=== PATIENT | female | born 1955 | race Caucasian/White ===

== ENCOUNTER → 2018-08-17 09:47 | Outpatient (CLI) | payer OTHER, SELFPAY ==
[2018-03-27 11:15] VITALS: BMI 42.0
--- NOTE | 2018-08-17 09:49 | DI.MG.S_ITS ---
BILATERAL DIGITAL SCREENING MAMMOGRAM 3D/2D WITH CAD: 08/17/2018 CLINICAL: Routine screening. Family history of breast cancer. Comparison is made to exams dated: 03/28/2016 mammogram, 03/25/2015 mammogram, and 03/20/2014 mammogram - [facility]. There are scattered fibroglandular elements in both breasts. Current study was also evaluated with a Computer Aided Detection (CAD) system. No significant masses, calcifications, or other findings are seen in either breast. There has been no significant interval change. IMPRESSION: NEGATIVE There is no mammographic evidence of malignancy. A 1 year screening mammogram is recommended.(08/18/2019) This exam was interpreted at Station ID: [id number]. NOTE: For mammograms, a report in lay terms will be sent to the patient. Approximately 15% of breast malignancies will not be visualized mammographically. In the management of a palpable breast mass, a negative mammogram must not discourage biopsy of a clinically suspicious lesion. Electronically Signed By: Morelia saldaña/asaf:08/19/2018 10:52:02 letter sent: Normal Exam ACR BI-RADS Category 1: Negative 3341F
== END ==
PROVIDERS: PCP Internal Medicine; Visit Provider Internal Medicine
DX: Z12.31 Encounter for screening mammogram for malignant neoplasm of breast (principal); Z80.3 Family history of malignant neoplasm of breast
CPT/HCPCS: 77063; 77067

== ENCOUNTER → 2019-03-11 12:03 | Outpatient (CLI) | payer OTHER, SELFPAY ==
[2018-03-27 11:15] VITALS: BMI 42.0
--- NOTE | 2019-03-11 12:05 | DI.RAD.S_ITS ---
PROCEDURE: XR HIP W PEL IF DONE LT MIN 4V INDICATIONS: hip pain TECHNIQUE: AP pelvis with lateral view(s) of the right hip(s). COMPARISON: None. FINDINGS: Bones: No fractures or dislocations. Pelvic ring appears intact. No suspicious bony lesions. Moderate degenerative changes of the right hip are present. There also are mild to moderate degenerative changes involving the remainder of the imaged pelvic joints. Soft tissues: The visualized bowel gas pattern is normal. No suspicious soft tissue calcifications. IMPRESSION: Moderate degenerative changes of the right hip without a displaced fracture evident. Dictated by: Rich Mora M.D. on 03/11/2019 at 12:37 Approved by: Rich Mora M.D. on 03/11/2019 at 12:37
== END ==
PROVIDERS: PCP Internal Medicine; Visit Provider Physician Assistant
DX: M16.11 Unilateral primary osteoarthritis, right hip (principal); M25.559 Pain in unspecified hip
CPT/HCPCS: 73522

== ENCOUNTER → 2019-04-10 11:33 | Outpatient (CLI) | payer OTHER, SELFPAY ==
[2018-03-27 11:15] VITALS: BMI 42.0
[2019-04-10 12:14] LABS: Influenza A and B by PCR Rapid Negative (Negative)
== END ==
PROVIDERS: PCP Internal Medicine; Visit Provider Physician Assistant
DX: R68.89 Other general symptoms and signs (principal)
CPT/HCPCS: 87400

== ENCOUNTER → 2019-04-10 15:32 | Outpatient (CLI) | payer OTHER, SELFPAY ==
[2018-03-27 11:15] VITALS: BMI 42.0
--- NOTE | 2019-04-10 15:34 | DI.RAD.S_ITS ---
PROCEDURE: XR CHEST 2V INDICATIONS: left upper lobe abnormal lung sounds TECHNIQUE: 2 views of the chest were acquired. COMPARISON: None. FINDINGS: Surgical changes and devices: None. Lungs and pleura: Patchy airspace opacities noted in the right lung concerning for pneumonia. No pleural effusions or pneumothorax. Mediastinum: Mediastinal contours are normal. Heart size is normal. Bones and chest wall: No suspicious bony abnormalities. Soft tissues appear unremarkable. IMPRESSION: Patchy right lung airspace opacities concerning for multilobar pneumonia. Dictated by: Vanessa Calvillo MD, PhD on 04/10/2019 at 15:50 Approved by: Vanessa Calvillo MD, PhD on 04/10/2019 at 15:51
== END ==
PROVIDERS: PCP Internal Medicine; Visit Provider Physician Assistant
DX: R05 Cough (principal); R68.89 Other general symptoms and signs
CPT/HCPCS: 71046; 87400

== ENCOUNTER → 2019-04-15 09:38 | Outpatient (CLI) | payer OTHER, SELFPAY ==
[2018-03-27 11:15] VITALS: BMI 42.0
--- NOTE | 2019-04-15 09:40 | DI.RAD.S_ITS ---
PROCEDURE: XR CHEST 2V INDICATIONS: cough TECHNIQUE: 2 views of the chest were acquired. COMPARISON: [facility], CR, XR CHEST 2V, 04/10/2019, 15:37. FINDINGS: Surgical changes and devices: None. Lungs and pleura: There is interval improvement of right upper lobe and right lower lobe consolidation since 04/10/19.. No pleural effusions or pneumothorax. Mediastinum: Mediastinal contours are normal. Heart size is normal. Bones and chest wall: No suspicious bony abnormalities. Soft tissues appear unremarkable. IMPRESSION: Interval improvement in right upper lobe and right lower lobe pneumonia since 04/10/19. Persistent bilateral ill-defined mild and groundglass opacities raise the possibility of background chronic interstitial disease/scarring versus superimposed pulmonary edema. Recommend clinical correlation. If there is persistent clinical diagnostic uncertainty, continued surveillance with short interval chest radiographs after treatment is recommended. Dictated by: Rodolfo Salinas M.D. on 04/15/2019 at 9:16 Approved by: Rodolfo Salinas M.D. on 04/15/2019 at 9:24
== END ==
PROVIDERS: PCP Internal Medicine; Visit Provider Physician Assistant
DX: J18.9 Pneumonia, unspecified organism (principal); R05 Cough
CPT/HCPCS: 71046

== ENCOUNTER → 2019-04-18 15:25 | Outpatient (CLI) | payer OTHER, SELFPAY ==
[2018-03-27 11:15] VITALS: BMI 42.0
[2019-04-18 17:35] LABS: Blood Urea Nitrogen 12 mg/dL (7-17); Calcium 9.8 mg/dL (8.4-10.2); Carbon Dioxide 33 mmol/L (22-32); Chloride 101 mmol/L (98-107); Estimated Glomerular Filt Rate > 60.0 mL/min (>60); Glucose 134 mg/dL (80-110); HEMOLYSIS < 15 (0-50); Potassium 5.2 mmol/L (3.4-5.1); Sodium 141 mmol/L (137-145)
[2019-04-18 17:41] LABS: Hematocrit 37.7 % (36-46); Mean Corpuscular HGB Conc 31.9 % (30-36); Mean Corpuscular Hemoglobin 23.7 PG (26-34); Mean Corpuscular Volume 74.3 fL (80-100); Platelet Count 458 X10^3/uL (150-400); Red Blood Cell Count 5.07 X10^6/uL (4.0-5.2); Red Cell Distribution Width 18.6 % (11.6-14.8); White Blood Cell Count 10.3 X10^3/uL (4.5-11.0)
[2019-04-18 17:48] LABS: Add Manual Diff / Slide Review YES
[2019-04-18 18:30] LABS: Anisocytosis 1+; Neutrophils Absolute Manual 8240 /uL (3000-5900); Total Cells Counted 100
[2019-04-18 18:31] LABS: Hypochromasia 1+; Poikilocytosis 1+
== END ==
PROVIDERS: PCP Family Medicine; Visit Provider Hospitalist
DX: J18.9 Pneumonia, unspecified organism (principal)
CPT/HCPCS: 36415; 80048; 85025

== ENCOUNTER → 2019-05-02 08:45 | Outpatient (CLI) | payer OTHER, SELFPAY ==
[2018-03-27 11:15] VITALS: BMI 42.0
[2019-05-02 09:04] LABS: Add Manual Diff / Slide Review NO; Basophils Absolute Auto 100 /uL (0-100); Basophils Percent Auto 1.3 % (0-2); Eosinophils Absolute Auto 400 /uL (0-450); Eosinophils Percent Auto 7.9 % (2-4); Hematocrit 37.7 % (36-46); Hemoglobin 12.1 g/dL (12.0-16.0); Lymphocytes Absolute Auto 2000 /uL (1100-4500); Lymphocytes Percent Auto 41.6 % (25-40); Mean Corpuscular HGB Conc 32.2 % (30-36); Mean Corpuscular Volume 74.7 fL (80-100); Monocytes Absolute Auto 500 /uL (0-900); Monocytes Percent Auto 9.4 % (3-14); Neutrophils Absolute Auto 1900 /uL (1500-7000); Neutrophils Percent Auto 39.8 % (50-75); Platelet Count 220 X10^3/uL (150-400); Red Blood Cell Count 5.04 X10^6/uL (4.0-5.2); Red Cell Distribution Width 19.8 % (11.6-14.8); White Blood Cell Count 4.8 X10^3/uL (4.5-11.0)
[2019-05-02 09:27] LABS: Blood Urea Nitrogen 14 mg/dL (7-17); Calcium 9.2 mg/dL (8.4-10.2); Carbon Dioxide 30 mmol/L (22-32); Chloride 104 mmol/L (98-107); Estimated Glomerular Filt Rate > 60.0 mL/min (>60); Glucose 98 mg/dL (80-110); HEMOLYSIS < 15 (0-50); Potassium 4.3 mmol/L (3.4-5.1); Sodium 139 mmol/L (137-145)
== END ==
PROVIDERS: PCP Family Medicine; Visit Provider Hospitalist
DX: E87.5 Hyperkalemia (principal); J18.9 Pneumonia, unspecified organism
CPT/HCPCS: 36415; 80048; 85025

== ENCOUNTER → 2019-05-28 14:33 | Outpatient (CLI) | payer OTHER, SELFPAY ==
[2018-03-27 11:15] VITALS: BMI 42.0
[2019-05-28 14:57] LABS: Add Manual Diff / Slide Review NO; Basophils Absolute Auto 100 /uL (0-100); Basophils Percent Auto 1.4 % (0-2); Eosinophils Absolute Auto 300 /uL (0-450); Eosinophils Percent Auto 4.3 % (2-4); Hemoglobin 12.3 g/dL (12.0-16.0); Lymphocytes Absolute Auto 2300 /uL (1100-4500); Lymphocytes Percent Auto 34.5 % (25-40); Mean Corpuscular HGB Conc 31.6 % (30-36); Mean Corpuscular Hemoglobin 24.7 PG (26-34); Mean Corpuscular Volume 78.2 fL (80-100); Monocytes Absolute Auto 600 /uL (0-900); Monocytes Percent Auto 9.6 % (3-14); Neutrophils Absolute Auto 3400 /uL (1500-7000); Neutrophils Percent Auto 50.2 % (50-75); Platelet Count 193 X10^3/uL (150-400); Red Blood Cell Count 4.98 X10^6/uL (4.0-5.2); White Blood Cell Count 6.8 X10^3/uL (4.5-11.0)
[2019-05-28 15:40] LABS: Alanine Aminotransferase 18 IU/L (9-52); Albumin 4.2 g/dL (3.5-5.0); Albumin Globulin Ratio 1.3 (1.0-2.8); Alkaline Phosphatase 63 U/L (38-126); Aspartate Aminotransferase 19 IU/L (14-36); Blood Urea Nitrogen 12 mg/dL (7-17); Calcium 9.4 mg/dL (8.4-10.2); Carbon Dioxide 30 mmol/L (22-32); Chloride 104 mmol/L (98-107); Cholesterol 194 mg/dL (140-199); Estimated Glomerular Filt Rate > 60.0 mL/min (>60); Globulin 3.2 g/dL (1.7-4.1); Glucose 89 mg/dL (80-110); HDL Cholesterol 100 mg/dL (40-60); HEMOLYSIS < 15 (0-50); LDL Cholesterol Calculated 82 mg/dL (<100); Potassium 4.2 mmol/L (3.4-5.1); Sodium 141 mmol/L (137-145); Total Protein 7.4 g/dL (6.3-8.2); Triglycerides 62 mg/dL (35-150)
[2019-05-28 15:51] LABS: Appearance Urine UA CLEAR; Bilirubin Urine UA NEGATIVE (NEGATIVE); Color Urine UA YELLOW; Glucose Urine UA NEGATIVE (Negative); Ketones Urine UA NEGATIVE (NEGATIVE); Leukocyte Esterase Urine UA 1+ (NEGATIVE); Nitrite Urine UA NEGATIVE (Negative); Occult Blood Urine UA NEGATIVE (Negative); Protein Urine UA NEGATIVE (Negative); Specific Gravity Urine UA 1.015 (1.000-1.035); Urobilinogen Urine UA 0.2 E.U./dL (0.2)
[2019-05-28 15:52] LABS: Bacteria Urine None Seen; RBC Urine None Seen (0-5/HPF); WBC Urine None Seen (0-5/HPF)
[2019-05-28 15:57] LABS: Free T3, Triiodothyronine Free 3.55 pg/mL (2.77-5.27)
[2019-05-28 16:07] LABS: Culture Indicated Urine Specimen Cultured; Renal Epithelial Cells Urine 0-1/HPF (0-1/HPF)
[2019-05-28 16:10] LABS: Thyroid Stimulating Hormone 0.85 uIU/mL (0.47-4.68)
== END ==
PROVIDERS: PCP Family Medicine; Visit Provider Family Medicine
DX: M25.551 Pain in right hip (principal); Z13.220 Encounter for screening for lipoid disorders; Z13.29 Encounter for screening for other suspected endocrine disorder; Z51.81 Encounter for therapeutic drug level monitoring
CPT/HCPCS: 36415; 80053; 80061; 81003; 81015; 84439; 84443; 84481; 85025; 87086; 87147

== ENCOUNTER → 2020-03-29 08:54 | Outpatient (CLI) | payer OTHER, SELFPAY ==
[2018-03-27 11:15] VITALS: BMI 42.0
[2020-03-29 10:39] LABS: Thyroid Stimulating Hormone 0.55 uIU/mL (0.47-4.68)
== END ==
PROVIDERS: PCP Nurse Practitioner Family; Referring Provider Nurse Practitioner Family; Visit Provider Nurse Practitioner Family
DX: E03.9 Hypothyroidism, unspecified (principal)
CPT/HCPCS: 36415; 84443

== ENCOUNTER → 2020-09-14 10:36 | Outpatient (CLI) | payer OTHER, SELFPAY ==
[2018-03-27 11:15] VITALS: BMI 42.0
[2020-09-15 06:45] LABS: COVID19 Sendout Not Detected (Not Detect)
== END ==
PROVIDERS: PCP Nurse Practitioner Family; Visit Provider Nurse Practitioner
DX: Z11.59 Encounter for screening for other viral diseases (principal)
CPT/HCPCS: 87635

== ENCOUNTER 2020-09-17 07:28 | Day surgery (SDC) | payer OTHER, SELFPAY ==
[2018-03-27 11:15] VITALS: BMI 42.0
--- NOTE | 2020-09-17 | PATH_ITS ---
[facility] Accession Number: [id number] . 01 Material submitted: . body - HYPERPLASTIC POLYPS AT 15CM . 02 Diagnosis: Colon, Polyps at 15 cm, Biopsy: Hyperplastic polyps. MRV 09/21/2020 1050 Local . 02 Electronically signed: . Cristina Wilhelm MD, Pathologist NPI- [id number] . 01 Gross description: . The specimen is received in formalin, labeled hyperplastic polyp at 15 cm, and consists of two banks-pink fragments of soft tissue measuring 0.5 x 0.4 x 0.2 cm in aggregate. The specimen is entirely submitted in cassette A1. ([id number]) /FRR 09/18/2020 1718 Local . 02 Pathologist provided ICD-10: K63.5 . 02 CPT . 934541 Performed at: 01 [facility] Located within [facility] [address], [place], [place] [id number] MD Jacob Lim MD Phone: [phone] Performed at: 02 [facility] [address] [place], [place] [id number] MD Cristina Wilhelm MD Phone: [phone]
[2020-09-17 07:45] VITALS: BMI 41.8
[2020-09-17 07:50] VITALS: BP 142/83; PULSE 82; RESP 12; TEMP 36.8; O2SAT 95
[2020-09-17] MEDS: SODIUM CHLORIDE 0.9% 1,000 ML 200 ML IV (07:58)
--- NOTE | 2020-09-17 08:16 | P.HP_ITS ---
History of Present Illness History of Present Illness Date Patient Seen: 09/17/20 Time Patient Seen: 08:17 Chief complaint: SDC Narrative: This is a 65-year-old woman who had a prior colonoscopy 14 years ago, which was reportedly normal. She denies any new symptoms of hematochezia, melena, unexplained abdominal pain, unexplained weight loss. She denies any significant medical problems with her heart or any difficulty tolerating sedation in the past. She denies sleep apnea or dyspnea on exertion. ROS: Sinus drainage, arthritis, urinary frequency/urgency, urinary incontinence, depression. Thirteen system review is otherwise negative other than as mentione d below and in HPI. PE GENERAL: Well groomed and cooperative. Morbidly obese, with weight distribution in the abdomen and hips. Appears stated age. Answers questions promptly and appropriately. Vital signs noted. HENT: Normocephalic, atraumatic. Hearing intact. EYES: Conjunctiva pink, sclera white, no periorbital swelling. CARDIOVASCULAR: Regular rate. No pedal edema. RESPIRATORY: Non-tachypneic, breathing comfortably on room air. GASTROINTESTINAL: Abdomen soft and non-distended GENITALURINARY: No flank tenderness. MUSCULOSKELETAL: Equal tone and mass bilaterally. SKIN: Warm, dry, soft, appropriate color for ethnicity. No other lesions, rashes, or wounds. NEURO: Alert and Oriented X 3. No gross sensory deficits, or cognitive issues. PSYCH: Appropriate affect and mood. Patient History Medical History Ankle fracture, left (Acute) Arthritis (Acute) Depression (Acute) Heartburn (Acute) History of urinary frequency (Acute) Hypothyroidism (Acute) Knee pain, bilateral (Acute) Menopause (Acute) Pneumonia (Acute) Screening for malignant neoplasm of breast (Acute) Screening for malignant neoplasm of colon (Acute) Urinary urgency (Acute) Vision impairment (Acute) Vitamin D deficiency (Acute) Surgical History H/O knee surgery (Acute) H/O knee surgery (Acute) Family & Social History Social History: household members spouse Tobacco & Substance use: Tobacco type cigarettes Smoking Status Former smoker alcohol intake current alcohol intake frequency 0-2 drinks per day Substance Use Type does not use Meds Home Medications and Allergies Home Medications Medication Instructions Recorded Confirmed Type Glucosamine-MSM Complex 3,000 mg PO QDAY 03/19/18 09/17/20 History cholecalciferol (vitamin D3) 5,000 unit PO DAILY 03/19/18 09/17/20 History [Vitamin D3] cyanocobalamin (vitamin B-12) 1,000 mcg PO DAILY 03/19/18 09/17/20 History [Vitamin B-12] trazodone 50 mg tablet 50 mg PO BEDTIME #90 tab 05/28/19 09/17/20 Rx levothyroxine 88 mcg tablet 88 mcg PO DAILY #90 tab 08/26/20 09/17/20 Rx fluoxetine 60 mg tablet 60 mg PO DAILY #90 tab 09/12/20 09/17/20 Rx Allergies Allergy/AdvReac Type Severity Reaction Status Date / Time oxytetracycline Allergy Unknown Rash Verified 09/17/20 07:41 [From Terramycin] Penicillins Allergy Unknown Rash Verified 09/17/20 07:41 codeine AdvReac Intermediate Vomiting Verified 09/17/20 07:41 Exam Vital Signs (past 8 hours): - 09/17/20 07:50 Temperature 98.3 F Pulse Rate 82 Respiratory Rate 12 Blood Pressure 142/83 H Pulse Oximetry 95 Oxygen Delivery Method Room Air Assessment & Plan Assessment and plan (1) At average risk for colon cancer: Status: Acute Assessment & Plan narrative: Risks and benefits of screening colonoscopy and possible polypectomy were discussed with the patient including risk of bleeding, perforation, need for additional procedures, risks of anesthesia. The patient desires to proceed with the colonoscopy procedure. COVID-19 COVID-19 status: Negative Result date/Date tested (Pos, Neg/Pending): 09/14/20 Time Spent With Patient Time with patient: 15-24 minutes Quality VTE Deep Vein Thrombosis/Pulmonary Embolism Present on Admission: No
[2020-09-17] MEDS: fentaNYL 250 MCG/5 ML INJ IV (08:18)
[2020-09-17] MEDS: MIDAZOLAM 5 MG/5 ML VIAL IV (08:18)
--- NOTE | 2020-09-17 08:19 | P.OP.ENDO_ITS ---
Operative Date/Time/Diagnoses Date of procedure: 09/17/20 Time of procedure: 08:19 Pre-op diagnosis: Average risk for colon cancer Post-op diagnosis: other (Two small polyps) Procedure & Clinicians Study performed: Colonoscopy Procedural sedation performed by the endoscopist Polypectomy x2 with cold forceps Same procedure as scheduled: Yes Indications: Average risk for colon cancer, greater than 10 years since last colonoscopy Surgeon: Elisabeth Reilly Procedure Notes SCOAP/Timeout: Performed Procedure in detail: The patient was brought to the room and placed in left lateral decubitus position with all bony prominences padded. A time-out was performed and then the patient was given procedural sedation starting with 2 mg of Versed and 100 mcg of fentanyl. A total of 4 mg of Versed and 150 micro g of fentanyl were given for the entire procedure. Vitals were monitored throughout the procedure and remained stable. Once adequately sedated, the procedure was begun. A rectal exam was performed revealing no abnormalities. The colonoscope was then introduced to the rectum and advanced to the cecum in the usual fashion. The cecum was identified by the appendiceal orifice, the mucosal tri- fold, and the ileocecal valve. The scope was then retracted while rotating side to side and examining each mucosal fold. Two small polyps were found at 15 cm in the rectum, and removed completely with Jumbo forceps. At the conclusion of the procedure retroflexion was performed and small grade 1-2 internal hemorrhoids without stigmata of bleeding were seen. The scope was then withdrawn from the rectum the procedure was concluded. The patient tolerated the procedure well and was transferred to the PACU in stable condition. Scope withdrawal time: 11 Sedation minutes: 28 Findings: polyp Specimen(s): other (Two small polyps from the rectum) Complications: none Impression: Two benign-appearing polyps were found and removed from the rectum. Post-procedure Recommendations: Colonscopy in 10 years (Final recommendation will be sent to the patient after pathology results are returned) Follow up: as needed Disposition: PACU
[2020-09-17 08:55] VITALS: BP 119/78; PULSE 87; RESP 17; TEMP 36.3; O2SAT 96
[2020-09-17 09:05] VITALS: BP 132/76; PULSE 68; RESP 15; O2SAT 96
[2020-09-17 09:10] VITALS: BP 108/66; PULSE 63; RESP 14; TEMP 36.9; O2SAT 97
== END 2020-09-17 09:22 | disposition home or self-care (01) ==
PROVIDERS: PCP Nurse Practitioner Family; Referring Provider Nurse Practitioner Family; Visit Provider Surgery
PROC: 0DJD8ZZ Inspection of Lower Intestinal Tract, Via Natural or Artificial Opening Endoscopic (ICD-10-PCS; CPT 45378; principal; 2020-09-17 08:30)
DX: Z12.11 Encounter for screening for malignant neoplasm of colon (principal); N39.41 Urge incontinence; F32.9 Major depressive disorder, single episode, unspecified; K64.0 First degree hemorrhoids; K63.5 Polyp of colon
CPT/HCPCS: 45380; 99152; 99153; J2250; J3010

== ENCOUNTER → 2020-09-18 08:13 | Outpatient (CLI) | payer OTHER, SELFPAY ==
[2018-03-27 11:15] VITALS: BMI 42.0
--- NOTE | 2020-09-18 08:14 | DI.MG.S_ITS ---
BILATERAL DIGITAL SCREENING MAMMOGRAM 3D/2D WITH CAD: 09/18/2020 CLINICAL: Routine screening. Family history of breast cancer. Comparison is made to exams dated: 08/17/2018 mammogram, 03/28/2016 mammogram, and 03/25/2015 mammogram - [facility]. There are scattered fibroglandular elements in both breasts. Current study was also evaluated with a Computer Aided Detection (CAD) system. No significant masses, calcifications, or other findings are seen in either breast. There has been no significant interval change. IMPRESSION: NEGATIVE There is no mammographic evidence of malignancy. A 1 year screening mammogram is recommended. This exam was interpreted at Station ID: [id number]. NOTE: For mammograms, a report in lay terms will be sent to the patient. Approximately 15% of breast malignancies will not be visualized mammographically. In the management of a palpable breast mass, a negative mammogram must not discourage biopsy of a clinically suspicious lesion. Electronically Signed By: Jacob dempsey/asaf:09/20/2020 07:51:10 letter sent: Normal Exam ACR BI-RADS Category 1: Negative 3341F
== END ==
PROVIDERS: PCP Nurse Practitioner Family; Referring Provider Nurse Practitioner Family; Visit Provider Nurse Practitioner Family
DX: Z12.31 Encounter for screening mammogram for malignant neoplasm of breast (principal); Z80.3 Family history of malignant neoplasm of breast
CPT/HCPCS: 77063; 77067

== ENCOUNTER 2020-10-17 16:53 | Emergency (ER) | payer OTHER, SELFPAY ==
[2018-03-27 11:15] VITALS: BMI 42.0
[2020-10-17] VITALS (10 sets, daily range): BP systolic 124–148; BP diastolic 70–78; PULSE 60–92; RESP 16–20; TEMP 36; O2SAT 93–98
--- NOTE | 2020-10-17 17:02 | DI.RAD.S_ITS ---
PROCEDURE: XR SHOULDER LT MIN 2V INDICATIONS: fall pain TECHNIQUE: 3 views of the shoulder were acquired. COMPARISON: None. FINDINGS: Bones: No fractures or dislocations. No suspicious bony lesions. Visualized ribs appear intact. Mild degenerative changes of the acromioclavicular and glenohumeral joints. Soft tissues: No suspicious soft tissue calcifications. IMPRESSION: No acute osseous abnormality. Dictated by: Morgan Figueroa D.O. on 10/17/2020 at 16:27 Approved by: Morgan Figueroa D.O. on 10/17/2020 at 16:28
--- NOTE | 2020-10-17 17:02 | DI.RAD.S_ITS ---
PROCEDURE: XR CHEST 1V INDICATIONS: fall TECHNIQUE: One view of the chest was acquired. COMPARISON: [facility]erged [facility], CR, XR CHEST 2V, 04/15/2019, 10:02. FINDINGS: Surgical changes and devices: None. Lungs and pleura: No focal consolidation, pneumothorax, or pleural effusion. There is interval resolution of previously noted opacities. Mediastinum: Mediastinal contours appear normal. Heart size is normal. Bones and chest wall: No suspicious bony lesions. No displaced rib fractures. Overlying soft tissues appear unremarkable. IMPRESSION: No acute cardiopulmonary abnormality. No displaced rib fractures within limits of this exam. Dictated by: Morgan Figueroa D.O. on 10/17/2020 at 16:14 Approved by: Morgan Figueroa D.O. on 10/17/2020 at 16:17
--- NOTE | 2020-10-17 17:02 | DI.RAD.S_ITS ---
PROCEDURE: XR PELVIS 1-2V INDICATIONS: fall TECHNIQUE: 1 view(s) of the pelvis acquired. COMPARISON: None. FINDINGS: Bones: No fractures or dislocations. No suspicious bony lesions. Moderate degenerative changes of the hips. Degenerative changes of the spine are incompletely evaluated. Soft tissues: Visualized bowel gas pattern is normal. Pelvic phleboliths. IMPRESSION: No acute osseous abnormality. Moderate degenerative changes of the hips. Dictated by: Morgan Figueroa D.O. on 10/17/2020 at 16:17 Approved by: Morgan Fgiueroa D.O. on 10/17/2020 at 16:19
--- NOTE | 2020-10-17 17:02 | DI.CT.S_ITS ---
PROCEDURE: CT HEAD/BRAIN WO CON INDICATIONS: fall down stairs TECHNIQUE: Noncontrast 4.5 mm thick angled axial sections acquired from the foramen magnum to the vertex, with coronal and sagittal reformats. For radiation dose reduction, the following was used: automated exposure control, adjustment of mA and/or kV according to patient size. COMPARISON: None. FINDINGS: Image quality: Excellent. CSF spaces: Basal cisterns are patent. No extra-axial fluid collections. Ventricles are normal in size and shape. Brain: No midline shift. No intracranial masses or hemorrhage. Wilson-white matter interface is normal. Skull and face: Calvarium and visualized facial bones are intact, without suspicious lesions. Large hematoma overlying the left occiput. Sinuses: Visualized sinuses and mastoids are clear. IMPRESSION: Large soft tissue hematoma overlying the left occiput. No evidence of a displaced skull fracture or acute intracranial hemorrhage. Dictated by: Morgan Figueroa D.O. on 10/17/2020 at 16:29 Approved by: Morgan Figueroa D.O. on 10/17/2020 at 16:32
--- NOTE | 2020-10-17 17:02 | DI.CT.S_ITS ---
PROCEDURE: CT CERVICAL SPINE WO CON INDICATIONS: fall down stairs TECHNIQUE: Noncontrast 3 mm thick sections acquired from the skull base to the T4 level. Sagittal and coronal reformats were then constructed. For radiation dose reduction, the following was used: automated exposure control, adjustment of mA and/or kV according to patient size. COMPARISON: [facility], CR, XR SHOULDER LT MIN 2V, 10/17/2020, 17:07. FINDINGS: Image quality: Excellent. Bones: There is a nondisplaced fracture of the superior facet on the right C6. No additional fractures are noted. No listhesis. Vertebral body heights are maintained. There is multilevel intervertebral disc space loss worse C5-C6 and C6-C7. There is endplate degenerative changes. No significant spinal canal stenosis. There is mild to moderate neural foraminal stenosis at these levels. Soft tissues: Prevertebral soft tissues are normal in thickness. No paravertebral hematomas. No apical pneumothoraces. IMPRESSION: Nondisplaced fracture of the superior facet of C6. No additional fracture or traumatic subluxation. Moderate degenerative spondylopathy worse at C5-C6 and C6-C7. Findings discussed with the ordering provider Dr. Elli Nicole by Dr. Morgan Figueroa over the telephone 4:45 p.m. [place] Standard time on 10/17/2020 Dictated by: Mrogan Figueroa D.O. on 10/17/2020 at 16:33 Approved by: Morgan Figueroa D.O. on 10/17/2020 at 16:49
[2020-10-17] MEDS: MORPHINE 2 MG/ML INJ IV (17:41)
[2020-10-17] MEDS: ONDANSETRON 4 MG/2 ML INJ IV (17:41)
--- NOTE | 2020-10-17 17:49 | ED_ITS ---
HPI - Trauma <Elli Nicole DO - Last Filed: 10/18/20 07:09> General Chief Complaint: Trauma Stated Complaint: modified trauma Time Seen by Provider: 10/17/20 17:02 Source: patient and EMS Mode of arrival: Ambulatory Limitations: no limitations History of Present Illness HPI narrative: Patient is a 65-year-old female who fell down at least 5 stairs. She apparently was bringing the vacuum up the stairs she fell up putting her head through the drywall. She does not remember getting up to sit in the chair but her eventually found her in the chair. She is not on any blood thin ner she has no nausea or vomiting. Complaining of left shoulder pain as well. MD complaint: fall Onset (ago): unknown Loss of Consciousness: yes Location: head Location - Extremities: Left: shoulder Related Data Home Medications Medication Instructions Recorded Confirmed Glucosamine-MSM Complex 3,000 mg PO QDAY 03/19/18 09/17/20 cholecalciferol (vitamin D3) 5,000 unit PO DAILY 03/19/18 09/17/20 [Vitamin D3] cyanocobalamin (vitamin B-12) 1,000 mcg PO DAILY 03/19/18 09/17/20 [Vitamin B-12] Previous Rx's Medication Instructions Recorded trazodone 50 mg tablet 50 mg PO BEDTIME #90 tab 05/28/19 levothyroxine 88 mcg tablet 88 mcg PO DAILY #90 tab 08/26/20 fluoxetine 60 mg tablet 60 mg PO DAILY #90 tab 09/12/20 Allergies Allergy/AdvReac Type Severity Reaction Status Date / Time oxytetracycline Allergy Unknown Rash Verified 09/17/20 07:41 [From Terramycin] Penicillins Allergy Unknown Rash Verified 09/17/20 07:41 codeine AdvReac Intermediate Vomiting Verified 09/17/20 07:41 Review of Systems <DO Emory Vasquez Last Filed: 10/18/20 07:09> Review of Systems Narrative: GENERAL: Denies chills, fatigue, malaise, fever, sweats, travel HEENT: Denies sinus pain, ear pain, sore throat, difficulty swallowing, neck pain RESPIRATORY: Denies dyspnea, cough, wheezing, hemoptysis, sputum. CARDIOVASCULAR: Denies chest pain, palpitations, orthopnea, edema GASTROINTESTINAL: Denies nausea, vomiting, abdominal pain, diarrhea, constipation, melena. : Denies dysuria, frequency, incontinence, hematuria, urinary retention, flank pain. MUSCULOSKELETAL: See HPI SKIN: No rash, no erythema, no pruritus NEUROLOGIC: Denies weakness, dizziness, headache, numbness, change in speech, confusion PSYCHIATRIC: No concerning psychosocial issues. 12 point review of systems is negative except for those stated above and HPI Patient History <Elli Nicole DO - Last Filed: 10/18/20 07:09> Medical History (Updated 10/17/20 @ 21:38 by Kenton Aldana DO) Ankle fracture, left Arthritis Depression Heartburn History of urinary frequency Hypothyroidism Knee pain, bilateral Menopause Pneumonia Screening for malignant neoplasm of breast Screening for malignant neoplasm of colon Urinary urgency Vision impairment Vitamin D deficiency Surgical History H/O knee surgery H/O knee surgery Social History household members: spouse Smoking Status: Former smoker alcohol intake: current Smoking Status: Former smoker alcohol intake frequency: 0-2 drinks per day Substance Use Type: does not use Exam <Elli Nicole DO - Last Filed: 10/18/20 07:09> Initial Vital Signs Initial Vital Signs: Vital Signs Temperature 96.8 F L 10/17/20 17:02 Pulse Rate 60 10/17/20 17:02 Respiratory Rate 20 10/17/20 17:02 Blood Pressure 142/76 H 10/17/20 17:02 Pulse Oximetry 98 10/17/20 17:02 GENERAL: Well-appearing, well-nourished and in no acute distress. HEENT: Head contusion left parietal,, EOMI, pupils reactive, face symmetric, moist mucous membranes, no hemotympanum, no septal hematoma NECK: Midline tenderness and some right-sided tenderness about C5 see 6. C- collar placed in the ED CARDIOVASCULAR: Regular rate and rhythm without murmurs, rubs or gallops. RESPIRATORY: Breath sounds equal bilaterally, no wheezes rales or rhonchi. No crepitations, no subcutaneous air, chest is nontender, no signs of trauma ABDOMEN: Soft, nontender. Normoactive bowel sounds all 4 quadrants. No guarding or rebound. BACK: Nontender vertebrae, no step-offs, no contusions PELVIS: stable. EXTREMITIES: Normal range of motion, no clubbing or edema. Right upper extremity: Within normal limits Left upper extremity: Abrasion possible deformity and on the left shoulder sensation deltoid intact again strong distal radial pulse Right lower extremity: Within normal limits Left lower extremity:Within normal limits NEUROLOGICAL: Cranial nerves II through XII grossly intact. Normal gait and speech. SKIN: Warm, dry, no petechiae, no rashes or lesions, no contusions or ecchymosis <Kenton Aldana, DO - Last Filed: 10/17/20 23:23> Initial Vital Signs Initial Vital Signs: Vital Signs Temperature 96.8 F L 10/17/20 17:02 Pulse Rate 60 10/17/20 17:02 Respiratory Rate 20 10/17/20 17:02 Blood Pressure 142/76 H 10/17/20 17:02 Pulse Oximetry 98 10/17/20 17:02 Course <Elli Nicole DO - Last Filed: 10/18/20 07:09> Orders Ordered: Discontinued Medications Hydromorphone HCl (Hydromorphone 0.5 Mg Inj) 0.5 mg IV NOW ONE Stop: 10/17/20 18:22 Last Admin: 10/17/20 18:30 Dose: 0.5 mg Documented by: Morphine Sulfate (Morphine 2 Mg/Ml Inj) 2 mg IV NOW ONE Stop: 10/17/20 17:03 Last Admin: 10/17/20 17:41 Dose: 2 mg Documented by: MMINOR Ondansetron HCl (Ondansetron 4 Mg/2 Ml Inj) 4 mg IV NOW ONE Stop: 10/17/20 17:03 Last Admin: 10/17/20 17:41 Dose: 4 mg Documented by: MMINOR Vital Signs Vital signs: Vital Signs - 8 hr 10/17/20 17:02 10/17/20 17:38 10/17/20 18:00 Temperature 96.8 F L Pulse Rate 60 63 72 Respiratory Rate 20 Blood Pressure 142/76 H 148/75 H Pulse Oximetry 98 98 95 10/17/20 18:30 10/17/20 19:00 10/17/20 19:30 Temperature Pulse Rate 78 88 86 Respiratory Rate Blood Pressure 145/70 H 138/76 128/73 Pulse Oximetry 97 96 95 10/17/20 20:00 10/17/20 20:30 10/17/20 21:00 Temperature Pulse Rate 88 92 H 90 Respiratory Rate 17 Blood Pressure 143/74 H 135/78 124/74 Pulse Oximetry 96 95 93 10/17/20 21:30 Temperature Pulse Rate 91 H Respiratory Rate 16 Blood Pressure 129/75 Pulse Oximetry 94 <Kenton Aldana, DO - Last Filed: 10/17/20 23:23> Course Course Narrative: Patient received in sign-out from Dr. Nicole. I have performed an independent history and physical have no significant additions to make. She continues to have no numbness, tingling or weakness of her right upper extremity. We have searched for an [place] collar but have known in stock until it least tomorrow. Images have been pushed to [facility] have placed a call to speak with spine trauma 1854 - [facility] who requests I speak with Neurosurgery 1934 - call from Dr. Sellers who has reviewed images, not likely surgical candidate, but accepts transfer, requests we speak with ED 1940 - Dr. Martinez ([facility]) happy to accept Orders Ordered: Discontinued Medications Hydromorphone HCl (Hydromorphone 0.5 Mg Inj) 0.5 mg IV NOW ONE Stop: 10/17/20 18:22 Last Admin: 10/17/20 18:30 Dose: 0.5 mg Documented by: Morphine Sulfate (Morphine 2 Mg/Ml Inj) 2 mg IV NOW ONE Stop: 10/17/20 17:03 Last Admin: 10/17/20 17:41 Dose: 2 mg Documented by: MMINOR Ondansetron HCl (Ondansetron 4 Mg/2 Ml Inj) 4 mg IV NOW ONE Stop: 10/17/20 17:03 Last Admin: 10/17/20 17:41 Dose: 4 mg Documented by: MMINOR Vital Signs Vital signs: Vital Signs - 8 hr 10/17/20 17:02 10/17/20 17:38 10/17/20 18:00 Temperature 96.8 F L Pulse Rate 60 63 72 Respiratory Rate 20 Blood Pressure 142/76 H 148/75 H Pulse Oximetry 98 98 95 10/17/20 18:30 10/17/20 19:00 10/17/20 19:30 Temperature Pulse Rate 78 88 86 Respiratory Rate Blood Pressure 145/70 H 138/76 128/73 Pulse Oximetry 97 96 95 10/17/20 20:00 10/17/20 20:30 10/17/20 21:00 Temperature Pulse Rate 88 92 H 90 Respiratory Rate 17 Blood Pressure 143/74 H 135/78 124/74 Pulse Oximetry 96 95 93 10/17/20 21:30 Temperature Pulse Rate 91 H Respiratory Rate 16 Blood Pressure 129/75 Pulse Oximetry 94 MDM - Trauma <Elli Nicole, DO - Last Filed: 10/18/20 07:09> Lab Data Result diagrams: 10/17/20 17:37 10/17/20 17:37 Labs: Lab Results 10/17/20 10/17/20 10/17/20 Range/Units 17:37 17:37 18:58 WBC 9.6 (4.5-11.0) X10^3/uL RBC 5.00 (4.0-5.2) X10^6/uL Hgb 14.4 (12.0-16.0) g/dL Hct 43.3 (36-46) % MCV 86.5 (80-100) fL MCH 28.8 (26-34) PG MCHC 33.3 (30-36) % RDW 15.3 H (11.6-14.8) % Plt Count 168 (150-400) X10^3/uL Neut % (Auto) 72.3 (50-75) % Lymph % (Auto) 18.1 L (25-40) % Kendall % (Auto) 7.7 (3-14) % Eos % (Auto) 1.2 L (2-4) % Baso % (Auto) 0.7 (0-2) % Neut # (Auto) 6900 (0166-9730) /uL Lymph # (Auto) 1700 (1645-1403) /uL Kendall # (Auto) 700 (0-900) /uL Eos # (Auto) 100 (0-450) /uL Baso # (Auto) 100 (0-100) /uL Sodium 138 (137-145) mmol/L Potassium 3.6 (3.4-5.1) mmol/L Chloride 106 (98-107) mmol/L Carbon Dioxide 27 (22-32) mmol/L BUN 19 H (7-17) mg/dL Creatinine 0.69 (0.52-1.04) mg/dL Estimated GFR > 60.0 (>60) mL/min BUN/Creatinine Ratio 27.5 H (6-22) Glucose 126 H (80-110) mg/dL Calcium 9.3 (8.4-10.2) mg/dL Total Bilirubin 0.8 (0.2-1.3) mg/dL AST 38 H (14-36) IU/L ALT 16 (<35) IU/L Alkaline Phosphatase 72 (38-126) U/L Total Creatine Kinase 719 H (30-135) U/L CK-MB (CK-2) 13.40 H (<2.37) ng/mL CK-MB (CK-2) Rel Index 1.9 (1.5-5.0) % Troponin I < 0.012 (0.01-0.034) ng/mL Total Protein 7.4 (6.3-8.2) g/dL Albumin 4.0 (3.5-5.0) g/dL Globulin 3.4 (1.7-4.1) g/dL Albumin/Globulin Ratio 1.2 (1.0-2.8) COVID-19 PCR Negative (Negative) Imaging Data CT scan - head: Radiologist's Impression: PROCEDURE: CT HEAD/BRAIN WO CON INDICATIONS: fall down stairs TECHNIQUE: Noncontrast 4.5 mm thick angled axial sections acquired from the foramen magnum to the vertex, with coronal and sagittal reformats. For radiation dose reduction, the following was used: automated exposure control, adjustment of mA and/or kV according to patient size. COMPARISON: None. FINDINGS: Image quality: Excellent. CSF spaces: Basal cisterns are patent. No extra-axial fluid collections. Ventricles are normal in size and shape. Brain: No midline shift. No intracranial masses or hemorrhage. Wilson-white matter interface is normal. Skull and face: Calvarium and visualized facial bones are intact, without suspicious lesions. Large hematoma overlying the left occiput. Sinuses: Visualized sinuses and mastoids are clear. IMPRESSION: Large soft tissue hematoma overlying the left occiput. No evidence of a displaced skull fracture or acute intracranial hemorrhage. Dictated by: Morgan Figueroa D.O. on 10/17/2020 at 16:29 CT - cervical spine: Radiologist's Impression: PROCEDURE: CT CERVICAL SPINE WO CON INDICATIONS: fall down stairs TECHNIQUE: Noncontrast 3 mm thick sections acquired from the skull base to the T4 level. Sagittal and coronal reformats were then constructed. For radiation dose reduction, the following was used: automated exposure control, adjustment of mA and/or kV according to patient size. COMPARISON: [facility], , XR SHOULDER LT MIN 2V, 10/17/2020, 17:07. FINDINGS: Image quality: Excellent. Bones: There is a nondisplaced fracture of the superior facet on the right C6. No additional fractures are noted. No listhesis. Vertebral body heights are maintained. There is multilevel intervertebral disc space loss worse C5-C6 and C6-C7. There is endplate degenerative changes. No significant spinal canal stenosis. There is mild to moderate neural foraminal stenosis at these levels. Soft tissues: Prevertebral soft tissues are normal in thickness. No paravertebral hematomas. No apical pneumothoraces. IMPRESSION: Nondisplaced fracture of the superior facet of C6. No additional fracture or traumatic subluxation. Moderate degenerative spondylopathy worse at C5-C6 and C6-C7. Findings discussed with the ordering provider Dr. Elli Nicole by Dr. Morgan Figueroa over the telephone 4:45 p.m. [place] Standard time on 10/17/2020 Dictated by: Morgan Figueroa D.O. on 10/17/2020 at 16:33 Extremity x-ray #1: Radiologist's Impression: PROCEDURE: XR SHOULDER LT MIN 2V INDICATIONS: fall pain TECHNIQUE: 3 views of the shoulder were acquired. COMPARISON: None. FINDINGS: Bones: No fractures or dislocations. No suspicious bony lesions. Visualized ribs appear intact. Mild degenerative changes of the acromioclavicular and glenoh umeral joints. Soft tissues: No suspicious soft tissue calcifications. IMPRESSION: No acute osseous abnormality. Dictated by: Morgan Figueroa D.O. on 10/17/2020 at 16:27 Extremity x-ray #2: Radiologist's Impression: PROCEDURE: XR PELVIS 1-2V INDICATIONS: fall TECHNIQUE: 1 view(s) of the pelvis acquired. COMPARISON: None. FINDINGS: Bones: No fractures or dislocations. No suspicious bony lesions. Moderate degenerative changes of the hips. Degenerative changes of the spine are incompletely evalua francisco. Soft tissues: Visualized bowel gas pattern is normal. Pelvic phleboliths. IMPRESSION: No acute osseous abnormality. Moderate degenerative changes of the hips. Dictated by: Morgan Figueroa D.O. on 10/17/2020 at 16:17 ECG Data Attestation: I personally reviewed and interpreted this ECG as follows: Prior ECG tracings: available for review Interpretation: Normal sinus rhythm rate 69 p.r. interval 139 QRS [address] changes similar to previous EKG MDM Narrative Medical decision making narrative: Patient is found to have a C6 facet fracture. Patient signed out to Dr. Aldana for further management <Kenton Aldana, - Last Filed: 10/17/20 23:23> Lab Data Labs: Lab Results 10/17/20 10/17/20 10/17/20 Range/Units 17:37 17:37 18:58 WBC 9.6 (4.5-11.0) X10^3/uL RBC 5.00 (4.0-5.2) X10^6/uL Hgb 14.4 (12.0-16.0) g/dL Hct 43.3 (36-46) % MCV 86.5 (80-100) fL MCH 28.8 (26-34) PG MCHC 33.3 (30-36) % RDW 15.3 H (11.6-14.8) % Plt Count 168 (150-400) X10^3/uL Neut % (Auto) 72.3 (50-75) % Lymph % (Auto) 18.1 L (25-40) % Kendall % (Auto) 7.7 (3-14) % Eos % (Auto) 1.2 L (2-4) % Baso % (Auto) 0.7 (0-2) % Neut # (Auto) 6900 (6448-1650) /uL Lymph # (Auto) 1700 (0730-4124) /uL Kendall # (Auto) 700 (0-900) /uL Eos # (Auto) 100 (0-450) /uL Baso # (Auto) 100 (0-100) /uL Sodium 138 (137-145) mmol/L Potassium 3.6 (3.4-5.1) mmol/L Chloride 106 (98-107) mmol/L Carbon Dioxide 27 (22-32) mmol/L BUN 19 H (7-17) mg/dL Creatinine 0.69 (0.52-1.04) mg/dL Estimated GFR > 60.0 (>60) mL/min BUN/Creatinine Ratio 27.5 H (6-22) Glucose 126 H (80-110) mg/dL Calcium 9.3 (8.4-10.2) mg/dL Total Bilirubin 0.8 (0.2-1.3) mg/dL AST 38 H (14-36) IU/L ALT 16 (<35) IU/L Alkaline Phosphatase 72 (38-126) U/L Total Creatine Kinase 719 H (30-135) U/L CK-MB (CK-2) 13.40 H (<2.37) ng/mL CK-MB (CK-2) Rel Index 1.9 (1.5-5.0) % Troponin I < 0.012 (0.01-0.034) ng/mL Total Protein 7.4 (6.3-8.2) g/dL Albumin 4.0 (3.5-5.0) g/dL Globulin 3.4 (1.7-4.1) g/dL Albumin/Globulin Ratio 1.2 (1.0-2.8) COVID-19 PCR Negative (Negative) Discharge Plan Departure Patient Disposition: [facility] Clinical Impression: C6 cervical fracture Qualifiers: Encounter type: initial encounter Fracture type: closed Fracture morphology: unspecified fracture morphology Fracture alignment: nondisplaced Qualified Code(s): S12.501A - Unspecified nondisplaced fracture of sixth cervical vert ebra, initial encounter for closed fracture Concussion Qualifiers: Encounter type: initial encounter Loss of consciousness presence/duration: with LOC of 30 min or less Qualified Code(s): S06.0X1A - Concussion with loss of consciousness of 30 minutes or less, initial encounter Prescriptions: No Action fluoxetine 60 mg tablet 60 mg PO DAILY Qty: 90 RF: 1 trazodone 50 mg tablet 50 mg PO BEDTIME Qty: 90 RF: 1 levothyroxine 88 mcg tablet 88 mcg PO DAILY Qty: 90 RF: 2 cyanocobalamin (vitamin B-12) [Vitamin B-12] 1,000 mcg Tablet 1,000 mcg PO DAILY RF: 0 Glucosamine-MSM Complex 500-333-5 mg Capsule 3,000 mg PO QDAY RF: 0 cholecalciferol (vitamin D3) [Vitamin D3] 5,000 unit Tablet 5,000 unit PO DAILY RF: 0 Referrals: Eugene Allen ARNP [Primary Care Provider] -
[2020-10-17 17:53] LABS: Add Manual Diff / Slide Review NO; Basophils Absolute Auto 100 /uL (0-100); Basophils Percent Auto 0.7 % (0-2); Eosinophils Absolute Auto 100 /uL (0-450); Eosinophils Percent Auto 1.2 % (2-4); Hematocrit 43.3 % (36-46); Hemoglobin 14.4 g/dL (12.0-16.0); Lymphocytes Absolute Auto 1700 /uL (1100-4500); Lymphocytes Percent Auto 18.1 % (25-40); Mean Corpuscular HGB Conc 33.3 % (30-36); Mean Corpuscular Hemoglobin 28.8 PG (26-34); Mean Corpuscular Volume 86.5 fL (80-100); Monocytes Absolute Auto 700 /uL (0-900); Monocytes Percent Auto 7.7 % (3-14); Neutrophils Absolute Auto 6900 /uL (1500-7000); Neutrophils Percent Auto 72.3 % (50-75); Platelet Count 168 X10^3/uL (150-400); Red Cell Distribution Width 15.3 % (11.6-14.8); White Blood Cell Count 9.6 X10^3/uL (4.5-11.0)
[2020-10-17 18:01] LABS: Alanine Aminotransferase 16 IU/L (<35); Albumin Globulin Ratio 1.2 (1.0-2.8); Alkaline Phosphatase 72 U/L (38-126); Aspartate Aminotransferase 38 IU/L (14-36); BUN Creatinine Ratio 27.5 (6-22); Bilirubin Total 0.8 mg/dL (0.2-1.3); Blood Urea Nitrogen 19 mg/dL (7-17); Calcium 9.3 mg/dL (8.4-10.2); Carbon Dioxide 27 mmol/L (22-32); Chloride 106 mmol/L (98-107); Creatine Kinase 719 U/L (30-135); Estimated Glomerular Filt Rate > 60.0 mL/min (>60); Globulin 3.4 g/dL (1.7-4.1); Glucose 126 mg/dL (80-110); HEMOLYSIS < 15 (0-50); Potassium 3.6 mmol/L (3.4-5.1); Sodium 138 mmol/L (137-145); Total Protein 7.4 g/dL (6.3-8.2)
[2020-10-17 18:13] LABS: Troponin I < 0.012 ng/mL (0.01-0.034)
[2020-10-17 18:17] LABS: CKMB % Relative Index 1.9 % (1.5-5.0)
[2020-10-17] MEDS: HYDROMORPHONE 0.5 MG INJ IV (18:30)
[2020-10-17 19:40] LABS: COVID19 -Nasal RAPID Negative (Negative)
== END 2020-10-17 21:55 | disposition short-term general hospital (02) ==
PROVIDERS: Emergency Medicine; Emergency Provider Emergency Medicine; PCP Nurse Practitioner Family
DX: S12.501A Unspecified nondisplaced fracture of sixth cervical vertebra, initial encounter for closed fracture (principal); S06.0X1A Concussion with loss of consciousness of 30 minutes or less, initial encounter; M25.512 Pain in left shoulder; W10.9XXA Fall (on) (from) unspecified stairs and steps, initial encounter
CPT/HCPCS: 36415; 70450; 71045; 72125; 72170; 73030; 80053; 82550; 82553; 84484; 85025; 87635; 93005; 93010; 96374; 96375; 99285; J1170; J2270; J2405

== ENCOUNTER → 2020-10-25 12:54 | Outpatient (CLI) | payer OTHER, SELFPAY ==
[2018-03-27 11:15] VITALS: BMI 42.0
--- NOTE | 2020-10-25 13:10 | DI.RAD.S_ITS ---
PROCEDURE: XR CERVICAL SPINE 2V OR 3V INDICATIONS: C SPINE INJURY TECHNIQUE: 3 view(s) of the cervical spine were acquired. COMPARISON: None. FINDINGS: Bones: No fracture. Mild levocurvature. Multilevel degenerative endplate sclerosis and spurring. Diffuse facet arthropathy. Moderate narrowing of the C5-C6 and C6-C7 disc spaces. Soft tissues: No prevertebral soft tissue swelling. IMPRESSION: Cervical spondylosis and facet arthropathy, most pronounced at C5-C6 and C6-C7. Mild levocurvature Dictated by: Rodolfo Salinas M.D. on 10/25/2020 at 14:18 Approved by: Rodolfo Salinas M.D. on 10/25/2020 at 14:20
== END ==
PROVIDERS: PCP Nurse Practitioner Family; Referring Provider Neurological Surgery; Visit Provider Neurological Surgery
DX: S12.501A Unspecified nondisplaced fracture of sixth cervical vertebra, initial encounter for closed fracture (principal); M47.812 Spondylosis without myelopathy or radiculopathy, cervical region; X58.XXXA Exposure to other specified factors, initial encounter
CPT/HCPCS: 72040

== ENCOUNTER → 2020-12-10 11:53 | Outpatient (CLI) | payer OTHER, SELFPAY ==
[2018-03-27 11:15] VITALS: BMI 42.0
--- NOTE | 2020-12-10 | DI.RAD.S_ITS ---
PROCEDURE: XR CERVICAL SPINE 4V OR 5V INDICATIONS: Unspecified nondisplaced fracture of sixth cervical vertebra TECHNIQUE: For views of the cervical spine were acquired. COMPARISON: [facility], CR, XR CERVICAL SPINE 2V OR 3V, 10/25/2020, 13:13. FINDINGS: Bones: No fractures or dislocations to the T1 level. No suspicious bony lesions. There is normal range of motion between flexion and extension, with preserved normal bony alignment. There is a moderate degree of C5-6 and C6-7 degenerative disc disease with small endplate osteophytes but during flexion and extension imaging subluxation across these areas is not present. Soft tissues: Prevertebral soft tissues are normal in thickness. IMPRESSION: No abnormal subluxation seen on flexion and extension imaging. Moderate degenerative disc disease at C5-6 and C6-7. Dictated by: Hank Rosen M.D. on 12/10/2020 at 14:15 Approved by: Hank Rosen M.D. on 12/10/2020 at 14:16
== END ==
PROVIDERS: PCP Nurse Practitioner Family; Referring Provider Neurological Surgery; Visit Provider Neurological Surgery
DX: S12.501D Unspecified nondisplaced fracture of sixth cervical vertebra, subsequent encounter for fracture with routine healing (principal); M50.322 Other cervical disc degeneration at C5-C6 level
CPT/HCPCS: 72050

== ENCOUNTER → 2020-12-15 08:49 | Outpatient (CLI) | payer OTHER, SELFPAY ==
[2018-03-27 11:15] VITALS: BMI 42.0
[2020-12-15 09:53] LABS: Hematocrit 43.7 % (36-46); Mean Corpuscular HGB Conc 32.1 % (30-36); Mean Corpuscular Hemoglobin 28.4 PG (26-34); Mean Corpuscular Volume 88.6 fL (80-100); Platelet Count 176 X10^3/uL (150-400); Red Blood Cell Count 4.93 X10^6/uL (4.0-5.2); Red Cell Distribution Width 14.5 % (11.6-14.8)
[2020-12-15 10:09] LABS: Alanine Aminotransferase 11 IU/L (<35); Albumin Globulin Ratio 1.2 (1.0-2.8); Alkaline Phosphatase 63 U/L (38-126); Aspartate Aminotransferase 20 IU/L (14-36); BUN Creatinine Ratio 22.8 (6-22); Bilirubin Total 1.3 mg/dL (0.2-1.3); Blood Urea Nitrogen 13 mg/dL (7-17); Carbon Dioxide 32 mmol/L (22-32); Chloride 105 mmol/L (98-107); Cholesterol 201 mg/dL (140-199); Estimated Glomerular Filt Rate > 60.0 mL/min (>60); Globulin 3.3 g/dL (1.7-4.1); Glucose 100 mg/dL (80-110); HDL Cholesterol 97 mg/dL (40-60); HEMOLYSIS < 15 (0-50); LDL Cholesterol Calculated 92 mg/dL (<100); Potassium 4.1 mmol/L (3.4-5.1); Sodium 139 mmol/L (137-145); Total Protein 7.3 g/dL (6.3-8.2); Triglycerides 61 mg/dL (35-150)
[2020-12-15 11:07] LABS: Vitamin D 25 Hydroxy (D3) 37.6 ng/mL (30.0-100.0)
[2020-12-15 11:22] LABS: Thyroid Stimulating Hormone 0.898 uIU/mL (0.47-4.68)
== END ==
PROVIDERS: PCP Nurse Practitioner Family; Referring Provider Nurse Practitioner Family; Visit Provider Nurse Practitioner Family
DX: E03.9 Hypothyroidism, unspecified (principal); Z00.00 Encounter for general adult medical examination without abnormal findings; E55.9 Vitamin D deficiency, unspecified; Z13.6 Encounter for screening for cardiovascular disorders
CPT/HCPCS: 36415; 80053; 80061; 82306; 84443; 85027

== ENCOUNTER → 2021-02-23 13:47 | Outpatient (CLI) | payer OTHER, SELFPAY ==
[2018-03-27 11:15] VITALS: BMI 42.0
[2021-02-23] MEDS: COVID-19 VACC #1, MRNA(MOD) 100 MCG/0.5 ML VIAL IM (13:57)
== END ==
PROVIDERS: PCP Nurse Practitioner Family; Visit Provider Internal Medicine
DX: Z23 Encounter for immunization (principal)
CPT/HCPCS: 0011A; 91301

== ENCOUNTER → 2021-03-23 13:45 | Outpatient (CLI) | payer OTHER, SELFPAY ==
[2018-03-27 11:15] VITALS: BMI 42.0
[2021-03-23] MEDS: COVID-19 VACC #2, MRNA(MOD) 100 MCG/0.5 ML VIAL IM (13:54)
== END ==
PROVIDERS: PCP Nurse Practitioner Family; Visit Provider Internal Medicine
DX: Z23 Encounter for immunization (principal)
CPT/HCPCS: 0012A; 91301

== ENCOUNTER → 2021-03-24 10:00 | Outpatient (CLI) | payer OTHER, SELFPAY ==
[2018-03-27 11:15] VITALS: BMI 42.0
[2021-03-24 11:13] LABS: Add Manual Diff / Slide Review NO; Basophils Absolute Auto 100 /uL (0-100); Eosinophils Absolute Auto 200 /uL (0-450); Eosinophils Percent Auto 3.7 % (2-4); Hematocrit 39.6 % (36-46); Hemoglobin 12.8 g/dL (12.0-16.0); Lymphocytes Absolute Auto 1800 /uL (1100-4500); Mean Corpuscular HGB Conc 32.3 % (30-36); Mean Corpuscular Hemoglobin 28.2 PG (26-34); Mean Corpuscular Volume 87.5 fL (80-100); Monocytes Absolute Auto 500 /uL (0-900); Monocytes Percent Auto 7.6 % (3-14); Neutrophils Absolute Auto 4000 /uL (1500-7000); Neutrophils Percent Auto 60.7 % (50-75); Platelet Count 197 X10^3/uL (150-400); Red Blood Cell Count 4.52 X10^6/uL (4.0-5.2); Red Cell Distribution Width 13.7 % (11.6-14.8); White Blood Cell Count 6.6 X10^3/uL (4.5-11.0)
[2021-03-24 11:36] LABS: Alanine Aminotransferase 12 IU/L (<35); Albumin 3.8 g/dL (3.5-5.0); Albumin Globulin Ratio 1.2 (1.0-2.8); Alkaline Phosphatase 66 U/L (38-126); Aspartate Aminotransferase 23 IU/L (14-36); BUN Creatinine Ratio 26.8 (6-22); Blood Urea Nitrogen 15 mg/dL (7-17); Calcium 9.2 mg/dL (8.4-10.2); Carbon Dioxide 29 mmol/L (22-32); Chloride 105 mmol/L (98-107); Cholesterol 186 mg/dL (140-199); Estimated Glomerular Filt Rate > 60.0 mL/min (>60); Globulin 3.1 g/dL (1.7-4.1); Glucose 101 mg/dL (80-110); HDL Cholesterol 97 mg/dL (40-60); HEMOLYSIS < 15 (0-50); LDL Cholesterol Calculated 79 mg/dL (<100); Sodium 140 mmol/L (137-145); Total Protein 6.9 g/dL (6.3-8.2); Triglycerides 48 mg/dL (35-150)
[2021-03-24 11:49] LABS: Vitamin D 25 Hydroxy (D3) 47.8 ng/mL (30.0-100.0)
[2021-03-24 12:03] LABS: Thyroid Stimulating Hormone 0.613 uIU/mL (0.47-4.68)
[2021-03-24 12:08] LABS: Free T4, Direct Thyroxine 1.26 ng/dL (0.78-2.19)
== END ==
PROVIDERS: PCP Nurse Practitioner Family; Referring Provider Nurse Practitioner Family; Visit Provider Nurse Practitioner Family
DX: E55.9 Vitamin D deficiency, unspecified (principal); E03.9 Hypothyroidism, unspecified
CPT/HCPCS: 36415; 80053; 80061; 82306; 84439; 84443; 85025

== ENCOUNTER → 2021-08-17 09:12 | Outpatient (CLI) | payer MEDICARE, SELFPAY ==
[2018-03-27 11:15] VITALS: BMI 42.0
[2021-08-17 10:00] LABS: Hematocrit 40.1 % (36-46); Hemoglobin 12.8 g/dL (12.0-16.0); Mean Corpuscular HGB Conc 31.8 % (30-36); Mean Corpuscular Hemoglobin 26.2 PG (26-34); Mean Corpuscular Volume 82.2 fL (80-100); Platelet Count 212 X10^3/uL (150-400); Red Blood Cell Count 4.88 X10^6/uL (4.0-5.2); Red Cell Distribution Width 16.2 % (11.6-14.8); White Blood Cell Count 6.5 X10^3/uL (4.5-11.0)
[2021-08-17 10:17] LABS: Alanine Aminotransferase 19 IU/L (<35); Albumin 4.2 g/dL (3.5-5.0); Albumin Globulin Ratio 1.3 (1.0-2.8); Alkaline Phosphatase 68 U/L (38-126); Aspartate Aminotransferase 28 IU/L (14-36); BUN Creatinine Ratio 28.8 (6-22); Bilirubin Total 0.5 mg/dL (0.2-1.3); Blood Urea Nitrogen 15 mg/dL (7-17); Calcium 9.6 mg/dL (8.4-10.2); Carbon Dioxide 30 mmol/L (22-32); Chloride 106 mmol/L (98-107); Estimated Glomerular Filt Rate > 60.0 mL/min (>60); Globulin 3.2 g/dL (1.7-4.1); Glucose 101 mg/dL (80-110); HEMOLYSIS < 15 (0-50); Potassium 4.6 mmol/L (3.4-5.1); Sodium 141 mmol/L (137-145); Total Protein 7.4 g/dL (6.3-8.2)
[2021-08-17 10:32] LABS: Free T4, Direct Thyroxine 1.36 ng/dL (0.78-2.19)
[2021-08-17 10:46] LABS: Thyroid Stimulating Hormone 0.825 uIU/mL (0.47-4.68)
== END ==
PROVIDERS: PCP Nurse Practitioner Family; Referring Provider Nurse Practitioner Family; Visit Provider Nurse Practitioner Family
DX: E03.9 Hypothyroidism, unspecified (principal); E55.9 Vitamin D deficiency, unspecified
CPT/HCPCS: 36415; 80053; 82306; 84439; 84443; 85027

== ENCOUNTER → 2021-09-08 09:09 | Outpatient (CLI) | payer MEDICARE, SELFPAY ==
[2018-03-27 11:15] VITALS: BMI 42.0
--- NOTE | 2021-09-08 09:11 | DI.US.S_ITS ---
PROCEDURE: US ABD AORTA ANEURYSM SCREEN INDICATIONS: SCREENING. FORMER SMOKER. TECHNIQUE: Real time scanning was performed of the aorta and iliac arteries, with image documentation. COMPARISON: None. FINDINGS: Aorta: Proximal aortic diameter measures 2.7 cm. Mid-aorta measures 2.3 cm. Distal aortic diameter is 2.2 cm. Iliac arteries: Right common iliac artery measures 1.3 cm. Left common iliac artery measures 1.5 cm. IMPRESSION: Negative for aneurysm. Dictated by: Keo Pittman M.D. on 09/08/2021 at 11:53 Approved by: Keo Pittman M.D. on 09/08/2021 at 11:53
--- NOTE | 2021-09-08 09:11 | DI.RAD.S_ITS ---
PROCEDURE: XR DEXA AXIAL SKELETON INDICATIONS: screening COMPARISON: None. FINDINGS: This blank DEXA report has been sent in error by the PACS system. The correct and complete report will be forthcoming in 1-2 days. Thank you for your patience and understanding. Dictated by: aVnessa Calvillo MD, PhD on 09/08/2021 at 12:29 Approved by: Vanessa Calvillo MD, PhD on 09/08/2021 at 12:29
== END ==
PROVIDERS: PCP Nurse Practitioner Family; Referring Provider Nurse Practitioner Family; Visit Provider Nurse Practitioner Family
DX: Z78.0 Asymptomatic menopausal state (principal); Z13.6 Encounter for screening for cardiovascular disorders; Z87.891 Personal history of nicotine dependence
CPT/HCPCS: 76706; 77080

== ENCOUNTER → 2021-10-01 09:24 | Outpatient (CLI) | payer MEDICARE, SELFPAY ==
[2018-03-27 11:15] VITALS: BMI 42.0
--- NOTE | 2021-10-01 09:25 | DI.MG.S_ITS ---
BILATERAL DIGITAL SCREENING MAMMOGRAM 3D/2D WITH CAD: 10/01/2021 CLINICAL: Routine screening. Family history of breast cancer. Comparison is made to exams dated: 09/18/2020 mammogram, 08/17/2018 mammogram, and 03/28/2016 mammogram - [facility]. There are scattered fibroglandular elements in both breasts. Current study was also evaluated with a Computer Aided Detection (CAD) system. No significant masses, calcifications, or other findings are seen in either breast. There has been no significant interval change. IMPRESSION: NEGATIVE There is no mammographic evidence of malignancy. A 1 year screening mammogram is recommended. This exam was interpreted at Station ID: [id number]. NOTE: For mammograms, a report in lay terms will be sent to the patient. Approximately 15% of breast malignancies will not be visualized mammographically. In the management of a palpable breast mass, a negative mammogram must not discourage biopsy of a clinically suspicious lesion. Electronically Signed By: Madiha melendrez/asaf:10/03/2021 10:32:05 letter sent: Normal Exam ACR BI-RADS Category 1: Negative [id number]
== END ==
PROVIDERS: PCP Nurse Practitioner Family; Referring Provider Nurse Practitioner Family; Visit Provider Nurse Practitioner Family
DX: Z12.31 Encounter for screening mammogram for malignant neoplasm of breast (principal); Z80.3 Family history of malignant neoplasm of breast
CPT/HCPCS: 77063; 77067

== ENCOUNTER → 2022-05-30 15:03 | Outpatient (CLI) | payer MEDICARE, SELFPAY ==
[2018-03-27 11:15] VITALS: BMI 42.0
--- NOTE | 2022-05-30 15:04 | DI.RAD.S_ITS ---
PROCEDURE: XR FOOT RT MIN 3V INDICATIONS: right heel pain TECHNIQUE: 3 views of the foot were acquired. COMPARISON: None. FINDINGS: Bones: No fractures or dislocations. No suspicious bony lesions. There is a moderate-sized plantar calcaneal spur. There is fragmentation of Achilles calcaneal spurs. Soft tissues: No tibiotalar joint effusion. Soft tissue thickening is present at the insertion of the Achilles tendon. IMPRESSION: Soft tissue thickening at the insertion of the Achilles tendon suspicious for tendinitis. Dictated by: Morelia Newman M.D. on 05/30/2022 at 17:08 Approved by: Morelia Newman M.D. on 05/30/2022 at 17:08
== END ==
PROVIDERS: PCP Family Medicine; Referring Provider Family Medicine; Visit Provider Family Medicine
DX: M79.671 Pain in right foot (principal)
CPT/HCPCS: 73630

== ENCOUNTER → 2022-08-24 09:42 | Outpatient (CLI) | payer MEDICARE, SELFPAY ==
[2018-03-27 11:15] VITALS: BMI 42.0
[2022-08-24 10:30] LABS: Add Manual Diff / Slide Review NO; Basophils Absolute Auto 100 /uL (0-100); Basophils Percent Auto 1.4 % (0-2); Eosinophils Absolute Auto 300 /uL (0-450); Eosinophils Percent Auto 4.9 % (2-4); Hematocrit 40.3 % (36-46); Hemoglobin 13.3 g/dL (12.0-16.0); Lymphocytes Absolute Auto 1300 /uL (1100-4500); Lymphocytes Percent Auto 25.8 % (25-40); Mean Corpuscular HGB Conc 32.9 % (30-36); Mean Corpuscular Hemoglobin 28.9 PG (26-34); Mean Corpuscular Volume 87.9 fL (80-100); Monocytes Absolute Auto 400 /uL (0-900); Neutrophils Absolute Auto 3100 /uL (1500-7000); Neutrophils Percent Auto 59.9 % (50-75); Platelet Count 185 X10^3/uL (150-400); Red Blood Cell Count 4.59 X10^6/uL (4.0-5.2); White Blood Cell Count 5.1 X10^3/uL (4.5-11.0)
[2022-08-24 11:10] LABS: Alanine Aminotransferase 15 IU/L (<35); Albumin 3.9 g/dL (3.5-5.0); Albumin Globulin Ratio 1.2 (1.0-2.8); Alkaline Phosphatase 62 U/L (38-126); Aspartate Aminotransferase 24 IU/L (14-36); BUN Creatinine Ratio 28.8 (6-22); Bilirubin Total 1.3 mg/dL (0.2-1.3); Blood Urea Nitrogen 17 mg/dL (7-17); Calcium 8.7 mg/dL (8.4-10.2); Carbon Dioxide 28 mmol/L (22-32); Chloride 105 mmol/L (98-107); Cholesterol 180 mg/dL (140-199); Estimated Glomerular Filt Rate > 60 mL/min (>60); Globulin 3.2 g/dL (1.7-4.1); Glucose 96 mg/dL (80-110); HDL Cholesterol 86 mg/dL (40-60); HEMOLYSIS < 15 (0-50); LDL Cholesterol Calculated 84 mg/dL (<100); Potassium 4.2 mmol/L (3.4-5.1); Sodium 140 mmol/L (137-145); Total Protein 7.1 g/dL (6.3-8.2); Triglycerides 49 mg/dL (35-150)
[2022-08-24 11:13] LABS: Vitamin D 25 Hydroxy (D3) 34.5 ng/mL (30.0-100.0)
[2022-08-24 11:29] LABS: TSH w/ Reflex to FT4 0.53 uIU/mL (0.47-4.68)
== END ==
PROVIDERS: PCP Family Medicine; Referring Provider Family Medicine; Visit Provider Family Medicine
DX: E03.9 Hypothyroidism, unspecified (principal); E55.9 Vitamin D deficiency, unspecified; E78.89 Other lipoprotein metabolism disorders; F32.9 Major depressive disorder, single episode, unspecified
CPT/HCPCS: 36415; 80053; 80061; 82306; 84439; 84443; 85025

== ENCOUNTER 2022-09-08 17:33 | Emergency (ER) | payer MEDICARE, SELFPAY ==
[2018-03-27 11:15] VITALS: BMI 42.0
--- NOTE | 2022-09-08 18:08 | ED_ITS ---
HPI - Extremity Problem <Fred Altamirano PA-C - Last Filed: 09/08/22 18:46> General Chief complaint: Extremity Problem,Nontraumatic Stated complaint: Left achilles tendon Time Seen by Provider: 09/08/22 17:43 Source: patient Mode of arrival: Family Vehicle History of Present Illness HPI Narrative: Patient is a 67-year-old female who presents to the emergency room today with complaint of left-sided pain soreness in the area started today around 4:20 p.m. as she was walking up the stairs and heard a pop as she was applying pressure to the left foot and ankle areas. Now unable to dorsiflex foot. Also admits to having soreness in the left Achilles area for about 3 weeks prior to this injury. Denies any type of fall associated with this injury. Related Data Home Medications Medication Instructions Recorded Confirmed B- complex PO 08/17/21 08/21/22 cholecalciferol (vitamin D3) 25 1,000 unit PO DAILY 05/30/22 08/21/22 mcg (1,000 unit) capsule Previous Rx's Medication Instructions Recorded diclofenac sodium 1 % topical gel 2 g topical QID #100 grams 03/29/21 fluoxetine 60 mg tablet 60 mg PO DAILY #90 tabs 04/17/22 meloxicam 15 mg tablet See Rx Instructions .Route 05/01/22 .COMPLEX #90 tabs levothyroxine 88 mcg tablet 88 mcg PO DAILY #90 tabs 05/11/22 trazodone 50 mg tablet See Rx Instructions .Route 09/04/22 .COMPLEX #90 tabs Allergies Allergy/AdvReac Type Severity Reaction Status Date / Time oxytetracycline Allergy Unknown Rash Verified 09/08/22 18:04 [From Terramycin] Penicillins Allergy Unknown Rash Verified 09/08/22 18:04 codeine AdvReac Intermediate Vomiting Verified 09/08/22 18:04 Review of Systems <Fred Altamirano PA-C - Last Filed: 09/08/22 18:46> Review of Systems Narrative: R.O.S.: General: No fever, chills or fatigue. Cardiovascular: No chest pain or palpitations Respiratory: No S.O.B. HEENT: No congestion, ear pain, rhinorrhea, sore throat or tinnitus Gastrointestinal: No nausea or vomiting : No urinary concerns Skin: No rash or associated abnormalities Musculoskeletal: Left Achilles pain? Neurological: Awake, alert and in not apparent distress. No Headaches, changes in vision or other related neurological concerns. Patient History <Fred Altamirano PA-C - Last Filed: 09/08/22 18:46> Medical History Ankle fracture, left Arthritis At average risk for colon cancer Bilateral hip pain Depression Elevated HDL Heartburn History of urinary frequency Hypothyroidism Knee pain, bilateral Menopause Pain of right heel Pneumonia Screening for malignant neoplasm of breast Screening for malignant neoplasm of colon Urinary urgency Vision impairment Vitamin D deficiency Surgical History H/O knee surgery H/O knee surgery Social History household members: spouse Smoking Status: Former smoker alcohol intake: current Smoking Status: Former smoker alcohol intake frequency: 0-2 drinks per day Substance Use Type: does not use Exam <Fred Altamirano PA-C - Last Filed: 09/08/22 18:46> Narrative Exam Narrative: Physical Exam: ? General: normal appearance, well developed, well nourished, alert, and awake. Not in acute distress. ? Head: Normocephalic, no lesions. Chest: Lungs CTAB, no rales, rhonchi or wheezes. ?? Heart: RRR, no murmurs, rubs or gallops. Eyes: PERRLA, EOM's full, conjunctivae clear. ? Neuro: Physiological, no localizing findings, CN3-12 intact. ?? Extremities/musculoskeletal: Patient has complaint of pain with minimal swelling or tenderness to palpation at the left inferior Achilles area. The patient is also unable to fully dorsiflex the left foot. Left lower extremity has intact sensation to touch and is vascularly intact. ? Skin: Normal, no rashes, no lesions noted. ?? PSYCHIATRIC: The mood is good, no blunted affect. Speech is clear. Thought process is linear, thought content is appropriate. The voice is without significant inflection. Gastrointestinal: Soft; NT; ND; Pos BS with Neg. rebound tenderness. No scars or major deformities noted on Visual Inspection. Initial Vital Signs Initial Vital Signs: Vital Signs Pulse Rate 80 09/08/22 18:15 Respiratory Rate 16 09/08/22 18:15 Blood Pressure 156/78 H 09/08/22 18:15 Pulse Oximetry 98 09/08/22 18:15 Oxygen Delivery Method 09/08/22 18:15 <Elli Nicole DO - Last Filed: 09/13/22 07:17> Initial Vital Signs Initial Vital Signs: Vital Signs Pulse Rate 80 09/08/22 18:15 Respiratory Rate 16 09/08/22 18:15 Blood Pressure 156/78 H 09/08/22 18:15 Pulse Oximetry 98 09/08/22 18:15 Oxygen Delivery Method 09/08/22 18:15 MDM - Extremity (Nontraumatic) <Fred Altamirano PA-C - Last Filed: 09/08/22 18:46> MDM Narrative Medical decision making narrative: Well-appearing with a classic case of a torn Achilles. Patient's pain was managed and patient placed in a splint to immobilize the left lower extremity and plantar flexion. Patient also issued crutches and instructed on use. Patient also referred to ortho. Discharge Plan Departure Patient Disposition: Home Clinical Impression: Achilles tendon rupture Instructions: DI for Achilles Tendon Rupture Activity Restrictions/Additional Instructions: *You have been diagnosed with rupture of your left Achilles tendon. Your left lower extremity has been placed in a splint and I suggest you wear the splint as instructed and to follow with Orthopedics. I also ordered crutches help your mobilization. Note: You are to wear the splint as ordered and to bear no weight on that lower extremity before following up with your orthopedic pr ovider. The orthopedic provider is Dr. Carmona and their phone number is [phone]. [ ] *What to do: *Please continue to take your regular medications as directed. [ ] New medication prescriptions sent to your pharmacy: [ ] [ ] New medication written as a paper prescription [x] No new medications given *Please follow up with your primary care provider in 2-3 days, call for an appointment. Let them know you were seen in the Emergency Department and that we ask that you be seen in follow up. We will electronically transmit a record of today's note if your PCP is in our system *If you do not have a primary care provider please contact the [facility] Resource line at [phone]. They will ask some questions about your medical history and help get you set up with a doctor in the community. *Return to Emergency Department if you should have any new, worsening or concerning symptoms, such as [fever greater than 101 F, shaking chills, worsening pain, persistent vomiting or other bothersome symptoms] Prescriptions: No Action fluoxetine 60 mg tablet 60 mg PO DAILY Qty: 90 1RF meloxicam 15 mg tablet See Rx Instructions .ROUTE .COMPLEX Qty: 90 1RF Dose Instruction: TAKE 1 TABLET BY MOUTH DAILY WITH FOOD NEEDED FOR ARTHRITIS PAIN. MAY ALSO TAKE WITH OMEPRAZOLE Rx Instructions: TAKE 1 TABLET BY MOUTH DAILY WITH FOOD NEEDED FOR ARTHRITIS PAIN. MAY ALSO TAKE WITH OMEPRAZOLE levothyroxine 88 mcg tablet 88 mcg PO DAILY Qty: 90 2RF trazodone 50 mg tablet See Rx Instructions .ROUTE .COMPLEX Qty: 90 3RF Dose Instruction: TAKE 1 TABLET BY MOUTH AT BEDTIME Rx Instructions: TAKE 1 TABLET BY MOUTH AT BEDTIME cholecalciferol (vitamin D3) 25 mcg (1,000 unit) capsule 1,000 unit PO DAILY diclofenac sodium 1 % gel 2 g topical QID Qty: 100 0RF Rx Instructions: apply to hips B- complex PO Referrals: Alex Michel MD [Primary Care Provider] - Killian Carmona MD [Physician] - Visit Report Forms: Patient Portal/API <Elli Nicole DO - Last Filed: 09/13/22 07:17> [facility] ED Attending Lizeth Attestation: I was immediately available in the department for consultation. Documentation has been reviewed. I agree with assessment and plan.
[2022-09-08 18:15] VITALS: BP 156/78; PULSE 80; RESP 16; O2SAT 98
== END 2022-09-08 19:22 | disposition home or self-care (01) ==
PROVIDERS: Emergency Provider Physician Assistant; PCP Family Medicine
DX: S86.012A Strain of left Achilles tendon, initial encounter (principal); X50.1XXA Overexertion from prolonged static or awkward postures, initial encounter
CPT/HCPCS: 29515; 99282; 99283

== ENCOUNTER → 2022-10-21 13:27 | Outpatient (CLI) | payer MEDICARE, SELFPAY ==
[2018-03-27 11:15] VITALS: BMI 42.0
--- NOTE | 2022-10-21 13:28 | DI.MG.S_ITS ---
BILATERAL DIGITAL SCREENING MAMMOGRAM 3D/2D WITH CAD: 10/21/2022 CLINICAL: Routine screening. Family history of breast cancer. Comparison is made to exams dated: 10/01/2021 mammogram, 09/18/2020 mammogram, 08/17/2018 mammogram, and 03/28/2016 mammogram - [facility]. There are scattered areas of fibroglandular density in both breasts (category b / 25%-50% glandular tissue). Current study was also evaluated with a Computer Aided Detection (CAD) system. No significant masses, calcifications, or other findings are seen in either breast. There has been no significant interval change. IMPRESSION: NEGATIVE There is no mammographic evidence of malignancy. A 1 year screening mammogram is recommended. Based on the Tyrer Cuzick model (a risk assessment model) the patient's lifetime risk is 7.5% and her 10 year risk is 3.8%. According to the ACR, ACS, and NCCN guidelines, an annual breast MRI exam along with mammogram is recommended if the patient's lifetime risk is 20% or greater. This exam was interpreted at Station ID: [id number]. NOTE: For mammograms, a report in lay terms will be sent to the patient. Approximately 15% of breast malignancies will not be visualized mammographically. In the management of a palpable breast mass, a negative mammogram must not discourage biopsy of a clinically suspicious lesion. Electronically Signed By: Ulisses campos/asaf:10/23/2022 10:48:10 letter sent: Normal Exam ACR BI-RADS Category 1: Negative 3341F
== END ==
PROVIDERS: PCP Family Medicine; Referring Provider Family Medicine; Visit Provider Family Medicine
DX: Z12.31 Encounter for screening mammogram for malignant neoplasm of breast (principal); Z80.3 Family history of malignant neoplasm of breast
CPT/HCPCS: 77063; 77067

== ENCOUNTER → 2023-03-29 15:42 | Outpatient (CLI) | payer MEDICARE, SELFPAY ==
[2018-03-27 11:15] VITALS: BMI 42.0
--- NOTE | 2023-03-29 15:44 | DI.RAD.S_ITS ---
PROCEDURE: XR HIP W PEL IF DONE RT 2V INDICATIONS: chronic right knee, right hip and low back pain TECHNIQUE: AP pelvis with lateral view(s) of the right hip(s). COMPARISON: [facility], , XR HIP W PEL IF DONE MAXI 3TO4V, 03/11/2019, 12:09. FINDINGS: Bones: No fractures or dislocations. Severe degenerative changes of both hips, more severe on the left. Pelvic ring appears intact. No suspicious bony lesions. Soft tissues: The visualized bowel gas pattern is normal. No suspicious soft tissue calcifications. IMPRESSION: 1. Severe degenerative changes of both hips consistent with osteoarthritis. 2. No acute abnormality. Dictated by: John Lindsey M.D. on 03/29/2023 at 17:01 Approved by: John Lindsey M.D. on 03/29/2023 at 17:20
--- NOTE | 2023-03-29 15:44 | DI.RAD.S_ITS ---
PROCEDURE: XR LUMBAR SPINE 2-3V INDICATIONS: chronic right knee, right hip and low back pain TECHNIQUE: 3 views of the lumbar spine were acquired. COMPARISON: None. FINDINGS: Bones: 5 [id number] vertebrae are present. There is normal bony alignment. L2-3 has disc space narrowing, endplate degenerative changes, osteophytes, and sclerosis of the anterior disc space. L4-5 demonstrates facet arthropathy and grade 1 anterolisthesis. No vertebral body compression fractures. No suspicious bony lesions. Soft tissues: Overlying bowel gas pattern is normal. No suspicious soft tissue calcifications. IMPRESSION: 1. Degenerative disc disease of L2-3. 2. Facet arthrosis at L4-5 with grade 1 anterolisthesis. 3. No acute abnormality. Dictated by: John Lindsey M.D. on 03/29/2023 at 16:58 Approved by: John Lindsey M.D. on 03/29/2023 at 17:01
--- NOTE | 2023-03-29 15:44 | DI.RAD.S_ITS ---
PROCEDURE: XR KNEE RT 3V INDICATIONS: chronic right knee, right hip and low back pain TECHNIQUE: 3 views of the knee were acquired. COMPARISON: [facility], [place], XR KNEE LT 1TO2V, 03/27/2018, 10:31. FINDINGS: Bones: No fractures or dislocations. No suspicious bony lesions. There are tricompartmental degenerative changes with lateral joint space narrowing. Tricompartmental osteophytes. Soft tissues: No joint effusion. No suspicious soft tissue calcifications. IMPRESSION: Tricompartmental degenerative changes consistent with osteoarthritis. Dictated by: John Lindsey M.D. on 03/29/2023 at 17:20 Approved by: John Lindsey M.D. on 03/29/2023 at 17:22
== END ==
PROVIDERS: PCP Family Medicine; Referring Provider Family Medicine; Visit Provider Family Medicine
DX: M47.816 Spondylosis without myelopathy or radiculopathy, lumbar region (principal); M51.36 Other intervertebral disc degeneration, lumbar region; M43.16 Spondylolisthesis, lumbar region; M25.551 Pain in right hip; M25.552 Pain in left hip; M25.561 Pain in right knee; M54.50 Low back pain, unspecified; E03.9 Hypothyroidism, unspecified
CPT/HCPCS: 72100; 73502; 73562

== ENCOUNTER → 2023-09-14 09:02 | Outpatient (CLI) | payer MEDICARE, SELFPAY ==
[2018-03-27 11:15] VITALS: BMI 42.0
[2023-09-14 11:48] LABS: TSH w/ Reflex to FT4 0.56 uIU/mL (0.47-4.68)
== END ==
PROVIDERS: PCP Family Medicine; Referring Provider Registered Nurse Diabetes Educator; Visit Provider Registered Nurse Diabetes Educator
DX: E03.9 Hypothyroidism, unspecified (principal)
CPT/HCPCS: 36415; 84443

== ENCOUNTER → 2023-09-18 08:44 | Outpatient (CLI) | payer MEDICARE, SELFPAY ==
[2018-03-27 11:15] VITALS: BMI 42.0
[2023-09-18 10:22] LABS: Add Manual Diff / Slide Review NO; Basophils Absolute Auto 100 /uL (0-100); Basophils Percent Auto 1.3 % (0-2); Eosinophils Absolute Auto 200 /uL (0-450); Eosinophils Percent Auto 3.1 % (2-4); Hematocrit 43.3 % (36-46); Hemoglobin 14.3 g/dL (12.0-16.0); Lymphocytes Absolute Auto 1600 /uL (1100-4500); Lymphocytes Percent Auto 27.6 % (25-40); Mean Corpuscular HGB Conc 33.1 % (30-36); Mean Corpuscular Hemoglobin 29.5 PG (26-34); Mean Corpuscular Volume 89.1 fL (80-100); Monocytes Absolute Auto 400 /uL (0-900); Monocytes Percent Auto 7.6 % (3-14); Neutrophils Absolute Auto 3400 /uL (1500-7000); Neutrophils Percent Auto 60.4 % (50-75); Platelet Count 180 X10^3/uL (150-400); Red Blood Cell Count 4.86 X10^6/uL (4.0-5.2); Red Cell Distribution Width 13.6 % (11.6-14.8); White Blood Cell Count 5.7 X10^3/uL (4.5-11.0)
[2023-09-18 10:46] LABS: Alanine Aminotransferase 17 IU/L (<35); Albumin 4.3 g/dL (3.5-5.0); Albumin Globulin Ratio 1.4 (1.0-2.8); Alkaline Phosphatase 56 U/L (38-126); Aspartate Aminotransferase 26 IU/L (14-36); BUN Creatinine Ratio 28.1 (6-22); Bilirubin Total 1.3 mg/dL (0.2-1.3); Blood Urea Nitrogen 16 mg/dL (7-17); Calcium 9.5 mg/dL (8.4-10.2); Carbon Dioxide 31 mmol/L (22-32); Chloride 102 mmol/L (98-107); Cholesterol 215 mg/dL (140-199); Estimated Glomerular Filt Rate > 60 mL/min (>60); Globulin 3.1 g/dL (1.7-4.1); Glucose 98 mg/dL (80-110); HEMOLYSIS < 15 (0-50); Potassium 4.4 mmol/L (3.4-5.1); Sodium 139 mmol/L (137-145); Total Protein 7.4 g/dL (6.3-8.2); Triglycerides 53 mg/dL (35-150)
[2023-09-18 10:47] LABS: Creatinine Urine Random 197.4 mg/dL
[2023-09-18 10:49] LABS: Microalbumin Urine Random 1.2 mg/dL (0-1.6)
[2023-09-18 10:54] LABS: HDL Cholesterol 112 mg/dL (40-60); LDL Cholesterol Calculated 92 mg/dL (<100)
[2023-09-18 11:37] LABS: Hep C Virus Ab w/Reflex Quant NEGATIVE s/c (NEGATIVE)
== END ==
PROVIDERS: PCP Family Medicine; Referring Provider Family Medicine; Visit Provider Family Medicine
DX: E78.89 Other lipoprotein metabolism disorders (principal); E55.9 Vitamin D deficiency, unspecified; Z78.0 Asymptomatic menopausal state; E03.9 Hypothyroidism, unspecified
CPT/HCPCS: 36415; 80053; 80061; 82043; 82570; 85025; 86803

== ENCOUNTER → 2023-11-06 14:46 | Outpatient (CLI) | payer MEDICARE, SELFPAY ==
[2018-03-27 11:15] VITALS: BMI 42.0
--- NOTE | 2023-11-06 14:47 | DI.MG.S_ITS ---
BILATERAL DIGITAL SCREENING MAMMOGRAM 3D/2D WITH CAD: 11/06/2023 CLINICAL: Routine screening. Family history of breast cancer. Comparison is made to exams dated: 10/21/2022 mammogram, 10/01/2021 mammogram, and 09/18/2020 mammogram - [facility]. There are scattered areas of fibroglandular density in both breasts (category b / 25%-50% glandular tissue). Current study was also evaluated with a Computer Aided Detection (CAD) system. No significant masses, calcifications, or other findings are seen in either breast. There has been no significant interval change. IMPRESSION: NEGATIVE There is no mammographic evidence of malignancy. A 1 year screening mammogram is recommended. Based on the Tyrer Cuzick model (a risk assessment model) the patient's lifetime risk is 7.1% and her 10 year risk is 3.7%. According to the ACR, ACS, and NCCN guidelines, an annual breast MRI exam along with mammogram is recommended if the patient's lifetime risk is 20% or greater. This exam was interpreted at Station ID: [id number]. NOTE: For mammograms, a report in lay terms will be sent to the patient. Approximately 15% of breast malignancies will not be visualized mammographically. In the management of a palpable breast mass, a negative mammogram must not discourage biopsy of a clinically suspicious lesion. Electronically Signed By: Madiha melendrez/asaf:11/06/2023 16:45:56 letter sent: Normal Exam ACR BI-RADS Category 1: Negative 3341F
== END ==
PROVIDERS: PCP Family Medicine; Referring Provider Family Medicine; Visit Provider Family Medicine
DX: Z12.31 Encounter for screening mammogram for malignant neoplasm of breast (principal); Z80.3 Family history of malignant neoplasm of breast
CPT/HCPCS: 77063; 77067

== ENCOUNTER → 2024-08-01 08:57 | Outpatient (CLI) | payer MEDICARE, SELFPAY ==
[2018-03-27 11:15] VITALS: BMI 42.0
[2024-08-01 10:09] LABS: Add Manual Diff / Slide Review NO; Basophils Absolute Auto 100 /uL (0-100); Basophils Percent Auto 1.8 % (0-2); Eosinophils Absolute Auto 300 /uL (0-450); Eosinophils Percent Auto 5.3 % (2-4); Hematocrit 37.2 % (36-46); Hemoglobin 12.2 g/dL (12.0-16.0); Lymphocytes Absolute Auto 1500 /uL (1100-4500); Lymphocytes Percent Auto 28.6 % (25-40); Mean Corpuscular HGB Conc 32.7 % (30-36); Mean Corpuscular Hemoglobin 27.4 PG (26-34); Mean Corpuscular Volume 83.8 fL (80-100); Monocytes Absolute Auto 400 /uL (0-900); Monocytes Percent Auto 7.3 % (3-14); Neutrophils Absolute Auto 3000 /uL (1500-7000); Platelet Count 226 X10^3/uL (150-400); Red Blood Cell Count 4.44 X10^6/uL (4.0-5.2); Red Cell Distribution Width 14.5 % (11.6-14.8); White Blood Cell Count 5.2 X10^3/uL (4.5-11.0)
[2024-08-01 10:21] LABS: Hemoglobin A1C% w Est Avg Glu 5.4 % (4.0-6.0)
[2024-08-01 10:24] LABS: Albumin 3.9 g/dL (3.5-5.0); BUN Creatinine Ratio 34.9 (6-22); Blood Urea Nitrogen 22 mg/dL (7-17); Calcium 9.4 mg/dL (8.4-10.2); Carbon Dioxide 29 mmol/L (22-32); Chloride 103 mmol/L (98-107); Estimated Glomerular Filt Rate > 60 mL/min (>60); Glucose 107 mg/dL (80-110); HEMOLYSIS < 15 (0-50); Potassium 4.6 mmol/L (3.4-5.1); Sodium 137 mmol/L (137-145)
[2024-08-01 10:40] LABS: Vitamin D 25 Hydroxy (D3) 38.6 ng/mL (30.0-100.0)
[2024-08-01 10:41] LABS: Prealbumin 18.8 mg/dL (17.6-36.0)
== END ==
LOC: LAB 08:58
PROVIDERS: PCP Family Medicine; Referring Provider Orthopaedic Surgery Adult Reconstructive Orthopaedic Surgery; Visit Provider Orthopaedic Surgery Adult Reconstructive Orthopaedic Surgery
DX: Z01.812 Encounter for preprocedural laboratory examination (principal); R77.0 Abnormality of albumin; R73.9 Hyperglycemia, unspecified; E55.9 Vitamin D deficiency, unspecified
CPT/HCPCS: 36415; 80048; 82040; 82306; 83036; 84134; 85025

== ENCOUNTER 2024-10-17 06:15 | Day surgery (SDC) | payer MEDICARE, SELFPAY ==
[2018-03-27 11:15] VITALS: BMI 42.0
[2024-10-08 09:55] VITALS: BMI 34.6
[2024-10-17] VITALS (14 sets, daily range): BP systolic 86–139; BP diastolic 44–78; PULSE 55–92; RESP 12–99; TEMP 36.2–37.2; O2SAT 14–100; BMI 35.9
--- NOTE | 2024-10-17 06:38 | DI.RAD.S_ITS ---
PROCEDURE: XR HIP W PEL IF DONE LT 2V INDICATIONS: netta TECHNIQUE: Multiple intraoperative views during left hip arthroplasty. COMPARISON: [facility], [facility], XR HIP W PEL IF DONE RT 2V, 03/29/2023, 15:48. [facility], [facility], XR HIP W PEL IF DONE MAXI 3TO4V, 03/11/2019, 12:09. FINDINGS: Bones: Multiple intraoperative views during left hip arthroplasty demonstrates appropriately position hardware. IMPRESSION: Multiple intraoperative views during left hip arthroplasty demonstrates appropriate position hardware. Dictated by: Raúl Crow M.D. on 10/17/2024 at 11:59 Approved by: Raúl Crow M.D. on 10/17/2024 at 12:00
[2024-10-17] MEDS: MELOXICAM 7.5 MG TABLET PO (06:48)
[2024-10-17] MEDS: ACETAMINOPHEN 325 MG TABLET 975 MG PO (06:48)
[2024-10-17] MEDS: LACTATED RINGERS 1,000 ML 42 ML IV ×2 (06:49→09:38)
[2024-10-17] MEDS: SCOPOLAMINE 1 PATCH TOP (07:06)
--- NOTE | 2024-10-17 07:45 | PM.PREOP ---
Pre-operative Note Interval Note History & Physical reviewed/Exam performed by Physician: Yes Changes to H&P: No
[2024-10-17] MEDS: CEFAZOLIN 2 GM/100 ML PREMIX 100 ML IV ×3 (07:58→23:35)
[2024-10-17] MEDS: TRANEXAMIC ACID 1,000 MG VIAL 2000 MG INJ ×2 (08:07→09:37)
--- NOTE | 2024-10-17 08:22 | SUR.OPER ---
Supine on padded [place] table with bilateral legs secured in padded positioning boots and suspended in positioning spars, operative leg in traction per surgeon. Head on one pillow. Arms secured on padded armboards <90 degrees abduction. Padded perineal post in place per surgeon.
[2024-10-17] MEDS: ROPIVACAINE/EPI/CLONIDINE/KET 50 ML SYRINGE INJ (08:26)
--- NOTE | 2024-10-17 09:44 | P.OP_ITS ---
Operative Date/Time/Diagnoses Date of procedure: 10/17/24 Pre-op diagnosis: Left hip osteoarthritis Post-op diagnosis: same Procedure & Clinicians Procedure: Left total hip arthroplasty Same procedure as scheduled: Yes Surgeon: Eb Cantu Psychologist Social: Nicky Collins Anesthesia Type: General, Spinal and Local Operative Notes Estimated Blood Loss (mL): 250 Procedure in detail: Left Uncemented Direct Anterior Depuy Total Hip Arthroplasty: Implants: * Yale Gription size 52 cup?with 2 screws (40 mm and 15 mm) * Actis femoral stem size 6 high offset? * 36 mm +1.5 ceramic femoral head? Procedure Summary: This 69-year-old female patient will return eventually for her right total hip arthroplasty. I had planned to intentionally lengthened her slightly during today's procedure and had templated her to have equal leg lengths with a +1.5 head so I initially trialed with a +5 head however I found this was quite hard to reduce and excessively long so I downsized to a +1.5 head. That was stable and still appeared slightly long radiographically so I used those sizes. 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 Procedure in Detail: This patient was seen preoperatively and evaluated for hip pain which was refractory to numerous nonoperative treatment modalities. Their hip pain correlated with radiographic changes demonstrating significant degeneration in the hip joint. The risks and benefits of continued nonoperative management versus operative management were discussed at length and all of the patient?s questions were answered. Additional educational materials providing further details beyond our discussion in clinic were provided via a publicly available patient education video which included the incidence of medical complications associated with total hip arthroplasty, reasons for revision following total hip arthroplasty, and patient satisfaction rates following total hip arthroplasty. That video can be accessed at [email or web address] . With this understanding of the risks inherent to the procedure, the patient elected to move forward with operative management. Following preoperative optimization, the patient was scheduled for surgery. The patient was met in the preoperative holding area the day of the procedure and all questions were answered. The patient?s nares were swabbed with betadine in order to decolonize them from MRSA. Informed consent was signed and the left limb was marked with indelible ink.? The patient was brought back to the operating room where anesthesia was induced. The patient was transferred to the Vista table and all bony prominences were padded. The operative site was prepped and draped in the usual sterile fashion. Prior to incision, tranexamic acid and cefazolin were administered. Operative templating images were displayed demonstrating the anticipated implant sizes and correct operative extremity. A timeout procedure was performed verifying the patient?s identity, medical comorbidities, allergies, relevant medications, anesthesia type and the surgical plan. All present were in agreement. The assistance of a physician assistant family teacher was required for positioning, room setup, soft tissue retraction and wound closure. Without this assistance, the procedure would have been significantly more challenging and time consuming.?? A direct anterior approach to the hip was utilized. This was performed with a longitudinal incision through a Heuter interval. The incision was planned 2 cm distal and 2 cm lateral to the ASIS extending towards the lateral patella, in line with the muscle body of the TFL. Following incision, the subcutaneous tissue was dissected while taking care to avoid injury to the lateral femoral cutaneous nerve. The fascia overlying the TFL was identified by dissecting off the overlying fat and identifying perforating vessels to the TFL. The TFL fascia was incised and dissected away from the medial border of the TFL. A cobra retractor was placed over the superior femoral neck between the abductors and the hip capsule and used to reflect the TFL laterally. A Sebastian self-retainer was then placed in the distal aspect of the wound between the TFL and the rectus femoris. This was tensioned to open up the direct anterior interval and the lateral circumflex vessels were identified and coagulated using electrocautery. The floor of the TFL fascia was incised, exposing the pericapsular fat overlying the hip capsule. A second cobra retractor was placed on the inferior femoral neck. A double-bent soft tissue retractor was placed on the anterior wall of the acetabulum and used to tension the reflected head of rectus femoris, which was then released in order to limit soft tissue tension. A capsulotomy was made in the midline of the anterior hip capsule in line with the femoral neck ending at the vastus tubercle. The double-bent retractor was removed in order to limit the amount of time that a soft tissue retractor remained on the anterior wall and protect the femoral nerve. Tag stitches were placed in the superior and inferior leaflets of the hip capsule. An Caden soft tissue retractor was introduced over the tag stitches and tensioned in the interval between the rectus femoris and the TFL in order to retract and protect those muscles. The cobra retractors were replaced intracapsularly, with one over the superior neck in the pocket created by the base of the greater trochanter and the other on the femoral head. The capsulotomy was extended laterally to the base of the greater trochanter and medially to the lesser trochanter. This required externally rotating the hip. Once the lesser trochanter had been identified, a neck cut was planned according to measurements from preoperative templating. A ruler was cut at the length measured between the superior aspect of the lesser trochanter and the collar of the prosthesis. This line was extended towards the inferior aspect of the lateral cobra retractor to plan a cut which would leave minimal residual femoral neck laterally. The neck was cut at 60 degrees of external rotation along that line. A second cut was performed to remove a large napkin ring and facilitate h ead extraction. The napkin ring cut and femoral head were removed.?? A broad anterior wall retractor was placed between the labrum and the anterior capsule so that the anterior capsule would prevent capturing and pinching the femoral nerve anteriorly. An additional retractor was placed on the posterior wall. External rotation and traction were applied through the Vista table so that the cut surface of the femoral neck would not restrict access to the acetabulum. The labrum was excised sharply and the pulvinar was excised with electrocautery to limit bleeding from branches of the obturator artery. Acetabular reamers were selected based on preoperative templating and measurements of the excised femoral head. These were introduced into the acetabulum. Fluoroscopy was utilized to replicate a standing AP pelvis radiograph by centering over the pelvis, rotating until there was appropriate symmetry between the obturator foramen, and introducing caudal tilt to match the position of the pubic symphysis relative to the sacrococcygeal junction according to the patient?s anatomy. Fluoroscopy was utilized to ensure appropriate reaming depth. Once satisfied with the reaming depth corresponding to the preoperative template and the pinch fit between the columns, an appropriate sized acetabular cup was selected which would provide 1 mm of press-fit. This cup was introduced and manipulated until appropriate abduction and anteversion angles were obtained with careful attention to appropriate abduction and anteversion angles as evaluated by the position of the cup relative to the anterior and posterior bailey of the acetabulum and the AP fluoroscopy which recreated the patient?s standing radiograph. The cup was impacted into place. Two screws were placed to provide additional fixation. Peripheral osteophytes were removed. The acetabular liner was then placed with care to ensure locking of the locking mechanism.? Attention was then turned to the femur. All retractors were removed, traction was released, a retractor was placed in the interval between the hip capsule and the gluteus minimus, and the hip was externally rotated to 90 degrees. Traction was applied through the Vista table to tension the lateral capsule and this was released using electrocautery. Traction was released and a Vista hook was placed posteriorly around the proximal femur at the level of the vastus ridge. The table height was lowered in order to restrict the tension on the anterior structures during hip hyperextension to limit the risk of femoral nerve palsy. With traction off and the hip at 90 degrees of external rotation, the hip was hyperextended and adducted while manually elevating the femur away from the acetabulum with the Vista hook to ensure it would not be caught behind the greater trochanter. An asymmetric retractor was placed over the calcar and a broad double-pronged retractor was placed over the greater trochanter. The tag stitch capturing the lateral leaflet of the capsule was moved to the medial side, leaving the conjoined and piriformis tendons isolated in the face of the greater trochanter. The hip was externally rotated and elevated. A release of the conjoined tendon was not necessary in order to obtain adequate exposure for broaching. The canal was opened with an opening broach and a rasp was used to remove cancellous bone. A rongeur was used to remove the residual lateral bone at the base of the greater trochanter to avoid placing the stem in varus. The femur was then broached to the appropriate sized stem yielding good rotational fit and fill of the canal as well as appropriate version of the stem trial. Neck and head trials were placed, all retractors were removed and the hip was returned to neutral abduction and extension. I then reduced the hip. Initial trialing was performed with a size 6 broach, a high offset neck and a +5 head. I initially manually externally rotated the hip and found no instability. I then locked the hip in 45 degrees of external rotation and dropped it to the floor with traction off which demonstrated no instability. An AP pelvis fluoroscopic image matching the preoperative standing radiograph with both lesser trochanters visible and both hips in 40 degrees of external rotation demonstrated that the operative site was excessively long. Additionally during reduction I would found that it was quite hard to get the hip into the socket, likely indicating excess lengthening. I therefore downsized to a +1.5 head. I rechecked stability and found that there was no dislocation with maximum external rotation or with a 45 degree drop test. AP and lateral hip fluoroscopic images were obtained to evaluate the broach size which demonstrated appropriate canal fill. The hip was dislocated and I returned to the broaching position. Based on my evaluation during initial trialing I planned to place these definitive components. The definitive stem was placed and the trunnion was cleaned and dried. I placed a ceramic head onto the trunnion and impacted it into place on the Moreno taper.?? All retractors were removed and the hip was reduced. A dilute mixture of betadine and peroxide was used to bathe the soft tissues during final fluoroscopic assessment. Appropriate component positioning was confirmed on an AP pelvis radiograph with the operative and nonoperative legs in 40 degrees of external rotation, evaluating leg length and offset. Appropriate stem fill was evaluated on AP and lateral hip radiographs. No fractures were identified on these radiographs. There was no hip instability with maximum (110?) external ro tation as well as a 45 degree drop test. The hip was copiously irrigated with pulse lavage. The capsule was closed with absorbable interrupted suture. The TFL fascia was closed with barbed suture w patrice carefully protecting the lateral femoral cutaneous nerve from entrapment. A mixture of Ropivacaine, Epinephrine, Clonidine and Toradol was infiltrated throughout the soft tissues. The skin was closed with 2-0 and 3-0 sutures. Surgical glue was applied and a soft dressing was placed.??The sponge, instrument and needle counts were reported as being correct at the end of the case.??No obvious complications occurred. The patient was transferred from the Vista table back to a stretcher. The patient emerged from anesthesia without difficulty and was taken to the PACU in a stable condition.? Plan for aftercare: * Anterior hip precautions * Weightbearing as tolerated * Aspirin 81 twice per day for DVT prophylaxis * Anticipate discharge home tomorrow * Change into normal clothes upon arrival on the hospital floor * Mobilize in the halls as much as is logistically possible. If physical therapy is unavailable for mobilization, then patient should mobilize with nursing s taff * Multimodal pain regimen with no IV opioids ordered * Apply ice machine to operative hip. Ensure that sufficient ice is in the chamber for the pad to remain cold * Follow up at [facility] in 2 weeks * Detailed postoperative instructions available at [email or web address]
--- NOTE | 2024-10-17 10:30 | DI.RAD.S_ITS ---
PROCEDURE: XR HIP W PEL IF DONE LT 2V INDICATIONS: POST OP ANTERIOR LEFT HIP TECHNIQUE: AP pelvis and lateral view of the hip acquired. COMPARISON: [facility], [place], XR HIP W PEL IF DONE LT 2V, 10/17/2024, 8:47. [facility], [place], XR HIP W PEL IF DONE RT 2V, 03/29/2023, 15:48. FINDINGS: Bones: Patient is status post left hip arthroplasty, with hardware components in expected positions. The hip joint appears congruent. The visualized bony structures appear intact. Severe right hip joint degeneration Soft tissues: Overlying postoperative changes are noted. No suspicious soft tissue densities. IMPRESSION: Expected post-operative appearance of a hip arthroplasty. Dictated by: Raúl Crow M.D. on 10/17/2024 at 11:58 Approved by: Raúl Crow M.D. on 10/17/2024 at 11:59
[2024-10-17] MEDS: hydrOXYzine HCL 25 MG TABLET PO (10:38)
[2024-10-17] MEDS: OXYCODONE IR 5 MG TABLET PO (10:38)
[2024-10-17] MEDS: LACTATED RINGERS 1,000 ML 100 ML IV (11:53)
[2024-10-17] MEDS: IBUPROFEN 600 MG TABLET PO ×3 (11:55→23:28)
--- NOTE | 2024-10-17 13:22 | PT-IP ANOTE ---
PT spoke with pt nurse Linda. Pt's current BP 97/44 and pt is dizzy/lightheaded right now. Not appropriate for PT evaluation/mobilization at this time
--- NOTE | 2024-10-17 16:20 | PT.IIE ---
Current Diagnoses Unilateral primary osteoarthritis, left hip (10/17/24) Surgery Performed Operation Date: 10/17/24 07:45 Actual Procedures p Total Hip Arthroplasty/Anterior Approach(Left) - Eb Cantu MD Surgical History (Last Reviewed 10/17/24 @ 06:41 by Cyndie Underwood, RN) H/O knee surgery H/O knee surgery History of ankle surgery (~2003) History of total left knee replacement (03/27/18) Hx of colonoscopy (09/17/20) Medical History (Last Reviewed 10/17/24 @ 06:41 by Cyndie Underwood, RN) Anesthesia complication Ankle fracture, left Arthritis At average risk for colon cancer Bilateral hip pain Bilateral primary osteoarthritis of hip Depression Elevated HDL Heartburn History of COVID-19 (08/22/24) History of urinary frequency Hypothyroidism Knee pain, bilateral Menopause Pain of right heel Pneumonia Screening for malignant neoplasm of breast Screening for malignant neoplasm of colon Urinary urgency Vision impairment Vitamin D deficiency Physical Therapy Inpatient Evaluation/Re-Eval M1 PT/OT-IP Prior Functional Status Start: 10/17/24 12:50 Freq: NEEDED Status: Active Protocol: Document 10/17/24 16:20 NM (Rec: 10/18/24 09:05 NM [id number]) Medical Review Prior Functional Status Medical History Reviewed Yes Diet/Fluid Consistency Regular Communication communicative and alert Mobility and Gait Mod I with FWW and spc for community and household distances Activities of Daily Living and IADL's IND Social History Household Members spouse Living Arrangements House Number of Floors (Floors) Two Floors Number of Stairs To Enter/Railing? 3 steps outside home to enter, B rails Indoors has 15 stairs (11 with R rail then turn and 4 steps with L rail) Bedroom located on 2nd floor Home Environment High Toilet,Walk in Shower Home Equipment Front Wheel Walker,Straight Cane,Raised Toilet Seat w/ Armrests,Shower Seat with Backrest,Grab Bars In Shower Additional Social History Comment Lives with Gigi Planning to stay for 1 week after d/c from hospital with friend in one-story home, no stairs to enter M2 PT-IP Current Condition Start: 10/17/24 12:50 Freq: NEEDED Status: Active Protocol: Document 10/17/24 16:20 NM (Rec: 10/18/24 09:05 NM [id number]) Physical Therapy Current Condition Current Condition Evaluation Date 10/17/24 Treatment Diagnosis s/p L WILLIAM Onset Date 10/17/24 M3 PT-IP Subjective Start: 10/17/24 12:50 Freq: NEEDED Status: Active Protocol: Document 10/17/24 16:20 NM (Rec: 10/18/24 09:05 NM [id number]) Subjective Physical Therapy Visit Type Type Initial Evaluation Visit Start Time 15:35 Visit Stop Time 16:20 Physical Therapy Visit Comments Patient Comments Pt agrees to participate in evaluation. , Gigi, present and assists in providing pt history. Pt reports no longer feeling dizzy or lightheaded. Therapy Pain Assessment Pain When Pain Assessed During Weight Bearing Location left hip Intensity 1 Description Aching M4 PT-IP Mobility and Gait Start: 10/17/24 12:50 Freq: NEEDED Status: Active Protocol: Document 10/17/24 16:20 NM (Rec: 10/18/24 09:05 NM [id number]) PT-Bed Mobility Assessment Supine to Sit Supine to Sit Contact Guard Assistance,1 Person Assistance,Head of Bed Elevated Sit to Supine Sit to Supine Contact Guard Assistance,1 Person Assistance Scooting Scooting to Edge of Bed Contact Guard Assistance Scooting Up and Down in Bed Standby Assistance PT-Transfer Assessment Sit to and From Stand Sit to and from Stand Contact Guard Assistance,1 Person Assistance,Use of Upper Extremities Equipment Transfer Assistive Device Gait Belt,Front Wheeled Walker Transfers Transfer Destination Bedside Commode Transfer Technique ambulation Transfer Ability Level of Assist Contact Guard Assistance Comments Mobility Comments Pt supine in bed with HOB elevated upon PT arrival. PT provided education on anterior hip precautions and WB status ; pt able to verbally demonstrate precautions. Pt transfers from supine > sitting on EOB with CGAx1, cueing needed for safety, pt able to slide LLE to EOB without UE use, HOB elevated. Pt then scoots EOB with CGA for safety, initially needs support at trunk for stability due to initial lightheadedness, resolves within seconds. Pt then transfers from sitting EOB> stand with FWW and CGA, using of 1 UE to assist. Pt performs 2 sit <> stand using FWW and CGA, cueing for execution with stand > sit for safety. Gait Assessment Gait Gait Assistance Required: Contact Guard Assist Able to Maintain Weight Bearing Status Yes During Gait Assistive Devices Assistive Device Gait Belt,Front Wheeled Walker Gait Deviations General Gait Pattern Antalgic,Decreased Stride Length,Step-to Gait Factors Limiting Gait Function Factors Limiting Gait Function Decreased Activity Tolerance, Decreased Strength,Limited Range of Motion,Pain Comments Gait Comments Pt ambulated x20 ft with FWW and CGA, cueing for pt to roll FWW during advancement instead of picking up FWW. Demos step-to pattern, antalgic gait. Pt then transferred to [facility] with FWW, cueing for pt to take small marching steps with turn to prevent max hip ER, prevent entangling with IV. Pt stand > sit on BSC with FWW and CGA, cueing for LLe slightly forward for comfort and use of 1 UE to assist with controlled descent. Pt able to urinate, performs pericare in sitting. Sit > stand via FWW with 1 UE assist, then ambulates x15 ft to sink, standing for several minutes to wash hands, then x10 ft to bed with FWW and CGA back to bed. Sit <> stand x1 CGA with FWW to don underwear with PT assist, cueing LLE first, working on standing balance at FWW. Pt fatigued, transfers sitting > supine with CGA, pt assisting LLE onto bed with UE . Pt able to reposition with SBA in bed. Pt left supine in bed HOB elevated, pillow on lateral side of LLE to prevent ER, call light within reach, bed alarm activated and RN aware. Stair Climbing Assessment Comments Stair Climbing Comments Did not assess due to pt fatigue PT-Balance Assessment Sitting Balance and Reactions Static Sitting Balance Ability Good Dynamic Sitting Balance Ability Good Standing Balance and Reactions Static Standing Balance Ability Good Dynamic Standing Balance Ability Fair Device Used FWW M5 PT-IP Objective Assessments Start: 10/17/24 12:50 Freq: NEEDED Status: Active Protocol: Document 10/17/24 16:20 NM (Rec: 10/18/24 09:05 NM [id number]) Orientation Orientation/Cognition Level of Alertness Alert Orientation Name,Birthday,Place,Situation Language Function Ability No Deficits Noted Safety Awareness Understands Safety Issues Memory Description No Deficits Noted Gross Range of Motion Upper Extremity ROM Assessment Within Functional Limits Lower Extremity ROM Assessment Left Impaired Strength Upper Extremity Strength Assessment Within Functional Limits Lower Extremity Strength Assessment Left Impaired Comments Strength Comments RLE 4/5 hip flex, abd; knee flex/ext; ankle dorsiflex/ plantarfled LLE impaired 3/5; able to slide LLE off of bed, demos knee ext, hip flex against gravity on EOB Sensation Assessment Sensation Gross Sensation WNL Light Touch Intact Comments Sensation Comments LLe intact to light touch sensation, reports mildly less sensitive than RLE at thigh Muscle Tone Muscle Tone WNL Yes M6 PT-IP Treatment Start: 10/17/24 12:50 Freq: NEEDED Status: Active Protocol: Document 10/17/24 16:20 NM (Rec: 10/18/24 09:05 NM [id number]) Physical Therapy Treatment Exercises Exercises Ankle Pumps,Gluteal Sets,Quad Sets,Heel Slides Education Education Provided Precautions,Weight Bearing Status,Post-Op Packet,Safety Other Treatments Other Treatment Performed Pt provided handouts with education to WBAT, exercises, safety strategies. Education on cryotherapy, use of pillows to prevent hip ER in sitting/ supine M7 PT-IP Assessment and Plan Start: 10/17/24 12:50 Freq: NEEDED Status: Active Protocol: Document 10/17/24 16:20 NM (Rec: 10/18/24 09:05 NM [id number]) PT Summary Assessment and Plan Potential Rehabilitation Potential Excellent Status of Condition at Evaluation Stable Summary Impairments Pain,ROM,Strength,Balance, Sensation,Bed Mobility, Transfers,Gait,Activity Tolerance Assessment Summary PT is a 69 y.o. presenting s/p L WILLIAM via anterior approach. She is CGA for bed mobility and SBA for repositioning. Pt is CGA for transfers and gait using FWW, CGA needed for occasional steadying and cueing for safety. Demos step- to approach with gait, needs cues to roll FWW. Pt is aware of anterior hip precautions and WB status; able to state and demonstrate precautions with minimal cueing. Pt lives with in 2nd story home with 15 stairs and 1 rail, bed room on 2nd floor; 3 steps to enter with rails. Prior to admit, she was using FWW or spc for mobility due to pain. Pt and are planning on staying with a friend in a single story home without stairs for 1 week. Pt already has DME at home including elevated toilet seat, guard rails, shower seat with walk- in shower. Pt's able to provide physical assistance to pt. Discharge recommendation home with assist and HHPT vs OP PT pending progression with stair training. Goals Bed Mobility Goal Independent Transfer Goal Standby Assistance Gait Goal Standby Assistance Gait Distance 150 ft Other Goals Pt will perform at least 15 stairs with 1 rail assist and LRAD if needed in order to get to 2nd floor bedroom Pt will ambulate using LRAD at least 150 ft and SBA or better in order to perform household mobility Days to Meet Goals 5 Frequency of Treatment Frequency Of Treatment Twice a Day Treatment Plan Physical Therapy Treatment Plan Bed Mobility Training,Transfer Training,Gait Training, Therapeutic Exercise,Post Op Education,Discharge Planning, Hot or Cold Pack Other Recommendations and Next Treatment Stair management and caregiver Focus training Precautions Anterior Hip Precautions No Hip External Rotation Other Precautions No hip hyperextension Weight Bearing Status Weight Bearing Status Weight Bear as Tolerated Recommendations To Nursing Amount of Assist Needed 1 Person Assist Discharge Recommendations PT Discharge Recommendations Home with Assistance,Home Health,Outpatient PT Other Discharge Recommendations Home Health pending progression with stair training Transportation Needs at Discharge Private Vehicle
[2024-10-17] MEDS: TRAMADOL 50 MG TABLET PO (16:51)
[2024-10-17] MEDS: DOCUSATE 100 MG CAPSULE PO (20:35)
[2024-10-17] MEDS: TRAZODONE 50 MG TABLET PO (20:35)
[2024-10-17] MEDS: ASPIRIN EC 81 MG TABLET PO (20:35)
[2024-10-18] MEDS: TRAMADOL 50 MG TABLET PO (01:37)
[2024-10-18 02:00] VITALS: BP 129/70; PULSE 78; RESP 14; TEMP 37.3; O2SAT 94
[2024-10-18] MEDS: SODIUM CHLORIDE 0.9% FLUSH 10 ML IV (02:27)
[2024-10-18] MEDS: IBUPROFEN 600 MG TABLET PO (05:09)
[2024-10-18 05:58] LABS: Hematocrit 29.7 % (36-46); Hemoglobin 9.8 g/dL (12.0-16.0)
[2024-10-18 08:00] VITALS: BP 94/45; PULSE 94; RESP 14; TEMP 37; O2SAT 96
--- NOTE | 2024-10-18 08:56 | P.PN_ITS ---
Subjective Subjective Interval history: CHIEF COMPLAINT My blood pressure still seems to be weird. SUBJECTIVE The patient, Kailyn Thacker, described her condition following a left total hip arthroplasty performed yesterday. She experienced lightheadedness and low blood pressure (97/44) when physical therapy came by yesterday, which prevented mobilization. Her blood pressure was recorded at 100/57 at the last check. She mentioned a very low reading (80/35) during the night but noted she did not feel dizzy, lightheaded, or nauseated. The patient reported urinating frequently, indicating adequate fluid intake. She stated, My knee is still hurting, particularly on the outside, which she attributes to positioning during surgery. She expressed a preference for tramadol over oxycodone for pain management, stating, I love tramadol as opposed to oxycodone. SOCIAL HISTORY None. PERTINENT PMH - None discussed. PRIOR HIP/KNEE PROCEDURES: Left Total Hip Arthroplasty 10/17/24: Implants: * [place] Gription size 52 cup?with 2 screws (40 mm and 15 mm) * Actis femoral stem size 6 high offset? * 36 mm +1.5 ceramic femoral head? Estimated Blood Loss (mL): 250 Procedure Summary: This 69-year-old female patient will return eventually for her right total hip arthroplasty. I had planned to intentionally lengthened her slightly during today's procedure and had templated her to have equal leg lengths with a +1.5 head so I initially trialed with a +5 head however I found this was quite hard to reduce and excessively long so I downsized to a +1.5 head. That was stable and still appeared slightly long radiographically so I used those sizes. 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 PHYSICAL EXAM None reported. RADIOLOGY None reported. LABS - Hemoglobin: 9.8 ASSESSMENT Postoperative status following left total hip arthroplasty with low blood pressure and knee pain likely due to surgical positioning. PLAN The patient will be monitored and allowed time to stabilize postoperatively without additional IV fluids. Pain management will transition to tramadol to minimize side effects. Physical therapy will commence to facilitate mobilization. The patient will be discharged with a tramadol prescription. - Monitor blood pressure and symptoms. Encourage oral intake to replenish fluids. Do not plan to administer supplemental IV boluses given high volume urination, indicating adequate hydration - Initiate physical therapy. - Prescribe tramadol for pain management. - Plan discharge with tramadol prescription sent to [facility]. PLAIN LANGUAGE SUMMARY You are recovering from your hip surgery, and your blood pressure is a bit low, but since you're not feeling lightheaded, I'm not too worried. We'll start physical therapy soon to get you moving. I'll send a prescription for tramadol to your pharmacy so you can use it instead of oxycodone for pain. Let's keep you hydrated, and we'll get you home soon where you can be more comfortable. Exam Vital Signs (past 8 hours): - 10/18/24 02:00 10/18/24 08:00 Temperature 99.1 F 98.6 F Pulse Rate 78 94 H Respiratory Rate 14 14 Blood Pressure 129/70 94/45 L Pulse Oximetry 94 96 Oxygen Flow Rate 0 0 Oxygen Delivery Method Room Air Oxygen Flow Rate 0 Objective Labs 10/18/24 05:30 Labs: Laboratory Results - last 24 hr 10/18/24 05:30 Hgb 9.8 L Hct 29.7 L PFSH Medical History Anesthesia complication History of COVID-19 (08/22/24) Bilateral primary osteoarthritis of hip Pain of right heel Elevated HDL Bilateral hip pain At average risk for colon cancer Screening for malignant neoplasm of breast Screening for malignant neoplasm of colon Vitamin D deficiency Menopause Vision impairment Urinary urgency History of urinary frequency Heartburn Arthritis Pneumonia Ankle fracture, left Depression Hypothyroidism Knee pain, bilateral Surgical History Hx of colonoscopy (09/17/20) History of total left knee replacement (03/27/18) History of ankle surgery (~2003) H/O knee surgery H/O knee surgery Social History household members: spouse Smoking Status: Former smoker alcohol intake: current Assessment & Plan Time-Based Coding :: [TOTAL MINUTES] spent with patient and on the chart (including review of chart, obtaining history, exam, reviewing outside data, placing orders, documenting exam and treatment plan, and counseling patient) on [DATE].
--- NOTE | 2024-10-18 09:00 | PT.IPTN ---
Current Diagnoses Unilateral primary osteoarthritis, left hip (10/17/24) Surgery Performed Operation Date: 10/17/24 07:45 Actual Procedures p Total Hip Arthroplasty/Anterior Approach(Left) - Eb Cantu MD Physical Therapy Treatment Note M2 PT-IP Current Condition Start: 10/17/24 12:50 Freq: NEEDED Status: Active Protocol: Document 10/17/24 16:20 NM (Rec: 10/18/24 09:05 NM [id number]) Physical Therapy Current Condition Current Condition Evaluation Date 10/17/24 Treatment Diagnosis s/p L WILLIAM Onset Date 10/17/24 M3 PT-IP Subjective Start: 10/17/24 12:50 Freq: NEEDED Status: Active Protocol: Document 10/18/24 09:14 TS (Rec: 10/18/24 09:22 TS [id number]) Subjective Physical Therapy Visit Type Type Treatment Note Visit Start Time 09:00 Visit Stop Time 09:14 Number of TRAINING AND DEVELOPMENT MANAGER Visits 1 Physical Therapy Visit Comments Patient Comments Pt found resting in the chair, she is agreeable to PT. M4 PT-IP Mobility and Gait Start: 10/17/24 12:50 Freq: NEEDED Status: Active Protocol: Document 10/18/24 09:14 TS (Rec: 10/18/24 09:22 TS [id number]) PT-Transfer Assessment Sit to and From Stand Sit to and from Stand Standby Assistance Equipment Transfer Assistive Device Gait Belt,Front Wheeled Walker Comments Mobility Comments Pt recalls 2/2 hip precautions . STS with FWW SBA. Pt ambulates with an emerging step thru gait SBA ~125' with FWW. She performs steps x3 with B handrails, pt has no LOB or buckling. She ambulates back to the room, was left in the chair, all needs met. Gait Assessment Gait Gait Assistance Required: Standby Assistance Distance (Feet) 125 Able to Maintain Weight Bearing Status Yes During Gait Assistive Devices Assistive Device Gait Belt,Front Wheeled Walker Gait Deviations General Gait Pattern Antalgic,Decreased Stride Length,Step-to Gait Factors Limiting Gait Function Factors Limiting Gait Function Decreased Activity Tolerance, Decreased Strength,Limited Range of Motion,Pain Stair Climbing Assessment Evaluation Level of Assist On Stairs Standby Assistance Devices Stair Climbing Assistive Devices Left Railing,Right Railing Technique/Endurance Stair Climbing Direction Ascend and Descend Stair Climbing Technique Step to Step Number of Steps Climbed 3 PT-Balance Assessment Sitting Balance and Reactions Static Sitting Balance Ability Good Dynamic Sitting Balance Ability Good Standing Balance and Reactions Static Standing Balance Ability Good Dynamic Standing Balance Ability Fair Device Used FWW M5 PT-IP Objective Assessments Start: 10/17/24 12:50 Freq: NEEDED Status: Active Protocol: Document 10/17/24 16:20 NM (Rec: 10/18/24 09:05 NM [id number]) Orientation Orientation/Cognition Level of Alertness Alert Orientation Name,Birthday,Place,Situation Language Function Ability No Deficits Noted Safety Awareness Understands Safety Issues Memory Description No Deficits Noted Gross Range of Motion Upper Extremity ROM Assessment Within Functional Limits Lower Extremity ROM Assessment Left Impaired Strength Upper Extremity Strength Assessment Within Functional Limits Lower Extremity Strength Assessment Left Impaired Comments Strength Comments RLE 4/5 hip flex, abd; knee flex/ext; ankle dorsiflex/ plantarfled LLE impaired 3/5; able to slide LLE off of bed, demos knee ext, hip flex against gravity on EOB Sensation Assessment Sensation Gross Sensation WNL Light Touch Intact Comments Sensation Comments LLe intact to light touch sensation, reports mildly less sensitive than RLE at thigh Muscle Tone Muscle Tone WNL Yes M6 PT-IP Treatment Start: 10/17/24 12:50 Freq: NEEDED Status: Active Protocol: Document 10/18/24 09:14 TS (Rec: 10/18/24 09:22 TS [id number]) Physical Therapy Treatment Education Education Provided Precautions,Weight Bearing Status,Post-Op Packet,Safety M7 PT-IP Assessment and Plan Start: 10/17/24 12:50 Freq: NEEDED Status: Active Protocol: Document 10/18/24 09:14 TS (Rec: 10/18/24 09:22 TS [id number]) PT Summary Assessment and Plan Potential Rehabilitation Potential Excellent Summary Impairments Pain,ROM,Strength,Balance, Sensation,Bed Mobility, Transfers,Gait,Activity Tolerance Progress Towards Goals Progressing Toward Goals Assessment Summary Kailyn is doing well with her mobility. She is SBA for STS and gait of ~125'. She performed stairs x3 with B handrials and SBA. Pt demonstrated good awareness of safety and her precautions. PT is recommending home with assist and outpatient PT. Goals Bed Mobility Goal Independent Transfer Goal Standby Assistance Gait Goal Standby Assistance Gait Distance 150 ft Other Goals Pt will perform at least 15 stairs with 1 rail assist and LRAD if needed in order to get to 2nd floor bedroom Pt will ambulate using LRAD at least 150 ft and SBA or better in order to perform household mobility Days to Meet Goals 5 Frequency of Treatment Frequency Of Treatment Twice a Day Treatment Plan Physical Therapy Treatment Plan Bed Mobility Training,Transfer Training,Gait Training, Therapeutic Exercise,Post Op Education,Discharge Planning, Hot or Cold Pack Precautions Anterior Hip Precautions No Hip External Rotation Other Precautions No hip hyperextension Weight Bearing Status Weight Bearing Status Weight Bear as Tolerated Recommendations To Nursing Amount of Assist Needed Standby Assistance Discharge Recommendations PT Discharge Recommendations Home with Assistance, Outpatient PT Transportation Needs at Discharge Private Vehicle
--- NOTE | 2024-10-18 09:00 | PM.DS.1 ---
History of Present Illness History of Present Illness Chief complaint: Left Total Hip Arthroplasty/Anterior Narrative: CHIEF COMPLAINT My blood pressure still seems to be weird. SUBJECTIVE The patient, Kailyn Thacker, described her condition following a left total hip arthroplasty performed yesterday. She experienced lightheadedness and low blood pressure (97/44) when physical therapy came by yesterday, which prevented mobilization. Her blood pressure was recorded at 100/57 at the last check. She mentioned a very low reading (80/35) during the night but noted she did not feel dizzy, lightheaded, or nauseated. The patient reported urinating frequently, indicating adequate fluid intake. She stated, My knee is still hurting, particularly on the outside, which she attributes to positioning during surgery. She expressed a preference for tramadol over oxycodone for pain management, stating, I love tramadol as opposed to oxycodone. SOCIAL HISTORY None. PERTINENT PMH - None discussed. PRIOR HIP/KNEE PROCEDURES Left total hip arthroplasty performed by myself yesterday. PHYSICAL EXAM None reported. RADIOLOGY None reported. LABS - Hemoglobin: 9.8 ASSESSMENT Postoperative status following left total hip arthroplasty with low blood pressure and knee pain likely due to surgical positioning. PLAN The patient will be monitored and allowed time to stabilize postoperatively without additional IV fluids. Pain management will transition to tramadol to minimize side effects. Physical therapy will commence to facilitate mobilization. The patient will be discharged with a tramadol prescription. - Monitor blood pressure and symptoms. - Initiate physical therapy. - Prescribe tramadol for pain management. - Plan discharge with tramadol prescription sent to [facility] which was sent through the [employer] system. PLAIN LANGUAGE SUMMARY You are recovering from your hip surgery, and your blood pressure is a bit low, but since you're not feeling lightheaded, I'm not too worried. We'll start physical therapy soon to get you moving. I'll send a prescription for tramadol to your pharmacy so you can use it instead of oxycodone for pain. Let's keep you hydrated, and we'll get you home soon where you can be more comfortable. PROCEDURES None. Discharge Providers Provider Discharge Date: 10/18/24 Primary care physician: Alex Michel MD Consults: 10/17/24 06:38 Consult to Anesthesiology Routine Comment: Consulting Provider: Anesthesiologist Reason for consultation: Regional block for post operative pain control 10/17/24 10:59 Consult to Discharge Planning Routine Comment: Consult to Physical Therapy Evaluate & Treat Comment: Physician Instructions: post op WILLIAM protocol Discharge provider: Eb Cantu MD Exam Vital Signs (past 8 hours): - 10/18/24 02:00 10/18/24 08:00 Temperature 99.1 F 98.6 F Pulse Rate 78 94 H Respiratory Rate 14 14 Blood Pressure 129/70 94/45 L Pulse Oximetry 94 96 Oxygen Flow Rate 0 0 Oxygen Delivery Method Room Air Oxygen Flow Rate 0 Objective Labs 10/18/24 05:30 Labs: Laboratory Results - last 24 hr 10/18/24 05:30 Hgb 9.8 L Hct 29.7 L PFSH Medical History Anesthesia complication History of COVID-19 (08/22/24) Bilateral primary osteoarthritis of hip Pain of right heel Elevated HDL Bilateral hip pain At average risk for colon cancer Screening for malignant neoplasm of breast Screening for malignant neoplasm of colon Vitamin D deficiency Menopause Vision impairment Urinary urgency History of urinary frequency Heartburn Arthritis Pneumonia Ankle fracture, left Depression Hypothyroidism Knee pain, bilateral Surgical History Hx of colonoscopy (09/17/20) History of total left knee replacement (03/27/18) History of ankle surgery (~2003) H/O knee surgery H/O knee surgery Social History household members: spouse Smoking Status: Former smoker alcohol intake: current Discharge Plan Discharge Plan Patient Disposition: Home Provider Discharge Comment: CHIEF COMPLAINT My blood pressure still seems to be weird. SUBJECTIVE The patient, Kailyn Thacker, described her condition following a left total hip arthroplasty performed yesterday. She experienced lightheadedness and low blood pressure (97/44) when physical therapy came by yesterday, which prevented mobilization. Her blood pressure was recorded at 100/57 at the last check. She mentioned a very low reading (80/35) during the night but noted she did not feel dizzy, lightheaded, or nauseated. The patient reported urinating frequently, indicating adequate fluid intake. She stated, My knee is still hurting, particularly on the outside, which she attributes to positioning during surgery. She expressed a preference for tramadol over oxycodone for pain management, stating, I love tramadol as opposed to oxycodone. SOCIAL HISTORY None. PERTINENT PMH - None discussed. PRIOR HIP/KNEE PROCEDURES Left total hip arthroplasty performed by myself yesterday. PHYSICAL EXAM None reported. RADIOLOGY None reported. LABS - Hemoglobin: 9.8 ASSESSMENT Postoperative status following left total hip arthroplasty with low blood pressure and knee pain likely due to surgical positioning. PLAN The patient will be monitored and allowed time to stabilize postoperatively without additional IV fluids. Pain management will transition to tramadol to minimize side effects. Physical therapy will commence to facilitate mobilization. The patient will be discharged with a tramadol prescription. - Monitor blood pressure and symptoms. - Initiate physical therapy. - Prescribe tramadol for pain management. - Plan discharge with tramadol prescription sent to [facility] which was sent through the [employer] system. PLAIN LANGUAGE SUMMARY You are recovering from your hip surgery, and your blood pressure is a bit low, but since you're not feeling lightheaded, I'm not too worried. We'll start physical therapy soon to get you moving. I'll send a prescription for tramadol to your pharmacy so you can use it instead of oxycodone for pain. Let's keep you hydrated, and we'll get you home soon where you can be more comfortable. PROCEDURES None. Discharge orders & Medications Discharge Orders: Discharge (Order); Ordered 10/18/24 Ordered By: Eb Cantu Prescriptions: Continued levothyroxine 88 mcg tablet 88 mcg PO DAILY Qty: 90 2RF fluoxetine 60 mg tablet See Rx Instructions .ROUTE .COMPLEX Qty: 90 0RF Dose Instruction: TAKE 1 TABLET BY MOUTH DAILY Rx Instructions: TAKE 1 TABLET BY MOUTH DAILY meloxicam 15 mg tablet 15 mg PO BID Qty: 180 0RF trazodone 50 mg tablet See Rx Instructions .ROUTE .COMPLEX Qty: 90 0RF Dose Instruction: TAKE 1 TABLET BY MOUTH AT BEDTIME Rx Instructions: TAKE 1 TABLET BY MOUTH AT BEDTIME cholecalciferol (vitamin D3) 25 mcg (1,000 unit) capsule 1,000 unit PO DAILY vitamin B complex Tablet 1 tab PO DAILY turmeric 400 mg Capsule 300 mg PO BEDTIME acetaminophen 500 mg Tablet 1,000 mg PO BID-TID ibuprofen 200 mg Tablet 400 mg PO DAILY Follow up/Referrals: Alex Michel MD [Primary Care Provider] - Eb Cantu MD [Physician] - (Follow up at [facility] as scheduled in 2 weeks. ) Diet/Activity/Treatments Diet: Diet as Tolerated Activity: Weightbearing as tolerated, maintain anterior hip precautions. Cold/Heat Therapy: Ice the hip for additional pain control Skin/Wound/Dressing Care Report to your healthcare provider any signs of infection, such as:: chills, fever, night sweats, unusual drainage and unusual redness Dressing: Keep dressing intact, clean and dry until 2 week post-op appointment. No soaking the incision site in pools or tubs. No topical ointments or creams to the incision site. Visit Report/Discharge Packet Instructions: DI for Hip Replacement, DI for Prescription Opioid Use Stand Alone Forms: Patient Portal/API Discharge Data Primary Care Provider: Alex Michel Attending Provider: Eb Cantu
[2024-10-18] MEDS: ASPIRIN EC 81 MG TABLET PO (09:28)
[2024-10-18] MEDS: LEVOTHYROXINE 88 MCG TABLET PO (09:28)
[2024-10-18] MEDS: FLUoxetine 20 MG CAPSULE PO (09:28)
[2024-10-18] MEDS: CHOLECALCIFEROL (VITAMIN D3) 1,000 UNIT TABLET 1000 UNIT PO (09:28)
[2024-10-18] MEDS: DOCUSATE 100 MG CAPSULE PO (09:28)
--- NOTE | 2024-10-18 11:13 | CM.DANOTE ---
Patient is a 69 yo female who was admitted [facility] on 10/17/24 for LTHA. Pt has [facility] for insurance and her PCP is Dr. Alex Michel. EMR was reviewed. Per Ortho , pt tolerated surgery well and voiding independently, ambulated with PT, tolerating diet and medically stable to discharge home today and no identified barriers to d/c. Per PT, recommending home with outpt PT. Spouse present for CG training this AM and cleared for home. SW met bedside with pt and spouse and explained role and they confirm they live at home in [place] and are both active and independent at baseline. 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 Pt does not typically use DME for mobility at baseline but has a FWW and cane at home for use post-op. Pt drives and her POA is her spouse and then adult son Richard who lives in [place]. Both pt and spouse feel they are safe for home and that spouse can assist as needed and preference is home today and they confirm pt has outpt PT appointments scheduled for this next week and do not feel HH needed and would like to d/c home this morning. SW updated RN and marketing research analyst. Plan: Patient to d/c home via spouse POV today before lunch time and outpt f/u with Ortho and outpt PT. No further SW needs at this time. MARVIN Pineda Discharge Planning/Care Management Advanced directive, confirm from FAMILY Start: 10/17/24 11:09 Freq: Q24H Status: Discharge Protocol: Document 10/17/24 11:18 ESV (Rec: 10/17/24 11:19 ESV [id number]) Advance Directive, confirm on record Time 11:19 Person contacted Gigi Copy received No CM Discharge Assessment Start: 10/18/24 11:12 Freq: Status: Active Protocol: Document 10/18/24 11:12 BF (Rec: 10/18/24 11:13 BF [id number]) Discharge Planning Assessment Assigned Night Worker MARVIN Rangel DPOA/Assigned Designee Name spouse Gigi Contact Information [phone] Advance Directives? Yes Advance Directives on File No History Provided By Patient,Significant Other, Medical Record Has Patient been admitted in last 30 No days? Prior Living Arrangements House Household Members spouse Type of transporation used prior to Drives own vehicle admit Independent with ADL's Yes Is patient alert and oriented? Yes Caregiver for Another No Community Services used prior to Physical Therapy admission: DME Already Rented / Owned FWW / Walker,Cane Patient/Family Preference OP PT Therapy Barriers to Discharge No Discharge Plan Home Community Services Physical Therapy Transportation Arrangement Spouse bedside and confirms he will transport today Referrals Initiated None needed Whiteboard Updated in Patient Room with Yes name and ext. # of Night Worker Review Status In Process Please Provide Date Initial DC 10/18/24 Assessment Was Performed Next Review Type Continued Stay Review Pre-Anesthesia Assessment Start: 10/08/24 09:54 Freq: Status: Discharge Protocol: Document 10/08/24 09:55 CAB (Rec: 10/08/24 10:21 CAB [id number]) Pre-Anesthesia Assessment PAC Comment Phone assessment Patient Information Reviewed Via Phone Assessment Diagnostic Results BMP/CMP,CBC,EKG Comment Labs/EKG @ 08/01/24 Primary Care Provider Alex Michel Comment Pre-op 07/04/24, clearance form 03/13/24 Seen Specialist in Last 12 Months Yes Specialist Seen Orthopedist Primary Language Nauruan Preferred Language Nauruan Janitor Supervisor Required No Height 170.18 cm Weight 100.244 kg Body Mass Index (BMI) 34.6 Hearing Ability Normal Visual Assist Magnifying Glass Dentition Type Teeth, Natural Present Barriers to Learning None Hx Anesthesia Reactions Yes: Nausea Hx Family Anesthesia Reaction Yes: Sister-PONV Hx Malignant Hyperthermia No Hx Blood Transfusions No Hx Blood Transfusion Reaction No Anesthesia Review Requested No Beef Farmer No alcohol intake current alcohol intake frequency 0-2 drinks per day Smoking Status Former smoker Tobacco type cigarettes how long ago did patient quit smoking 1983 Substance Use Type does not use Pain Present Pain Reported Musculoskeletal Symptoms Abnormal Gait,Difficulty Walking,Joint Pain History of Falling (Recent or History of Yes ) Patient is completely paralyzed or No completely immobile Prosthesis or Orthotic Device Cane,Front Wheel Walker Mental Status Oriented to own ability Is patient on oxygen? No Does patient have BLANK/SOB No Hx Sleep Apnea No CPAP/BIPAP use not prescribed Currently Taking a Beta Jai No Can You Climb a Flight of Stairs Without Yes: a little bit maybe SOB Hx Chest Pain No Hx SOB No Hx Syncope or Dizziness No Anti-Coagulant Therapy No Has a Cryptologic Supervisor No Cardiac Testing No Hx Pacemaker/ICD No Pacemaker Rep Required? No Diet Type At Home Regular Dysphagia No Gastrointestinal Symptoms Constipation Bladder Pattern Frequency,Incontinent,Urgency Urinary Catheter Present No Hx Urinary Self Catheterization No Diabetes No HgbA1C 5.4 Date 08/01/24 Patient No Lactating No Hx Drug Resistant Organism No Presence of External or Internal Medical Yes: left TKA, left ankle Devices hardware Have you had any close contact with No someone diagnosed with COVID-19? Received a COVID vaccine? Yes Comment Covid positive 8 weeks ago Marital Status Lives With spouse Current Living Arrangements House Number of Floors (Floors) Two Floors Support System Friend(s),Spouse Does the Patient Have Assistance After No Surgery Patient Discharge Plan Description Other Comment Pt requesting overnight length of stay Additional comment Plans to stay 1 week at friend 's house @ [place] Feels Safe in Current Environment Yes Been Physically Hurt or Threatened By a No Person in Current Environment Do you have thoughts of harming yourself None or others? Are you currently considering suicide? No Do you have a plan to hurt yourself or No Plan others? Do You Have Any Spiritual Beliefs That No May Affect Your HC Choices? Do You Have Any Cultural Practices That No May Affect Your HC Choices? Comment Patricia Who Can We Speak to About Patient's Care Family, friends Identifying Code for Release of Patient Declines to issue Information Health Care Proxy/Next of Kin Feliz Thacker () Health Care Proxy or cell: Emergency Contact Name Feliz Thacker () Emergency Contact or cell: [phone] Advance Directives? Yes Advance Directives on File No Power of Beef Farmer Yes Power of Beef Farmer Name Feliz Thacker Power of Beef Farmer PAC Instructions Do not shave/clip surgical site,Durable medical equipment ,Medications to take/avoid, Nasal antibiotic,No ETOH/ petroleum product on skin DOS, NPO,Pre-op antibiotic,Pre- surgical wash,Sturdy shoes/ comfortable clothes,Do not bring valuables and remove jewelry
== END 2024-10-18 10:03 | disposition home or self-care (01) ==
LOC: OR 06:19 → AC 06:20
PROVIDERS: PCP Family Medicine; Referring Provider Orthopaedic Surgery Adult Reconstructive Orthopaedic Surgery; Visit Provider Orthopaedic Surgery Adult Reconstructive Orthopaedic Surgery
PROC: (CPT 27130; principal; 2024-10-17 07:45)
DX: M16.12 Unilateral primary osteoarthritis, left hip (principal); M25.762 Osteophyte, left knee
CPT/HCPCS: 27130; 36415; 73502; 76000; 85014; 85018; 97110; 97161; 97530; C1776; A9270; J0690; J1100; J2405; J2704; J3010

== ENCOUNTER → 2024-11-08 | Outpatient (CLI) | payer MEDICARE, SELFPAY ==
[2024-10-17 11:04] VITALS: BMI 35.9
--- NOTE | 2024-11-08 12:44 | DI.MG.S_ITS ---
BILATERAL DIGITAL SCREENING MAMMOGRAM 3D/2D WITH CAD: 11/08/2024 CLINICAL: Routine screening. Family history of breast cancer. Comparison is made to exams dated: 11/06/2023 mammogram, 10/21/2022 mammogram, and 10/01/2021 mammogram - [facility]. There are scattered areas of fibroglandular density (category b / 25%-50% glandular tissue). Current study was also evaluated with a Computer Aided Detection (CAD) system. No significant masses, calcifications, or other findings are seen in either breast. There has been no significant interval change. IMPRESSION: NEGATIVE There is no mammographic evidence of malignancy. A 1 year screening mammogram is recommended. Based on the Tyrer Cuzick model (a risk assessment model) the patient's lifetime risk is 6.7% and her 10 year risk is 3.7%. According to the ACR, ACS, and NCCN guidelines, an annual breast MRI exam along with mammogram is recommended if the patient's lifetime risk is 20% or greater. This exam was interpreted at Station ID: [id number]. NOTE: For mammograms, a report in lay terms will be sent to the patient. Approximately 15% of breast malignancies will not be visualized mammographically. In the management of a palpable breast mass, a negative mammogram must not discourage biopsy of a clinically suspicious lesion. Electronically Signed By: Enmanuel prather/asaf:11/20/2024 10:55:02 letter sent: Normal Exam ACR BI-RADS Category 1: Negative
== END ==
PROVIDERS: PCP Family Medicine; Referring Provider Family Medicine; Visit Provider Family Medicine
DX: Z12.31 Encounter for screening mammogram for malignant neoplasm of breast (principal); Z80.3 Family history of malignant neoplasm of breast
CPT/HCPCS: 77063; 77067

== ENCOUNTER → 2025-02-20 10:38 | Outpatient (CLI) | payer MEDICARE, SELFPAY ==
[2024-10-17 11:04] VITALS: BMI 35.9
[2025-02-20 11:13] LABS: Add Manual Diff / Slide Review NO; Basophils Absolute Auto 100 /uL (0-100); Basophils Percent Auto 1.9 % (0-2); Eosinophils Absolute Auto 200 /uL (0-450); Eosinophils Percent Auto 3.5 % (2-4); Hematocrit 35.2 % (36-46); Hemoglobin 11.2 g/dL (12.0-16.0); Lymphocytes Absolute Auto 1700 /uL (1100-4500); Lymphocytes Percent Auto 33.8 % (25-40); Mean Corpuscular HGB Conc 31.9 % (30-36); Mean Corpuscular Hemoglobin 22.8 PG (26-34); Mean Corpuscular Volume 71.5 fL (80-100); Monocytes Absolute Auto 400 /uL (0-900); Monocytes Percent Auto 7.1 % (3-14); Neutrophils Absolute Auto 2800 /uL (1500-7000); Neutrophils Percent Auto 53.7 % (50-75); Platelet Count 231 X10^3/uL (150-400); Red Blood Cell Count 4.92 X10^6/uL (4.0-5.2); Red Cell Distribution Width 19.9 % (11.6-14.8); White Blood Cell Count 5.1 X10^3/uL (4.5-11.0)
[2025-02-20 11:27] LABS: HEMOLYSIS < 15 (0-50); Iron 35 ug/dL (37-170)
[2025-02-20 11:36] LABS: Alanine Aminotransferase 17 IU/L (<35); Albumin 4.4 g/dL (3.5-5.0); Albumin Globulin Ratio 1.7 (1.0-2.8); Alkaline Phosphatase 73 U/L (38-126); Aspartate Aminotransferase 27 IU/L (14-36); BUN Creatinine Ratio 28.1 (6-22); Bilirubin Total 0.9 mg/dL (0.2-1.3); Blood Urea Nitrogen 18 mg/dL (7-17); Calcium 9.4 mg/dL (8.4-10.2); Carbon Dioxide 27 mmol/L (22-32); Chloride 105 mmol/L (98-107); Cholesterol 198 mg/dL (140-199); Estimated Glomerular Filt Rate > 60 mL/min (>60); Globulin 2.6 g/dL (1.7-4.1); Glucose 95 mg/dL (80-110); HDL Cholesterol 100 mg/dL (40-60); HEMOLYSIS < 15 (0-50); LDL Cholesterol Calculated 87 mg/dL (<100); Potassium 4.2 mmol/L (3.4-5.1); Sodium 139 mmol/L (137-145); Triglycerides 53 mg/dL (35-150)
[2025-02-20 11:40] LABS: Percent Iron Saturation 12 % (15-50); Total Iron Binding Capacity 299 ug/dL (265-497); Transferrin 247 mg/dL (206-381)
[2025-02-20 11:46] LABS: Vitamin D 25 Hydroxy (D3) 33.3 ng/mL (30.0-100.0)
[2025-02-20 12:02] LABS: TSH w/ Reflex to FT4 0.54 uIU/mL (0.47-4.68)
[2025-02-20 13:48] LABS: Creatinine Urine Random 131.68 mg/dL
[2025-02-20 13:55] LABS: Microalbumin Urine Random 1.8 mg/dL (0-1.6)
== END ==
PROVIDERS: PCP Family Medicine; Referring Provider Family Medicine; Visit Provider Family Medicine
DX: E78.89 Other lipoprotein metabolism disorders (principal); E03.9 Hypothyroidism, unspecified; E55.9 Vitamin D deficiency, unspecified
CPT/HCPCS: 36415; 80053; 80061; 82043; 82306; 82570; 83540; 83550; 84443; 85025

== ENCOUNTER → 2025-03-23 08:33 | Outpatient (CLI) | payer MEDICARE, SELFPAY ==
[2024-10-17 11:04] VITALS: BMI 35.9
--- NOTE | 2025-03-23 08:34 | DI.RAD.S_ITS ---
PROCEDURE: XR HIP RT 2V INDICATIONS: Right Hip Pain, S/p R WILLIAM TECHNIQUE: 2 views of the hip were acquired. COMPARISON: [facility] [place], [place], XR PELVIS WITH LATERAL HIP LEFT, 12/17/2024, 11:16. FINDINGS: Bones: Total left hip arthroplasty in good position. No hardware failure or loosening. Advanced right hip arthritic changes without flattening the femoral head. Marginal osteophytes noted. Pelvic ring intact Soft tissues: No suspicious soft tissue calcifications or masses. IMPRESSION: Advanced right hip arthritic changes. Approved by: Eb Ritter M.D. on 03/23/2025 at 18:44
== END ==
PROVIDERS: PCP Family Medicine; Referring Provider Orthopaedic Surgery Adult Reconstructive Orthopaedic Surgery; Visit Provider Orthopaedic Surgery Adult Reconstructive Orthopaedic Surgery
DX: Z09 Encounter for follow-up examination after completed treatment for conditions other than malignant neoplasm (principal); Z96.641 Presence of right artificial hip joint
CPT/HCPCS: 73502

== ENCOUNTER → 2025-03-26 08:45 | Outpatient (CLI) | payer MEDICARE, SELFPAY ==
[2024-10-17 11:04] VITALS: BMI 35.9
[2025-03-26 10:13] LABS: Add Manual Diff / Slide Review NO; Basophils Absolute Auto 0 /uL (0-100); Basophils Percent Auto 0.9 % (0-2); Eosinophils Absolute Auto 200 /uL (0-450); Eosinophils Percent Auto 3.3 % (2-4); Hematocrit 38.1 % (36-46); Lymphocytes Absolute Auto 1600 /uL (1100-4500); Lymphocytes Percent Auto 31.8 % (25-40); Mean Corpuscular HGB Conc 31.5 % (30-36); Mean Corpuscular Hemoglobin 23.3 PG (26-34); Mean Corpuscular Volume 73.8 fL (80-100); Monocytes Absolute Auto 400 /uL (0-900); Monocytes Percent Auto 7.5 % (3-14); Neutrophils Absolute Auto 2800 /uL (1500-7000); Neutrophils Percent Auto 56.5 % (50-75); Platelet Count 212 X10^3/uL (150-400); Red Blood Cell Count 5.16 X10^6/uL (4.0-5.2); Red Cell Distribution Width 21.6 % (11.6-14.8)
[2025-03-26 10:43] LABS: Albumin 4.5 g/dL (3.5-5.0); BUN Creatinine Ratio 28.8 (6-22); Blood Urea Nitrogen 19 mg/dL (7-17); Calcium 9.5 mg/dL (8.4-10.2); Carbon Dioxide 28 mmol/L (22-32); Chloride 104 mmol/L (98-107); Estimated Glomerular Filt Rate > 60 mL/min (>60); Glucose 97 mg/dL (70-99); HEMOLYSIS < 15 (0-50); Potassium 4.8 mmol/L (3.4-5.1); Sodium 140 mmol/L (137-145)
[2025-03-26 10:51] LABS: Prealbumin 18.8 mg/dL (17.6-36.0)
[2025-03-26 10:59] LABS: Hemoglobin A1C% w Est Avg Glu 5.4 % (4.0-6.0)
[2025-03-26 11:00] LABS: Vitamin D 25 Hydroxy (D3) 37.4 ng/mL (30.0-100.0)
[2025-03-26 11:15] LABS: Anisocytosis 1+; Ovalocytes 1+
== END ==
PROVIDERS: PCP Family Medicine; Referring Provider Orthopaedic Surgery Adult Reconstructive Orthopaedic Surgery; Visit Provider Orthopaedic Surgery Adult Reconstructive Orthopaedic Surgery
DX: M16.11 Unilateral primary osteoarthritis, right hip (principal); Z78.9 Other specified health status
CPT/HCPCS: 36415; 80048; 82040; 82306; 83036; 84134; 85025

== ENCOUNTER 2025-05-11 06:15 | Day surgery (SDC) | payer MEDICARE, SELFPAY ==
[2024-10-17 11:04] VITALS: BMI 35.9
[2025-05-06 08:29] VITALS: BMI 36.0
[2025-05-11] VITALS (19 sets, daily range): BP systolic 104–136; BP diastolic 43–76; PULSE 61–79; RESP 10–17; TEMP 36.1–36.4; O2SAT 93–99; BMI 36.0
--- NOTE | 2025-05-11 | DI.RAD.S_ITS ---
PROCEDURE: XR HIP W PEL IF DONE RT 2V INDICATIONS: RT TOTAL HIP TECHNIQUE: Four views of the right hip were acquired. COMPARISON: [facility], CR, XR HIP W PEL IF DONE LT 2V, 10/17/2024, 10:24. FINDINGS: Bones: There are no osseous abnormalities. SI and hip joints: Multiple digital intraoperative images show right total hip prosthetic placement. Final image shows the proximal half of the hip prosthesis in anatomic position. Older left hip prostheses also in anatomic position of loosening or infection. Soft tissues: No soft tissue swelling, calcification or mass. IMPRESSION: Right total hip prosthesis in anatomic position. No surgical complication evident Dictated by: Robe Nation M.D. on 05/12/2025 at 10:51 Approved by: Robe Nation M.D. on 05/12/2025 at 10:52
--- NOTE | 2025-05-11 06:30 | DI.RAD.S_ITS ---
PROCEDURE: XR HIP W PEL IF DONE RT 2V INDICATIONS: WILLIAM TECHNIQUE: 2 views of the hip were acquired. COMPARISON: [facility], CR, XR PELVIS 1-2V, 04/30/2025, 10:49. [facility], CR, XR HIP W PEL RT 2V, 05/11/2025, 9:11. [facility], CR, XR HIP W PEL IF DONE LT 2V, 10/17/2024, 10:24. FINDINGS AND IMPRESSION: Similar appearance of the left hip arthroplasty. Interval right hip arthroplasty in expected position. Calcific tendinopathy. Postsurgical soft tissue changes. Dictated by: Dallin Cortes M.D. on 05/11/2025 at 11:26 Approved by: Dallin Cortes M.D. on 05/11/2025 at 11:26
[2025-05-11] MEDS: ACETAMINOPHEN 325 MG TABLET 975 MG PO (06:59)
[2025-05-11] MEDS: MELOXICAM 7.5 MG TABLET PO (07:00)
[2025-05-11] MEDS: SCOPOLAMINE 1 PATCH TOP (07:34)
--- NOTE | 2025-05-11 07:39 | PM.PREOP ---
Pre-operative Note Interval Note History & Physical reviewed/Exam performed by Physician: Yes Changes to H&P: No
[2025-05-11] MEDS: CEFAZOLIN 2 GM/100 ML PREMIX 100 ML IV ×3 (07:58→23:19)
[2025-05-11] MEDS: TRANEXAMIC ACID 1,000 MG VIAL 1000 MG INJ ×2 (08:09→09:54)
--- NOTE | 2025-05-11 08:43 | SUR.OPER ---
Patient supine on padded Clark table, both arms on padded arm board at <90, both legs secured in padded traction boots and positioned per surgeon, padded post at patient's groin, pressure points checked and padded. Dr. Cantu in room at time of positioned and approved of final position. Gel pad placed on boomerrang to pad skin
[2025-05-11] MEDS: ROPIVACAINE/EPI/CLONIDINE/KET 50 ML SYRINGE INJ (08:50)
[2025-05-11] MEDS: LACTATED RINGERS 1,000 ML 42 ML IV ×2 (09:29→11:31)
--- NOTE | 2025-05-11 10:07 | P.OP_ITS ---
Operative Date/Time/Diagnoses Date of procedure: 05/11/25 Time of procedure: 07:45 Pre-op diagnosis: Right hip osteoarthritis Post-op diagnosis: same Procedure & Clinicians Procedure: Right total hip arthroplasty Same procedure(s) as scheduled: Yes Surgeon: Eb Cantu Public Stenographer: Nicky Collins Anesthesia Type: Spinal, Sedation and Local Operative Notes Findings: Right hip arthritis Applied: implant(s) Estimated Blood Loss (mL): 400 Procedure in detail: Right Uncemented Direct Anterior Depuy Total Hip Arthroplasty: Implants: * [place] Gription size 54 cup?with 2 screws * Actis femoral stem size 6 high offset? * 36 mm +1.5 ceramic femoral head? Procedure Summary: This 69-year-old female patient had previously undergone a left total hip arthroplasty performed by myself approximately 7 months ago. She is recovered well from that side and returned today for her right hip. I had intentionally slightly lengthened her left side during the prior surgery. On templating imaging prior to today's surgery it appeared that a standard offset neck and a +5 head would most appropriately restore leg length and offset however on the other side she had gotten a high offset and a +1.5 head. I noted that on her preoperative templated imaging she was standing with the operative side adducted and the nonoperative side abducted and presumed that this had altered the angles on the imaging enough to have skewed the templating. I therefore initially trialed with the same construct that had been used on the contralateral side, a high offset neck and a +5 head. This was appropriate on all trialed parameters so those definitive implants were used. Procedure in Detail: This patient was seen preoperatively and evaluated for hip pain which was refractory to numerous nonoperative treatment modalities. Their hip pain correlated with radiographic changes demonstrating significant degeneration in the hip joint. The risks and benefits of continued nonoperative management versus operative management were discussed at length and all of the patient?s questions were answered. Additional educational materials providing further details beyond our discussion in clinic were provided via a publicly available patient education video which included the incidence of medical complications associated with total hip arthroplasty, reasons for revision following total hip arthroplasty, and patient satisfaction rates following total hip arthroplasty. With this understanding of the risks inherent to the procedure, the patient elected to move forward with operative management. Following preoperative optimization, the patient was scheduled for surgery. The patient was met in the preoperative holding area the day of the procedure and all questions were answered. The patient?s nares were swabbed in order to decolonize them from MRSA. Informed consent was signed and the right limb was marked with indelible ink.? The patient was brought back to the operating room where anesthesia was induced. The patient was transferred to the [place] table and all bony prominences were padded. The operative site was prepped and draped in the usual sterile fashion. Prior to incision, tranexamic acid and cefazolin were administered. Operative templating images were displayed demonstrating the anticipated implant sizes and correct operative extremity. A timeout procedure was performed verifying the patient?s identity, medical comorbidities, allergies, relevant medications, anesthesia type and the surgical plan. All present were in agreement. The assistance of a physician shipping assistant was required for positioning, room setup, soft tissue retraction and wound closure. Without this assistance, the procedure would have been significantly more challenging and time consuming.?? A direct anterior approach to the hip was utilized. This was performed with a longitudinal incision through a Heuter interval. The incision was planned 2 cm distal and 2 cm lateral to the ASIS extending towards the lateral patella, in line with the muscle body of the TFL. Following incision, the subcutaneous tissue was dissected while taking care to avoid injury to the lateral femoral cutaneous nerve. The fascia overlying the TFL was identified by dissecting off the overlying fat and identifying perforating vessels to the TFL. The TFL fascia was incised and dissected away from the medial border of the TFL. A retractor was placed over the superior femoral neck between the abductors and the hip capsule and used to reflect the TFL laterally. A [place] self-retainer was then placed in the distal aspect of the wound between the TFL and the rectus femoris. This was tensioned to open up the direct anterior interval and the lateral circumflex vessels were identified and coagulated using electrocautery. The floor of the TFL fascia was incised, exposing the pericapsular fat overlying the hip capsule. A second cobra retractor was placed on the inferior femoral neck. A retractor was placed on the anterior wall of the acetabulum and used to tension the reflected head of rectus femoris, which was then released in order to limit soft tissue tension. A capsulotomy was made in the midline of the anterior hip capsule in line with the femoral neck ending at the vastus tubercle. The anterior retractor was removed as soon as the capsulotomy was completed in order to limit the amount of time that a soft tissue retractor remained on the anterior wall and limit tension on the femoral nerve. Tag stitches were placed in the superior and inferior leaflets of the hip capsule. An [place] soft tissue retractor was introduced over the tag stitches and tensioned in the interval between the rectus femoris and the TFL in order to retract and protect those muscles. The cobra retractors were replaced intracapsularly, with one over the superior neck in the pocket created by the base of the greater trochanter and the other on the femoral head. The capsulotomy was extended laterally to the base of the greater trochanter and medially to the lesser trochanter. This required externally rotating the hip. Once the lesser trochanter had been identified, a neck cut was planned according to measurements from preoperative templating. A ruler was cut at the length measured between the superior aspect of the lesser trochanter and the collar of the prosthesis. This line was extended towards the inferior aspect of the lateral cobra retractor to plan a cut which would leave minimal residual femoral neck laterally. The neck was cut at 60 degrees of external rotation along that line. A second cut was performed to remove a large napkin ring and facilitate head extraction. The napkin ring cut and femoral head were removed.?? A broad anterior wall retractor was placed between the labrum and the anterior capsule so that the anterior capsule would prevent capturing and pinching the femoral nerve anteriorly. An additional retractor was placed on the posterior wall. External rotation and traction were applied through the [place] table so that the cut surface of the femoral neck would not restrict access to the acetabulum. The labrum was excised sharply and the pulvinar was excised with electrocautery to limit bleeding from branches of the obturator artery. Acetabular reamers were selected based on preoperative templating and measurements of the excised femoral head. These were introduced into the acetabulum. Fluoroscopy was utilized to replicate a standing AP pelvis radiograph by centering over the pelvis, rotating until there was appropriate symmetry between the obturator foramen, and introducing caudal tilt to match the position of the pubic symphysis relative to the sacrococcygeal junction according to the patient?s anatomy. Once satisfied with the reaming depth corresponding to the preoperative template and the pinch fit between the columns, an appropriate sized acetabular cup was selected which would provide 1 mm of press-fit. This cup was introduced and manipulated until appropriate abduction and anteversion angles were obtained with careful attention to appropriate abduction and anteversion angles as evaluated by the position of the cup relative to the anterior and posterior bailey of the acetabulum and the AP fluoroscopy which recreated the patient?s standing radiograph. The cup was impacted into place. Two screws were placed to provide additional fixation. Peripheral osteophytes were removed. The acetabular liner was then placed with care to ensure locking of the locking mechanism. Attention was then turned to the femur. All retractors were removed, traction was released, a retractor was placed in the interval between the hip capsule and the gluteus minimus. The lateral capsule was released using electrocautery. Traction was released and a [place] hook was placed posteriorly around the proximal femur at the level of the vastus ridge. The table height was lowered in order to restrict the tension on the anterior structures during hip hyperextension to limit the risk of femoral nerve palsy. With traction off and the hip at 90 degrees of external rotation, the hip was hyperextended and adducted while manually elevating the femur away from the acetabulum with the [place] hook to avoid hooking the greater trochanter on the pelvis. An asymmetric retractor was placed over the calcar and a broad double-pronged retractor was placed over the greater trochanter. The tag stitch capturing the lateral leaflet of the capsule was moved to the medial side, leaving the conjoined and piriformis tendons isolated in the face of the greater trochanter. The hip was externally rotated and elevated. A release of the conjoined tendon was necessary in order to obtain adequate exposure for broaching. The canal was opened with an opening broach and a rasp was used to remove cancellous bone. A rongeur was used to remove the residual lateral bone at the base of the greater trochanter to avoid placing the stem in varus. The femur was then broached to the appropriate sized stem yielding good rotational fit and fill of the canal as well as appropriate version of the stem trial. Neck and head trials were placed, all retractors were removed and the hip was returned to neutral abduction and extension. I then reduced the hip and manually trialed it before changing surgical gloves. Initial trialing was performed with a size 6 broach, a high offset neck and a +5 head. I initially manually externally rotated the hip and found that I could not manually dislocate it. I then locked the hip in 45 degrees of external rotation and dropped it to the floor with traction off which demonstrated no instability. An AP pelvis fluoroscopic image matching the preoperative standing radiograph with both lesser trochanters visible and both hips in 40 degrees of external rotation demonstrated appropriate leg length and offset compared to the contralateral side. AP and lateral hip fluoroscopic images were obtained to evaluate the broach size which demonstrated good canal fill. The hip was dislocated and I returned to the broaching position. Based on my evaluation during initial trialing I planned to place these definitive implants. The definitive stem was placed and the trunnion was cleaned and dried. I placed a ceramic head onto the trunnion and impacted it into place on the [place] taper.?? All retractors were removed and the hip was reduced. A dilute mixture of betadine and peroxide was used to bathe the soft tissues during final fluoroscopic assessment. Appropriate component positioning was confirmed on an AP pelvis radiograph with the operative and nonoperative legs in 40 degrees of external rotation, evaluating leg length and offset. Appropriate stem fill was evaluated on AP and lateral hip radiographs. No previously unrecognized fractures were identified on these radiographs. There was no hip instability with maximum (110?) external rotation as well as a 45 degree drop test. The hip was copiously irrigated with pulse lavage. The capsule was closed with absorbable interrupted suture. The TFL fascia was closed with barbed suture while carefully protecting the lateral femoral cutaneous nerve from entrapment. A mixture of Ropivacaine, Epinephrine and Toradol was infiltrated throughout the soft tissues. The skin was closed with 2-0 and 3-0 sutures. Surgical glue was applied and a soft dressing was placed.??The sponge, instrument and needle counts were reported as being correct at the end of the case.??No obvious complications occurred. The patient was transferred from the [place] table back to a stretcher. The patient emerged from anesthesia without difficulty and was taken to the PACU in a stable condition.? Plan for aftercare: * No hip precautions * Weightbearing as tolerated * Aspirin 81 twice per day for DVT prophylaxis * Anticipate discharge home tomorrow * Multimodal pain regimen with no IV opioids ordered * Follow up at [facility] in 2 weeks Complications: none Post-operative Disposition: PACU
[2025-05-11] MEDS: HYDROMORPHONE 1 MG INJ IV ×2 (11:00→11:08)
[2025-05-11] MEDS: OXYCODONE IR 5 MG TABLET PO (11:07)
[2025-05-11] MEDS: ONDANSETRON 4 MG/2 ML INJ IV (11:16)
[2025-05-11] MEDS: ACETAMINOPHEN 325 MG TABLET 650 MG PO ×2 (13:33→19:14)
[2025-05-11] MEDS: DEXAMETHASONE 10 MG/ML VIAL IV (13:33)
[2025-05-11] MEDS: LACTATED RINGERS 1,000 ML 100 ML IV (13:33)
--- NOTE | 2025-05-11 16:13 | PT.IIE ---
Current Diagnoses Unilateral primary osteoarthritis, right hip (05/11/25) Surgery Performed Operation Date: 05/11/25 07:45 Actual Procedures p Total Hip Arthroplasty/Anterior Approach(Right) - Eb Cantu MD Surgical History (Last Updated 05/06/25 @ 08:41 by Yesenia Monroe RN) H/O knee surgery H/O knee surgery History of ankle surgery (~2003) History of total left knee replacement (03/27/18) Hx of colonoscopy (09/17/20) S/P total left hip arthroplasty (10/17/24) Medical History (Last Updated 03/24/25 @ 16:25 by Eb Cantu MD) Anesthesia complication Ankle fracture, left Arthritis At average risk for colon cancer Bilateral hip pain Bilateral primary osteoarthritis of hip Depression Elevated HDL Heartburn History of COVID-19 (08/22/24) History of urinary frequency Hypothyroidism Knee pain, bilateral Menopause Pain of right heel Pneumonia Primary osteoarthritis of right hip Screening for malignant neoplasm of breast Screening for malignant neoplasm of colon Urinary urgency Vision impairment Vitamin D deficiency Physical Therapy Inpatient Evaluation/Re-Eval M1 PT/OT-IP Prior Functional Status Start: 05/11/25 15:48 Freq: NEEDED Status: Active Protocol: Document 05/11/25 15:49 GG (Rec: 05/11/25 16:11 GG [id number]) Medical Review Prior Functional Status Medical History Yes Reviewed Diet/Fluid Regular Consistency Communication WNL Mobility and Gait no AD Activities of Daily indep w/ ADLs, helps w/ cooking/cleaning Living and IADL's Social History Household Members spouse Living Arrangements House Number of Floors ( Two Floors Floors) Number of Stairs To 3 steps to enter B rails, 15 steps inside railing on R Enter/Railing? (when ascending) Home Environment Standard Height Toilet,Walk in Shower,Built-In Shower Seat Home Equipment Front Wheel Walker,Straight Cane,Grab Bars In Shower Employment Status Retired Additional Social 1st week home at friends house (2 caretakers): no History Comment stairs for entry or indoors, walk-in shower, toilet riser, edu to get shower bench M2 PT-IP Current Condition Start: 05/11/25 15:48 Freq: NEEDED Status: Active Protocol: Document 05/11/25 15:49 GG (Rec: 05/11/25 16:11 DANY [id number]) Physical Therapy Current Condition Current Condition Evaluation Date 05/11/25 Treatment Diagnosis R anterior WILLIAM M3 PT-IP Subjective Start: 05/11/25 15:48 Freq: NEEDED Status: Active Protocol: Document 05/11/25 15:49 GG (Rec: 05/11/25 16:11 GG [id number]) Subjective Physical Therapy Visit Type Type Initial Evaluation Visit Start Time 13:55 Visit Stop Time 14:32 Number of AIRPLANE AND ENGINE INSPECTOR Visits 0 Physical Therapy Visit Comments Patient Comments Pt agreeable to get up Patient Goals go home tomorrow M4 PT-IP Mobility and Gait Start: 05/11/25 15:48 Freq: NEEDED Status: Active Protocol: Document 05/11/25 15:49 GG (Rec: 05/11/25 16:11 DANY [id number]) PT-Bed Mobility Assessment Rolling Level of Assist Independent Supine to Sit Supine to Sit Independent Scooting Scooting to Edge of Independent Bed PT-Transfer Assessment Sit to and From Stand Sit to and from Standby Assistance,Use of Upper Extremities Stand Equipment Transfer Assistive Gait Belt,Front Wheeled Walker Device Orthotic/Prosthetic No Devices or Brace: Comments Mobility Comments BP supine: 126/62, sittin/50 pt reports no symptoms. independent supine to sitting and sliding to EOB. indep w/ sliding shoes on. STS cued for hand placement w/ gait belt SBA. ambulated to bathroom w/ FWW and CGA. independent w/ sitting to toilet and wiping, monitored for symptoms. indep in standing from toilet using grab bar. indep w/ putting on underwear and sitting into chair. walked 3 laps arounds room w/ CGA and FWW, no symptoms. Gait Assessment Gait Gait Assistance Contact Guard Assist Required: Distance (Feet) 75 Able to Maintain Yes Weight Bearing Status During Gait Assistive Devices Assistive Device Front Wheeled Walker Orthotic/Prosthetic No Devices or Brace: M6 PT-IP Treatment Start: 05/11/25 15:48 Freq: NEEDED Status: Active Protocol: Document 05/11/25 15:49 GG (Rec: 05/11/25 16:11 DANY [id number]) Physical Therapy Treatment Education Education Provided Precautions,Weight Bearing Status,Post-Op Packet,Safety M7 PT-IP Assessment and Plan Start: 06/23/25 15:48 Freq: NEEDED Status: Active Protocol: Document 05/11/25 15:49 GG (Rec: 05/11/25 16:11 GG [id number]) PT Summary Assessment and Plan Potential Rehabilitation Good Potential Status of Condition Evolving at Evaluation Summary Impairments Pain,ROM,Strength,Balance,Coordination,Gait,Activity Tolerance Assessment Summary Pt presents day 1 s/p R ant WILLIAM w/ good pain control and planning for home D/C. She was able to mobilize w/ CGA/SBA w/ cueing for movement patterns. is supportive and pt demonstrates good understanding of recovery process. Pt would benefit from PT to improve impairments listed above and safely return home. Goals Bed Mobility Goal Independent Transfer Goal Independent,Front Wheeled Walker Gait Goal Independent,Front Wheel Walker Gait Distance 100 ft Days to Meet Goals 5 Frequency of Treatment Frequency Of Twice a Day Treatment Treatment Plan Physical Therapy Bed Mobility Training,Transfer Training,Gait Training, Treatment Plan Therapeutic Exercise,Balance Retraining,Post Op Education,Discharge Planning,Neuromuscular Re-ed,Manual Therapy Other go over stairs, review getting into bed Recommendations and Next Treatment Focus Weight Bearing Status Weight Bearing Weight Bear as Tolerated Status Recommendations To Nursing Amount of Assist Standby Assistance Needed Discharge Recommendations PT Discharge Home with Assistance,Outpatient PT Recommendations Transportation Needs Private Vehicle at Discharge - PT assist 1
[2025-05-11] MEDS: DOCUSATE 100 MG CAPSULE PO (20:32)
[2025-05-11] MEDS: TRAZODONE 50 MG TABLET PO (20:33)
[2025-05-11] MEDS: ASPIRIN EC 81 MG TABLET PO (20:33)
[2025-05-12] MEDS: ACETAMINOPHEN 325 MG TABLET 650 MG PO ×2 (00:18→05:57)
--- NOTE | 2025-05-12 05:32 | PC.NURSE ---
Pt IVF were discontinue around midnight, Pt voiding in the bathroom adquatetly, ambulating in the hallway and using tylenol 650 mg every 6 hours for pain management.
[2025-05-12] MEDS: TRAMADOL 50 MG TABLET PO ×2 (05:56→11:16)
[2025-05-12] MEDS: LEVOTHYROXINE 88 MCG TABLET PO (05:57)
[2025-05-12 06:15] LABS: Hematocrit 30.1 % (36-46); Hemoglobin 9.9 g/dL (12.0-16.0)
[2025-05-12 08:00] VITALS: BP 105/51; PULSE 87; RESP 16; TEMP 36.3; O2SAT 99
[2025-05-12] MEDS: ASPIRIN EC 81 MG TABLET PO (08:47)
[2025-05-12] MEDS: MELOXICAM 7.5 MG TABLET 15 MG PO (08:47)
[2025-05-12] MEDS: ASCORBIC ACID 500 MG TABLET 1000 MG PO (08:47)
[2025-05-12] MEDS: FLUoxetine 20 MG CAPSULE PO (08:47)
[2025-05-12] MEDS: CHOLECALCIFEROL (VITAMIN D3) 1,000 UNIT TABLET 1000 UNIT PO (08:47)
[2025-05-12] MEDS: DOCUSATE 100 MG CAPSULE PO (08:47)
--- NOTE | 2025-05-12 08:56 | P.DS_ITS ---
History of Present Illness History of Present Illness Chief complaint: R WILLIAM anterior Narrative: Kailyn is a very pleasant 69 year old female who is POD#1 s/p R anterior WILLIAM by Dr. Cantu. This morning she is awake and alert. She endorses a slight increase in pain today from yesterday which she attributes to the local anesthetic wearing off. Overall she reports she is doing well and feels ready to d/c today. She has been walking the halls of the hospital w/o assistance. She worked w/ PT yesterday but not yet today. She has all of her post-op pain medications at home already. She has been urinating w/o issue. She lives at home w/ her who will aid in her post-op care. Denies any current nausea, vomitting, SOB. Discharge Providers Provider Discharge Date: 05/12/25 Primary care physician: Alex Michel MD Consults: 05/11/25 06:30 Consult to Anesthesiology Routine Comment: Consulting Provider: Anesthesiologist Reason for consultation: Regional block for post operative pain control 05/11/25 11:56 Consult to Discharge Planning Routine Comment: Consult to Physical Therapy Evaluate & Treat Comment: Physician Instructions: post op WILLIAM protocol Discharge provider: Nicky Collins PA-C Summary Hospital Course Discharge Diagnosis: stable s/p R WILLIAM Hospital Course: Uncomplicated hospital course Status at Discharge Cognitive/behavioral status at discharge: oriented Functional status at discharge: uses cane/walker Exam Vital Signs (past 8 hours): Oxygen Delivery Method Room Air Oxygen Flow Rate 0 Narrative Exam Narrative: Kailyn is alert, awake and oriented this morning. Sitting up comfortably in bed. Calf is soft and compressible w/o tenderness. 5/5 strength w/ DF, PF, EHL. SILT throughout the RLE. Post-surgical Aquacel dressing is CDI. Resp Effort & Inspection: normal respiratory effort and able to speak in complete sentences Objective Labs 05/12/25 05:50 Labs: Laboratory Results - last 24 hr 05/12/25 05:50 Hgb 9.9 L Hct 30.1 L PFSH Medical History (Updated 03/24/25 @ 16:25 by Eb Cantu MD) Primary osteoarthritis of right hip Anesthesia complication History of COVID-19 (08/22/24) Bilateral primary osteoarthritis of hip Pain of right heel Elevated HDL Bilateral hip pain At average risk for colon cancer Screening for malignant neoplasm of breast Screening for malignant neoplasm of colon Vitamin D deficiency Menopause Vision impairment Urinary urgency History of urinary frequency Heartburn Arthritis Pneumonia Ankle fracture, left Depression Hypothyroidism Knee pain, bilateral Surgical History (Updated 05/06/25 @ 08:41 by Yesenia Monroe RN) 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 2) Continue multimodal pain management w/ ice to the hip for additional pain control. Patient has post-op meds at home already. 3) ASA BID for DVT prophylaxis for 30 days. 4) WBAT, anterior hip precautions. Work w/ outpatient PT to improve mobility. 5) Keep dressing clean dry and intact for 2 weeks. NO soaking the incision site in pools or tubs. We will remove the dressing in office at your 2 week post-op appointment. Follow up w/ our office in 2 weeks for post-op visit and wound check. Call our office ([facility]) if any questions or concerns arise. Discharge Plan Discharge Plan Patient Disposition: Home Discharge orders & Medications Discharge Orders: Discharge (Order); Ordered 05/12/25 Ordered By: Nicky Collins Prescriptions: New aspirin 81 mg Tablet,Delayed Release (Dr/Ec) 81 mg PO BID 30 Days Qty: 60 0RF docusate sodium 100 mg Capsule 100 mg PO BID Qty: 30 0RF ondansetron 4 mg Tablet,Disintegrating 4 mg PO Q4-8H PRN (Reason: Nausea) Qty: 10 0RF Continued trazodone 50 mg tablet See Rx Instructions .ROUTE .COMPLEX Qty: 90 1RF Dose Instruction: TAKE 1 TABLET BY MOUTH AT BEDTIME Rx Instructions: TAKE 1 TABLET BY MOUTH AT BEDTIME levothyroxine 88 mcg tablet 88 mcg PO DAILY Qty: 90 1RF fluoxetine 60 mg tablet See Rx Instructions .ROUTE .COMPLEX Qty: 90 0RF Dose Instruction: TAKE 1 TABLET BY MOUTH DAILY Rx Instructions: TAKE 1 TABLET BY MOUTH DAILY cholecalciferol (vitamin D3) 25 mcg (1,000 unit) capsule 1,000 unit PO DAILY vitamin B complex Tablet 1 tab PO DAILY acetaminophen 500 mg Tablet 1,000 mg PO Q6H meloxicam 15 mg tablet 15 mg PO DAILY ascorbic acid (vitamin C) 1,000 mg capsule 1 g PO DAILY ondansetron 4 mg tablet,disintegrating 4 mg PO Q8H PRN (Reason: nausea and vomiting) Qty: 7 0RF Discontinued ibuprofen 200 mg Tablet 400 mg PO DAILY Follow up/Referrals: Alex Michel MD [Primary Care Provider, Family Practice] Eb Cantu MD [Physician, Orthopedic Surgery] Diet/Activity/Treatments Diet: Low-sodium Activity: WBAT, maintain anterior hip precautions. Work w/ outpatient PT to improve mobility and safe ambulation. Cold/Heat Therapy: Ice to the hip for additional pain control. Skin/Wound/Dressing Care Report to your healthcare provider any signs of infection, such as:: chills, fever, night sweats, unusual drainage and unusual redness Dressing: Keep dressing intact, clean and dry until 2 week post-op appointment. No soaking the incision site in pools or tubs. No topical ointments or creams to the incision site. Visit Report/Discharge Packet Instructions: DI for Hip Replacement, DI for Prescription Opioid Use Stand Alone Forms: Patient Portal/API Print Language: Turkmen Discharge Data Primary Care Provider: Alex Michel Attending Provider: Eb Cantu Quality VTE Deep Vein Thrombosis/Pulmonary Embolism Present on Admission: No IH PROFEE Charge Codes Discharge inpatient/observation: 77586
--- NOTE | 2025-05-12 09:34 | CM.DANOTE ---
B DCP Assessment Note pt is a 69yo F POD1 right total hip. PCP Dominic Michel Payer [facility] and self pay SPOT BILLING CLERK reviewed EMR. per chart, pt lives with spouse in [place]. has a FWW/cane. spouse can assist at home. PT=home with assistance. PA dc summary reports pt has been ambulating in halls without assistance. per chart review, no CM needs identified at this time. P: home today with spouse to assist and OP f/u. CM team will continue to follow as needed in case any DCP needs should arise MARVIN Mcghee Discharge Planning/Care Management CM Discharge Assessment Start: 05/11/25 06:31 Freq: Status: Active Protocol: Document 05/12/25 09:32 SL (Rec: 05/12/25 09:34 SL Desktop) Discharge Planning Assessment Assigned Discharge MARVIN Cornell Multimedia Engineer DPOA/Assigned Feliz, spouse Designee Name Contact Information [phone] Advance Directives? Yes Advance Directives No on File History Provided By Patient,Significant Other,Medical Record Prior Living House Arrangements Household Members spouse Type of Drives own vehicle transporation used prior to admit Independent with ADL Yes 's Is patient alert and Yes oriented? Patient/Family OP PT Therapy Preference Discharge Plan Home Transportation spouse in POV Arrangement Referrals Initiated None needed Review Status In Process Please Provide Date 05/12/25 Initial DC Assessment Was Performed Next Review Type Continued Stay Review Pre-Anesthesia Assessment Start: 05/06/25 08:29 Freq: Status: Active Protocol: Document 05/06/25 08:29 LB (Rec: 05/06/25 09:13 LB [id number]) Pre-Anesthesia Assessment PAC Comment 05/06/25 Phone assessment. Patient Information Phone Assessment Reviewed Via Assessment Completed Patient With Diagnostic Results BMP/CMP,CBC Comment 03/26/25 at . Primary Care Alex Michel Provider Specialist Seen Orthopedist Primary Language Bulgarian Preferred Language Bulgarian Studio Coordinator Required No Height 170.18 cm Weight 104.326 kg Body Mass Index (BMI 36.0 ) Hearing Ability Normal Visual Impairment No Limitations Dentition Type Teeth, Natural Present Hx Anesthesia Yes: Nausea, hypotension (SBP 80's). Reactions Hx Family Anesthesia Yes: Sister-PONV Reaction Hx Malignant No Hyperthermia Hx Blood No Transfusions Anesthesia Review No Requested Teacher Of Family And Consumer Science No alcohol intake current alcohol intake holidays/special occasions only frequency Smoking Status Former smoker Tobacco type cigarettes how long ago did Quit 1982. patient quit smoking Substance Use Type [ does not use #R] Pain Present Pain Reported Comment Right hip. Musculoskeletal Abnormal Gait,Joint Pain Symptoms History of Falling ( Yes Recent or History of ) Patient is No completely paralyzed or completely immobile Prosthesis or Cane,Front Wheel Walker Orthotic Device Mental Status Oriented to own ability Comment Will bring walker. Is patient on oxygen No ? Does patient have No BLANK/SOB Hx Sleep Apnea No Currently Taking a No Beta Jai Can You Climb a Yes Flight of Stairs Without SOB Hx Chest Pain No Hx SOB No Hx Syncope or No Dizziness Anti-Coagulant No Therapy Cardiac Testing No Hx Pacemaker/ICD No Diet Type At Home Regular Dysphagia No Gastrointestinal Constipation Symptoms Bladder Pattern Frequency,Incontinent,Urgency Hx Urinary Self No Catheterization Diabetes No Patient No Lactating No Hx Drug Resistant No Organism Presence of External Yes: Left TKA, left ankle, left WILLIAM. or Internal Medical Devices Have you had any No close contact with someone diagnosed with COVID-19? Are you experiencing No symptoms any of these symptoms? Received a COVID Yes vaccine? Comment Denies covid last 8 weeks. Marital Status Lives With spouse Number of Floors ( Two Floors Floors) Support System Friend(s),Spouse Does the Patient Yes Have Assistance After Surgery Patient Discharge Other Plan Description Comment Pt requests overnight LOS. Additional comment Will be staying with a friend who has no stairs. Feels Safe in No Current Environment Do you have a plan No Plan to hurt yourself or others? Do You Have Any No Spiritual Beliefs That May Affect Your HC Choices? Do You Have Any No Cultural Practices That May Affect Your HC Choices? Comment [facility] Emergency Contact Feliz Thacker () Name Emergency Contact [phone] or cell: [phone] Phone Number Advance Directives? Yes Advance Directives No on File Power of Ladle Car Operator Yes Power of Ladle Car Operator Feliz Thacker - Name Power of Ladle Car Operator [phone] or cell: [phone] Phone Number PAC Instructions Assistance for 24 hours post-op,Do not shave/clip surgical site,Durable medical equipment,Medications to take/avoid,Nasal antibiotic,No ETOH/petroleum product on skin DOS,NPO,Post-op transportation,Pre-surgical wash,Sturdy shoes/comfortable clothes,Do not bring valuables and remove jewelry
--- NOTE | 2025-05-12 10:05 | PT.IPTN ---
Current Diagnoses Unilateral primary osteoarthritis, right hip (05/11/25) Surgery Performed Operation Date: 05/11/25 07:45 Actual Procedures p Total Hip Arthroplasty/Anterior Approach(Right) - Eb Cantu MD Physical Therapy Treatment Note M2 PT-IP Current Condition Start: 05/11/25 15:48 Freq: NEEDED Status: Active Protocol: Document 05/11/25 15:49 GG (Rec: 05/11/25 16:11 GG [id number]) Physical Therapy Current Condition Current Condition Evaluation Date 05/11/25 Treatment Diagnosis R anterior WILLIAM M3 PT-IP Subjective Start: 05/11/25 15:48 Freq: NEEDED Status: Active Protocol: Document 05/12/25 10:05 AB (Rec: 05/12/25 12:25 AB [id number]) Subjective Physical Therapy Visit Type Type Treatment Note Visit Start Time 10:05 Visit Stop Time 10:15 Number of TELEPHONE ORDER SUPERVISOR Visits 10 Physical Therapy Visit Comments Patient Comments agreeable to do PT M4 PT-IP Mobility and Gait Start: 05/11/25 15:48 Freq: NEEDED Status: Active Protocol: Document 05/12/25 10:05 AB (Rec: 05/12/25 12:25 AB [id number]) PT-Bed Mobility Assessment Supine to Sit Supine to Sit Independent,Standby Assistance Sit to Supine Sit to Supine Standby Assistance PT-Transfer Assessment Sit to and From Stand Sit to and from Standby Assistance,Use of Upper Extremities Stand Equipment Transfer Assistive Gait Belt,Front Wheeled Walker Device Orthotic/Prosthetic No Devices or Brace: Transfers Transfer Destination Bed,Chair Transfer Technique ambulated Transfer Ability Level of Assist Standby Assistance,1 Person Assistance,Use of Upper Extremities Comments Mobility Comments pt sitting on the chair and spouse in room. pt agreeable to do PT. sit to stand from the chair SBA and ambulated to EOB ~ 12 ft using FWW SBA. completed bed mobility SBA. sit to stand from EOB SBA and ambulated in the hallway using FWW ~ 250 ft SBA. pt ambulated back to her room and sat on the chair. positioned pt on the chair. call light and table placed within reach. pt and spouse without further concerns. pt plans to go home to her friends house where there are no steps for her to maneuver. Gait Assessment Gait Gait Assistance Standby Assistance Required: Distance (Feet) 250 Able to Maintain Yes Weight Bearing Status During Gait Assistive Devices Assistive Device Gait Belt,Front Wheeled Walker Orthotic/Prosthetic No Devices or Brace: Gait Deviations General Gait Pattern Decreased Stride Length,Decreased Feet Clearance Factors Limiting Gait Function Factors Limiting Decreased Activity Tolerance,Decreased Strength,Limited Gait Function Range of Motion,Pain,Poor Balance M6 PT-IP Treatment Start: 05/11/25 15:48 Freq: NEEDED Status: Active Protocol: Document 05/12/25 10:05 AB (Rec: 05/12/25 12:25 AB [id number]) Physical Therapy Treatment Education Education Provided Safety M7 PT-IP Assessment and Plan Start: 05/11/25 15:48 Freq: NEEDED Status: Active Protocol: Document 05/12/25 10:05 AB (Rec: 05/12/25 12:25 AB [id number]) PT Summary Assessment and Plan Potential Rehabilitation Fair Potential Summary Impairments Pain,ROM,Strength,Balance,Coordination,Sensation,Tone, Cognition,Bed Mobility,Transfers,Gait,Activity Tolerance Progress Towards Progressing Toward Goals Goals Assessment Summary pt progressing with mobility and requiring SBA using FWW for transfers and ambulation. pt will be staying at her friend's house upon d/c where there are no steps . pt spouse will be able to assist pt. pt has outpt PT set up. pt plans to go home today. Goals Bed Mobility Goal Independent Transfer Goal Independent,Front Wheeled Walker Gait Goal Independent,Front Wheel Walker Gait Distance 100 ft Days to Meet Goals 5 Frequency of Treatment Frequency Of Twice a Day Treatment Treatment Plan Physical Therapy Bed Mobility Training,Transfer Training,Gait Training, Treatment Plan Therapeutic Exercise,Balance Retraining,Post Op Education,Discharge Planning,Neuromuscular Re-ed,Manual Therapy Weight Bearing Status Weight Bearing Weight Bear as Tolerated Status Allowed Weight RLE WBAT Bearing Amount ( enter % or #) (%) Recommendations To Nursing Amount of Assist Standby Assistance Needed Discharge Recommendations PT Discharge Home with Assistance,Outpatient PT Recommendations Transportation Needs Private Vehicle at Discharge - PT assist 1
--- NOTE | 2025-05-12 10:07 | PC.NURSE ---
Patient denies discomfort to r.hip, aquacel dressing is cdi. She is ambulating independently with walker and doing well. Patient will be discharged after lunch. Dr. Cantu will be into see her around noon.
--- NOTE | 2025-05-12 10:42 | P.DS_ITS ---
History of Present Illness History of Present Illness Chief complaint: R WILLIAM anterior Narrative: PATIENT SUMMARY The patient is here for a postoperative evaluation on day one after undergoing an anterior total hip arthroplasty on the right hip. PAST SURGICAL HISTORY - Anterior total hip arthroplasty on the right hip performed by me without complications. SUBJECTIVE The patient reports that the physical therapy session went well and she completed four loops today. She notes that the pain relief from Tylenol has worn off by about 4 PM, so she took tramadol, which she has from a previous prescription. The patient shares a family history of hip issues, mentioning two cousins who also required hip surgeries and an uncle who had a bad hip but never had surgery. She inquires about driving and swimming post-surgery. Additionally, she discusses needing dental work and agrees to postpone it for six months to avoid complications. PHYSICAL EXAM Constitutional: The patient appears alert and oriented. Musculoskeletal: Examination of the right hip shows ecchymosis around the surgical site with no strikethrough on the dressing. The patient has an ice machine in place. The plantar and dorsiflexion of the hallux and ankle are intact, with intact femoral nerve function as evidenced by quadriceps firing. ASSESSMENT - Normal postoperative recovery and pain management considerations. PLAN - Continue current pain management with tramadol as needed. - Monitor wound healing and avoid swimming until the wound has healed, likely around six weeks post-op. - Postpone driving until off opioids and able to safely operate a vehicle. - Delay dental work for six months and take prophylactic antibiotics as advised before the procedure. DISPOSITION The patient is planned for discharge home today. Discharge Providers Provider Discharge Date: 05/12/25 Primary care physician: Alex Michel MD Consults: 05/11/25 06:30 Consult to Anesthesiology Routine Comment: Consulting Provider: Anesthesiologist Reason for consultation: Regional block for post operative pain control 05/11/25 11:56 Consult to Discharge Planning Routine Comment: Consult to Physical Therapy Evaluate & Treat Comment: Physician Instructions: post op WILLIAM protocol Discharge provider: Eb Cantu MD Exam Vital Signs (past 8 hours): - 05/12/25 08:00 Temperature 97.3 F L Pulse Rate 87 Respiratory Rate 16 Blood Pressure 105/51 L Pulse Oximetry 99 Oxygen Flow Rate 0 Oxygen Delivery Method Room Air Oxygen Flow Rate 0 Objective Labs 05/12/25 05:50 Labs: Laboratory Results - last 24 hr 05/12/25 05:50 Hgb 9.9 L Hct 30.1 L PFSH Medical History (Updated 03/24/25 @ 16:25 by Eb Cantu MD) Primary osteoarthritis of right hip Anesthesia complication History of COVID-19 (08/22/24) Bilateral primary osteoarthritis of hip Pain of right heel Elevated HDL Bilateral hip pain At average risk for colon cancer Screening for malignant neoplasm of breast Screening for malignant neoplasm of colon Vitamin D deficiency Menopause Vision impairment Urinary urgency History of urinary frequency Heartburn Arthritis Pneumonia Ankle fracture, left Depression Hypothyroidism Knee pain, bilateral Surgical History (Updated 05/06/25 @ 08:41 by Yesenia Monroe, NIKO) 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 2) Continue multimodal pain management w/ ice to the hip for additional pain control. Patient has post-op meds at home already. 3) ASA BID for DVT prophylaxis for 30 days. 4) WBAT, anterior hip precautions. Work w/ outpatient PT to improve mobility. 5) Keep dressing clean dry and intact for 2 weeks. NO soaking the incision site in pools or tubs. We will remove the dressing in office at your 2 week post-op appointment. Follow up w/ our office in 2 weeks for post-op visit and wound check. Call our office ([facility]) if any questions or concerns arise. Discharge Plan Discharge Plan Patient Disposition: Home Discharge orders & Medications Discharge Orders: Discharge (Order); Ordered 05/12/25 Ordered By: Nicky Collins Prescriptions: New aspirin 81 mg Tablet,Delayed Release (Dr/Ec) 81 mg PO BID 30 Days Qty: 60 0RF docusate sodium 100 mg Capsule 100 mg PO BID Qty: 30 0RF ondansetron 4 mg Tablet,Disintegrating 4 mg PO Q4-8H PRN (Reason: Nausea) Qty: 10 0RF Continued trazodone 50 mg tablet See Rx Instructions .ROUTE .COMPLEX Qty: 90 1RF Dose Instruction: TAKE 1 TABLET BY MOUTH AT BEDTIME Rx Instructions: TAKE 1 TABLET BY MOUTH AT BEDTIME levothyroxine 88 mcg tablet 88 mcg PO DAILY Qty: 90 1RF fluoxetine 60 mg tablet See Rx Instructions .ROUTE .COMPLEX Qty: 90 0RF Dose Instruction: TAKE 1 TABLET BY MOUTH DAILY Rx Instructions: TAKE 1 TABLET BY MOUTH DAILY cholecalciferol (vitamin D3) 25 mcg (1,000 unit) capsule 1,000 unit PO DAILY vitamin B complex Tablet 1 tab PO DAILY acetaminophen 500 mg Tablet 1,000 mg PO Q6H meloxicam 15 mg tablet 15 mg PO DAILY ascorbic acid (vitamin C) 1,000 mg capsule 1 g PO DAILY ondansetron 4 mg tablet,disintegrating 4 mg PO Q8H PRN (Reason: nausea and vomiting) Qty: 7 0RF Discontinued ibuprofen 200 mg Tablet 400 mg PO DAILY Follow up/Referrals: Alex Michel MD [Primary Care Provider, Family Practice] Eb Cantu MD [Physician, Orthopedic Surgery] Diet/Activity/Treatments Diet: Low-sodium Activity: WBAT, maintain anterior hip precautions. Work w/ outpatient PT to improve mobility and safe ambulation. Cold/Heat Therapy: Ice to the hip for additional pain control. Skin/Wound/Dressing Care Report to your healthcare provider any signs of infection, such as:: chills, fever, night sweats, unusual drainage and unusual redness Dressing: Keep dressing intact, clean and dry until 2 week post-op appointment. No soaking the incision site in pools or tubs. No topical ointments or creams to the incision site. Visit Report/Discharge Packet Instructions: DI for Hip Replacement, DI for Prescription Opioid Use Stand Alone Forms: Patient Portal/API Print Language: Bengali Discharge Data Primary Care Provider: Alex Michel Attending Provider: Eb Cantu Quality VTE Deep Vein Thrombosis/Pulmonary Embolism Present on Admission: No IH PROFEE Charge Codes Discharge inpatient/observation: [id number]
== END 2025-05-12 12:48 | disposition home or self-care (01) ==
LOC: OR 06:20 → AC 06:22
PROVIDERS: Family Provider Family Medicine; PCP Family Medicine; Referring Provider Orthopaedic Surgery Adult Reconstructive Orthopaedic Surgery; Visit Provider Orthopaedic Surgery Adult Reconstructive Orthopaedic Surgery
PROC: (CPT 27130; principal; 2025-05-11 07:45)
DX: M16.11 Unilateral primary osteoarthritis, right hip (principal); M25.751 Osteophyte, right hip
CPT/HCPCS: 27130; 73502; 76000; 85014; 85018; 97116; 97162; 97530; C1776; C1713; J0690; J1100; J1171; J2405; J2704; J3010

== ENCOUNTER → 2025-06-22 13:40 | Outpatient (CLI) | payer MEDICARE, SELFPAY ==
[2025-05-11 13:43] VITALS: BMI 36.0
[2025-06-22 14:09] LABS: Add Manual Diff / Slide Review NO; Hematocrit 32.7 % (36-46); Hemoglobin 10.5 g/dL (12.0-16.0); Lymphocytes Absolute Auto 1500 /uL (1100-4500); Mean Corpuscular HGB Conc 32.0 % (30-36); Mean Corpuscular Hemoglobin 25.0 PG (26-34); Mean Corpuscular Volume 77.9 fL (80-100); Platelet Count 258 X10^3/uL (150-400)
[2025-06-22 14:12] LABS: Appearance Urine UA SL CLOUDY; Bilirubin Urine UA NEGATIVE (NEGATIVE); Color Urine UA YELLOW; Glucose Urine UA NEGATIVE (Negative); Ketones Urine UA NEGATIVE (NEGATIVE); Leukocyte Esterase Urine UA 1+ (NEGATIVE); Nitrite Urine UA NEGATIVE (Negative); Occult Blood Urine UA NEGATIVE (Negative); Protein Urine UA NEGATIVE (Negative); Specific Gravity Urine UA 1.010 (1.000-1.035); Urobilinogen Urine UA 0.2 E.U./dL (0.2)
[2025-06-22 14:16] LABS: pH Urine UA 6.0 (4.5-8.0)
[2025-06-22 14:21] LABS: Culture Indicated Urine Specimen Cultured
[2025-06-22 14:23] LABS: HEMOLYSIS < 15 (0-50); Iron 37 ug/dL (37-170)
[2025-06-22 14:34] LABS: Percent Iron Saturation 12 % (15-50); Total Iron Binding Capacity 300 ug/dL (265-497); Transferrin 246 mg/dL (206-381)
[2025-06-22 15:00] LABS: Ferritin 9 ng/mL (11-264)
== END ==
PROVIDERS: PCP Family Medicine; Referring Provider Family Medicine; Visit Provider Family Medicine
DX: D64.9 Anemia, unspecified (principal); E03.9 Hypothyroidism, unspecified; E78.89 Other lipoprotein metabolism disorders; R35.0 Frequency of micturition
CPT/HCPCS: 36415; 81001; 82728; 83540; 83550; 85025; 87086

== ENCOUNTER → 2025-09-08 16:25 | Outpatient (CLI) | payer MEDICARE, SELFPAY ==
[2025-05-11 13:43] VITALS: BMI 36.0
[2025-09-08 17:26] LABS: Appearance Urine UA CLOUDY; Bilirubin Urine UA NEGATIVE (NEGATIVE); Color Urine UA YELLOW; Glucose Urine UA NEGATIVE (Negative); Ketones Urine UA TRACE (NEGATIVE); Leukocyte Esterase Urine UA NEGATIVE (NEGATIVE); Nitrite Urine UA NEGATIVE (Negative); Occult Blood Urine UA NEGATIVE (Negative); Protein Urine UA NEGATIVE (Negative); Specific Gravity Urine UA >=1.030 (1.000-1.035); Urobilinogen Urine UA 0.2 E.U./dL (0.2); pH Urine UA 6.0 (4.5-8.0)
[2025-09-08 17:41] LABS: Culture Indicated Urine Cult Not Indicated
== END ==
PROVIDERS: PCP Family Medicine; Visit Provider Obstetrics & Gynecology Gynecology
DX: N95.2 Postmenopausal atrophic vaginitis (principal); N39.41 Urge incontinence; R35.1 Nocturia; Z96.643 Presence of artificial hip joint, bilateral
CPT/HCPCS: 81001